=== PATIENT | female | born 1945 | race African-American/Black ===

== ENCOUNTER → 2021-10-11 15:45 | Outpatient (BNVA) | payer OTHER, SELFPAY | PROVIDERS: PCP Internal Medicine; Visit Provider Psychiatry & Neurology Neurology | DX: G25.9 Extrapyramidal and movement disorder, unspecified (principal); F09 Unspecified mental disorder due to known physiological condition | CPT/HCPCS: 99212 ==

== ENCOUNTER → 2021-12-16 09:53 | Outpatient (BNVA) | payer OTHER, SELFPAY | PROVIDERS: PCP Internal Medicine; Visit Provider Nurse Practitioner Family | DX: G25.9 Extrapyramidal and movement disorder, unspecified (principal); F09 Unspecified mental disorder due to known physiological condition; G47.10 Hypersomnia, unspecified; G47.33 Obstructive sleep apnea (adult) (pediatric); Z79.899 Other long term (current) drug therapy | CPT/HCPCS: 99212 ==

== ENCOUNTER → 2022-06-16 09:55 | Outpatient (BNVA) | payer OTHER, SELFPAY | PROVIDERS: PCP Internal Medicine; Visit Provider Nurse Practitioner Family | DX: G25.9 Extrapyramidal and movement disorder, unspecified (principal); F09 Unspecified mental disorder due to known physiological condition; G47.10 Hypersomnia, unspecified; G47.33 Obstructive sleep apnea (adult) (pediatric); Z79.899 Other long term (current) drug therapy | CPT/HCPCS: 99212 ==

== ENCOUNTER 2022-12-19 14:49 | Outpatient (AMB) | payer OTHER, SELFPAY ==
[2022-12-19 14:53] VITALS: BP 118/66; PULSE 86; O2SAT 95; BMI 31.4
--- NOTE | 2022-12-19 14:53 | MHC.OFFVIS ---
Intake Vital Signs 12/19/22 14:53 Height 5 ft 1 in Weight 166 lb 2 oz BMI 31.4 BP 118/66 Blood Pressure Location Rt brachial Position Sitting Pulse 86 Pulse Source Pulse Oximeter Pulse Oximetry (%) 95 Oxygen Delivery Method Room Air Intake Visit Reasons: 6 mnts f/u for sleep - Confirmed Intake Note: Pt presents to the office today for a 6 month follow up for sleep. Her sister states she hasnt seen any improvement in April in the past 6 months. Her sister states she still has no energy everyday. Accompanied by: Sister Allergies No Known Allergies Allergy (Verified 12/19/22 14:56) HPI HPI Comments History of Present Illness Details 77 y/o female patient presents with her sister for follow up of cognitive disorder and TORRES. Pt's sister states that her memory is about same, still forgetful and having difficulty following directions. She is on donepezil 10mg qd and namenda XR 28mg qHS. Pt needs assistance for ADLs and she is getting slow. She lives with her sister and she helps the patient for ADLs, medications and medical appointments. Pt's sister reports that patient has more sleepy during daytime. She is not physically or socially active. She goes to spiritism twice a week. She is on escitlopram to 10 mg qd for depression and her mood is stable. Pt moves slow but better with Simenet 25/100 mg, 1 tab BID. No falls since April. Denies light headedness or dizziness. Pt's sister states that patient uses CPAP almost every night but keep taking off the mask during the sleep. The CPAP compliance the therapy response reviewed but shows not compliant. Pt's sister thinks that the record is wrong, she put the CPAP on every night for patient. She is on APAP [id number]. [facility] Medical History Depression Diabetes Family History Father Cancer Mother HTN (hypertension) Social History Alcohol intake: never Patient Tobacco Use Status: Never used Tobacco Review of Systems ENT Reports Normal hearing present Neuro Reports Normal hearing present Physical Exam Vital Signs: Last Vital Signs Pulse 86 12/19/22 14:53 BP 118/66 12/19/22 14:53 Pulse Ox 95 12/19/22 14:53 Oxygen Delivery Method Room Air 12/19/22 14:53 BMI result Body Mass Index 31.4 Const General: cooperative Nutritional Appearance: overweight Orientation/consciousness: oriented to person and oriented to place Limitations: language barrier Neuro Other: Mild bradykinesia. Decreased facial expression and blink. Gait slow, good stride and steps, decreased arm swings. 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 The total AHI was 68/hr and oxygen corina was 83%. Code(s): G47.33 - Obstructive sleep apnea (adult) (pediatric) Plan Advised patient to continue to take aricept 10mg, namenda XR 28 mg qd and sinemet 25/100 bid. Continue to use APAP at [id number] to treat TORRES. Stressed compliance, nightly and more than 4 hours. Request the CPAP compliance report from [facility]. Encourage patient to increase daily physical and cognitive activity. Medications: Refilled memantine 28 mg PO DAILY 30 ea 6RF 30 days Coding Level of Care Code Est Pt Level 4 (65035) Diagnoses Extrapyramidal and movement disorder G25.9 Cognitive disorder F09 Hypersomnia G47.10 TORRES (obstructive sleep apnea) G47.33
== END 2022-12-19 15:22 | disposition home or self-care (01) ==
PROVIDERS: Visit Provider Nurse Practitioner Family
DX: R41.89 Other symptoms and signs involving cognitive functions and awareness (principal); G25.9 Extrapyramidal and movement disorder, unspecified; G47.10 Hypersomnia, unspecified; G47.33 Obstructive sleep apnea (adult) (pediatric)
CPT/HCPCS: 99214

== ENCOUNTER → 2022-12-19 14:49 | Outpatient (BNVA) | payer OTHER, SELFPAY | PROVIDERS: Visit Provider Nurse Practitioner Family | DX: G47.33 Obstructive sleep apnea (adult) (pediatric) (principal); G47.10 Hypersomnia, unspecified; F09 Unspecified mental disorder due to known physiological condition; G25.9 Extrapyramidal and movement disorder, unspecified | CPT/HCPCS: 99212 ==

== ENCOUNTER 2023-10-06 15:26 | Outpatient (AMB) | payer OTHER, SELFPAY ==
--- NOTE | 2023-10-06 15:28 | MHC.OFFVIS ---
Vital Signs 10/06/23 15:29 Height 5 ft 1 in Weight 158 lb BMI 29.9 BP 118/80 Blood Pressure Location Rt brachial Position Sitting Pulse 80 Pulse Source Pulse Oximeter Pulse Oximetry (%) 97 Oxygen Delivery Method Room Air Intake Visit Reasons: F/U - Conf Intake Note: Patient presents for follow up. Patient uses CPAP here and there. Allergies No Known Allergies Allergy (Verified 10/06/23 15:37) HPI Comments Details: 77-yr-old female presents for f/u visit. Accompanied by her daughter. Pt denies any significant interval medical changes. Patient states that she is using her CPAP machine nightly.? However she has to take it off multiple times at night when she gets up to go to the bathroom,? and then does not always put it back on.? Her daughter thinks that she uses it for about 2 hours a night. ?Her Pap compliance report shows 1 day of 2 hour use. ?However, her dtr notes that in the last 2 months, patient has been having less daytime tiredness.? She does continue to snore. ? She wonders if the status of her sleep apnea has changed. [facility] Medical History Depression Diabetes Family History Father Cancer Mother HTN (hypertension) Social History Alcohol intake: never Patient Tobacco Use Status: Never used Tobacco Physical Exam Vital Signs: Last Vital Signs Pulse 80 10/06/23 15:29 BP 118/80 10/06/23 15:29 Pulse Ox 97 10/06/23 15:29 Oxygen Delivery Method Room Air 10/06/23 15:29 BMI result Body Mass Index 29.9 Const General: cooperative and no acute distress Orientation/consciousness: patient oriented x3 Resp Effort & Inspection: normal respiratory effort and able to speak in complete sentences Neuro General: patient oriented x3 Cranial nerves: Yes CN's II-XII intact bilaterally Cognition (Neuro): normal cognition Psych Appearance: grossly normal Mental Status: mental status grossly normal Speech and movement: Normal speech and movement present Affect: normal affect Attitude: cooperative Assessment & Plan Assessment & Plan (1) TORRES (obstructive sleep apnea): Comment: Severe degree of sleep apnea. The total AHI was 68/hr and oxygen corina was 83%. Code(s): G47.33 - Obstructive sleep apnea (adult) (pediatric) Category: Medical Plan Patient advised to undergo follow-up in-lab sleep study to assess status of sleep apnea. We will request split night PAP titration, if AHI is over 35 events per hour. Reviewed complications of untreated severe obstructive sleep apnea, including cardiovascular, metabolic, and cognitive dysfunction. f/u upon review of above and in 6 months or sooner prn. Orders: Orders RT PSG in-lab sleep study 10/06/23 G47.33 - Obstructive sleep apnea (adult) (pediatric) Coding Level of Care Code Est Pt Level 3 (55513) Diagnoses TORRES (obstructive sleep apnea) G47.33
[2023-10-06 15:29] VITALS: BP 118/80; PULSE 80; O2SAT 97; BMI 29.9
== END 2023-10-06 16:04 | disposition home or self-care (01) ==
PROVIDERS: PCP Internal Medicine; Visit Provider Nurse Practitioner Family
DX: G47.33 Obstructive sleep apnea (adult) (pediatric) (principal)
CPT/HCPCS: 99213

== ENCOUNTER → 2023-10-06 15:26 | Outpatient (BNVA) | payer OTHER, SELFPAY | PROVIDERS: PCP Internal Medicine; Visit Provider Nurse Practitioner Family | DX: G47.33 Obstructive sleep apnea (adult) (pediatric) (principal) | CPT/HCPCS: 99212 ==

== ENCOUNTER → 2023-10-20 20:30 | Outpatient (REF) | payer OTHER, SELFPAY | LOC: HO.SL 20:30 | PROVIDERS: PCP Student in an Organized Health Care Education/Training Program; Visit Provider Nurse Practitioner Family | DX: G47.33 Obstructive sleep apnea (adult) (pediatric) (principal) | CPT/HCPCS: 95810 ==

== ENCOUNTER → 2024-01-10 20:30 | Outpatient (REF) | payer OTHER, SELFPAY | LOC: HO.SL 20:30 | PROVIDERS: PCP Student in an Organized Health Care Education/Training Program; Visit Provider Nurse Practitioner Family | DX: G47.33 Obstructive sleep apnea (adult) (pediatric) (principal) | CPT/HCPCS: 95811 ==

== ENCOUNTER → 2024-01-10 23:00 | Outpatient (BNV) | payer OTHER, SELFPAY | PROVIDERS: PCP Student in an Organized Health Care Education/Training Program; Visit Provider Psychiatry & Neurology Neurology | DX: G47.33 Obstructive sleep apnea (adult) (pediatric) (principal) | CPT/HCPCS: 95811 ==

== ENCOUNTER 2024-05-03 14:36 | Outpatient (AMB) | payer OTHER, SELFPAY ==
--- NOTE | 2024-05-03 14:37 | MHC.OFFVIS ---
Vital Signs 05/03/24 14:37 Height 5 ft 1 in Intake Visit Reasons: 6 month [phone] Intake Note: patient presents for follow up. Allergies No Known Allergies Allergy (Verified 05/03/24 14:37) Medication List - Last Reconciled 05/03/24 by PETER Reeder atorvastatin 20 mg PO DAILY carbidopa-levodopa 25-100 mg (Sinemet) 1 tab PO BID 90 days dapagliflozin propanediol (Farxiga) 10 mg PO DAILY donepezil 10 mg PO QAM dorzolamide-timolol 22.3-6.8 mg/mL 1 drp ophthalmic (eye) BID escitalopram oxalate 10 mg PO DAILY lamotrigine 25 mg PO BID lancets (FreeStyle Lancets) As directed magnesium oxide 400 mg PO BEDTIME 30 days melatonin 3 mg PO BEDTIME 30 days memantine 28 mg PO DAILY 30 days metformin ER 500 mg PO DAILY netarsudil 0.02% (Rhopressa) 1 drp ophthalmic (eye) BEDTIME polyethylene glycol 3350 (Miralax) 17 grams PO DAILY HPI Comments Details: 78-yr-old female presents for f/u televideo visit for TORRES and movement Disorder. Accompanied by her nephew. Pt denies any significant interval medical changes. 10/20/2023, In-lab PSG: Results were consistent with severe obstructive sleep apnea, with AHI 51/hour, REM AHI 68.8/hour, O2 corina 83%, SpO2 under 88% for 1.4 minutes of study, average SpO2 95%, PLMS 0/hour. 01/10/2024, in-lab PAP titration study, showed stabilization of breathing and oxygenation levels at BiPAP 18/14 cm H2O. Following the above studies, an order was sent for BiPAP 18/14 cm H[facility]. Patient states she did not receive a new BiPAP machine. She states she is no longer using any sort of Pap therapy at this point. Patient reports she is independent with ADLs Family does help with IADLs. She states her memory is variable, but okay. She denies hyposmia, dysphagia, tremor, rigidity, parasomnias, gait difficulties, falls. [facility] Medical History Diabetes Depression Family History Father Cancer Mother HTN (hypertension) Social History Alcohol intake: never Patient Tobacco Use Status: Never used Tobacco Telehealth Telehealth Telehealth Platform: [employer] Location of provider rendering services: practice address Location of patient: address on file Patient Identification confirmed using: Name, : Yes Telehealth method: video Patient verbally consented to treatment: Yes Patient verbally consented to billing insurance company: Yes Patient informed of any privacy concerns related to visit: Yes Minutes spent on Phone/Video with Pt.: 16 Assessment & Plan Assessment & Plan (1) Severe obstructive sleep apnea: Code(s): G47.33 - Obstructive sleep apnea (adult) (pediatric) Category: Medical (2) 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 We will follow-up on order for BiPAP 18/14 cm H2O. Once received, use BiPAP nightly greater than 4 hours for optimal effect. Clean and change PAP supplies routinely. Use distilled water in Pap water reservoir take. For movement disorder symptoms: Continue carbidopa levodopa 25-100 mg 1 tab b.i.d. f/u upon review of above and in 6 months or sooner prn. Medications: Refilled carbidopa-levodopa 25-100 mg (Sinemet) 1 tab PO BID 180 tabs 1RF 90 days Coding Level of Care Code Tele Est Pt Level 4 (86201) Diagnoses Severe obstructive sleep apnea G47.33 Extrapyramidal and movement disorder G25.9
== END 2024-05-03 16:10 | disposition home or self-care (01) ==
LOC: HO.HSMS 14:36
PROVIDERS: PCP Student in an Organized Health Care Education/Training Program; Visit Provider Nurse Practitioner Family
DX: G47.33 Obstructive sleep apnea (adult) (pediatric) (principal); G25.9 Extrapyramidal and movement disorder, unspecified
CPT/HCPCS: 99214

== ENCOUNTER 2024-11-05 14:40 | Outpatient (AMB) | payer OTHER, SELFPAY ==
--- OUTSIDE RECORDS SUMMARY | 2024-08-15 07:00 | XMS_ITS ---
Author Organization [facility] [address] Address [address] [place] [address] Care Team Providers Care Smutter Name Role Phone GAVI DE LOS SANTOS Unavailable [phone] SHAREE GORDON Unavailable [phone] REASON FOR VISIT labs Encounters Encounter Location Date Provider Diagnosis [facility] [address] [address] 08/15/2024 SHAREE GORDON Plan Of Treatment Next Appt Details Provider Name:SHAREE GORDON, 11/28/2024 09:30:00 AM, [address], [address], Progress Notes * JEANNETTE DECKER DDOB :1945 (79 yo F)Acc No.[id number]:08/15/2024 Progress Note Patient: Bill CHO JEANNETTE SANTANA Provider: Patience GORDON NP :1945 A ge:78 Y S ex:Female Date:08/15/2024 Address:[address] [place] [address] Subjective: * Chief Complaints: * 1 . Labs. * Medical History: Objective: * Vitals: Assessment: Plan: * Treatment: * Images: Billing Information: * Visit Code: * Procedure Codes: Care Plan Details* * Electronic signature of LEONARDO GORDON on 11/05/2024 at 04:00 PM EDT Sign off status: Pending * Provider: Patience GORDON NP Date: 0 08/15/2024 Generated for Stan yao/Esther/Naun on: 0 11/05/2024 04:00 PM EDT
--- NOTE | 2024-11-05 14:58 | A.OFFVIS_ITS ---
Vital Signs 11/05/24 14:59 Height 5 ft 1 in Weight 169 lb 6 oz BMI 32.0 BP 114/68 Blood Pressure Location Rt brachial Position Sitting Pulse 93 Pulse Source Pulse Oximeter Pulse Oximetry (%) 97 Oxygen Delivery Method Room Air Intake Visit Reasons: Follow Up 6mo Intake Note: Patient presents 6 month follow up for TORRES. Accompanied by: Sister Allergies No Known Allergies Allergy (Verified 11/05/24 14:59) HPI Comments Details: 79-yr-old female presents for f/u televideo visit for TORRES and movement Disorder. Accompanied by her daughter. Pt denies any significant interval medical changes. 10/20/2023, In-lab PSG: Results were consistent with severe obstructive sleep apnea, with AHI 51/hour, REM AHI 68.8/hour, O2 corina 83%, SpO2 under 88% for 1.4 minutes of study, average SpO2 95%, PLMS 0/hour. 01/10/2024, in-lab PAP titration study, showed stabilization of breathing and oxygenation levels at BiPAP 18/14 cm H2O. Since the last visit, patient has started BiPAP 18/14 cm H2O nightly, however patient is prone to taking it off after going to the bathroom. She denies any specific difficulties using her BiPAP machine. She states she sleeps well with BiPAP. * BiPAP compliance [facility] report * [facility] * Compliance Report: 10/06/2024 - 11/04/2024 * Overall usage days days 30/30 days (100%) * Usage greater than 4 hours: 17% * Average usage (days used) 2 hours 48 minutes * [employer] [facility] * Serial number [id number] * Mode Spont IPAP 18 cmH2O EPAP 14 cmH2O Easy-Breathe On * Median leaks: 8.8 3 2 per minute * Residual AHI: 2.8 per hour Patient reports she is independent with ADLs, however daughter states she needs help with socks and shoes. Family does help with IADLs. She states her memory is variable, but okay. Patient does not exercise much-typically just walks with in the house from the kitchen to the living room. She does enjoy playing dominoes with the family. Patient denies any recent involuntary movements She denies hyposmia, dysphagia, tremor, rigidity, parasomnias, gait difficulties, falls. PFSH Medical History Diabetes Depression Family History Father Cancer Mother HTN (hypertension) Social History Alcohol intake: never Patient Tobacco Use Status: Never used Tobacco Physical Exam Vital Signs: Last Vital Signs Pulse 93 11/05/24 14:59 BP 114/68 11/05/24 14:59 Pulse Ox 97 11/05/24 14:59 Oxygen Delivery Method Room Air 11/05/24 14:59 BMI result Body Mass Index 32.0 Const General: cooperative Nutritional Appearance: overweight Neuro Other: Alert and responding appropriately Mild facial expression and blink No tremors FFM decreased mildly R>L Foot taps - decreased amanda R>L Slow to stand, decreased arm swing, starts steps, steady gait, steady turn Assessment & Plan Assessment & Plan (1) Severe obstructive sleep apnea: Code(s): G47.33 - Obstructive sleep apnea (adult) (pediatric) Category: Medical (2) Extrapyramidal and movement disorder: Comment: ?parkinsons Code(s): G25.9 - Extrapyramidal and movement disorder, unspecified Category: Medical Plan For severe TORRES: Continue BiPAP 18/14 cm H2O, as patient is having improved sleep with the use. Patient is encouraged to use nightly greater than 4 hours for optimal effect, however use maybe limited due to patient's cognitive impairments. Clean and change PAP supplies routinely. Use distilled water in Pap water reservoir take. For movement disorder symptoms: Continue carbidopa levodopa 25-100 mg 1 tab b.i.d. Continue memantine ER 28 mg daily. Patient encouraged to engage in regular cognitive and social stimulating activities. Patient encouraged to increase regular physical activity. f/u upon review of above and in 6 months or sooner prn. Coding Level of Care Code Est Pt Level 4 (13377) Diagnoses Severe obstructive sleep apnea G47.33 Extrapyramidal and movement disorder G25.9
[2024-11-05 14:59] VITALS: BP 114/68; PULSE 93; O2SAT 97; BMI 32.0
--- OUTSIDE RECORDS SUMMARY | 2024-11-05 16:00 | XMS_ITS | Clinical Summary ---
Author Organization [facility] Address [address] [place] [address] Phone Care Team Providers Care Starting Gate Driver Name Role Phone Gavi Puala MD Primary Care Provider [phone] Surgical History Surgery Date Site/Laterality Comments SHOULDER SURGERY Right PROCEDURE: HISTORICAL SHOULDER SURGERY CHOLECYSTECTOMY PROCEDURE: [place] CHOLECYSTECTOMY COLONOSCOPY PROCEDURE: HISTORICAL COLONOSCOPY Medical History Medical History Date Comments Depression DX:Depression Family History Medical History Relation Name Comments Hypertension Mother Relation Name Status Comments Brother 1 Alive Brother 2 Alive Brother 3 Alive Brother 4 Alive Father Mother Sister 1 Alive Sister 2 Alive Sister 3 Alive Sister 4 Alive Sister 5 Alive Social History Tobacco Use Types Packs/Day Years Used Date Smoking Tobacco: Never Smokeless Tobacco: Never Alcohol Use Standard Drinks/Week Comments Never 0 (1 standard drink = 0.6 oz pur e alcohol) Comments Unknown Sex and Gender Information Value Date Recorded Sex Assigned at Not on file Legal Sex Female 2:14 AM EST Gender Identity Not on file Sexual Orientation Not on file Obstetrics History Plan of Treatment Health Maintenance Due Date Last Done Comments Diabetes: Annual Foot Exam 10/23/1957 Diabetes: Annual Retina Eye Exam 10/23/1957 Pneumococcal Vaccine: 50+ Years (1 of 2 - PCV) 10/23/1966 Zoster Vaccines (1 of 2) 10/23/1997 Depression Screening 03/27/2022 Falls Risk Assessment 03/27/2022 Hepatitis C Screening 03/27/2022 Osteoporosis Screening (Bone Density Screening) 03/27/2022 Social Influencers of Health Screening 03/27/2022 Diabetes: Annual Urine Albumin-Creatinine Ratio (uACR) 04/07/2022 RSV Immunization Adult Patients (1 - 1-dose 75+ series) 10/23/2022 COVID-19 Vaccine ( season) 2023 03/16/2021 Influenza Vaccine (#1) 2024 2, 01/26/2021, 02/22/2020 Diabetes: Blood Sugar Control Test (HGBA1C) 02/12/2025 08/13/2024 Diabetes: Annual GFR (Glomerular Filtration Rate) 08/13/2025 08/13/2024 Hypertension/CHF/CAD Annual BMP Blood Test 08/13/2025 08/13/2024 Cholesterol Screening (Lipid Panel) 08/13/2029 08/13/2024 DTaP,Tdap,and Td Vaccines (2 - Td or Tdap) 04/30/2032 04/30/2022 Breast Cancer Screening Discontinued 06/21/19 24, 05/26/2022, 04/01/2021, Additional history exists HIB Vaccines Aged Out No longer eligi ble based on patient's age to complete this topic HPV Vaccines Aged Out No longer eligi ble based on patient's age to complete this topic Hepatitis A Vaccines Aged Out No long er eligible based on patient's age to complete this topic Hepatitis B Vaccines Aged Out No long er eligible based on patient's age to complete this topic IPV Vaccines Aged Out No longer eligi ble based on patient's age to complete this topic MMR Vaccines Aged Out No longer eligi ble based on patient's age to complete this topic Meningococcal ACWY Vaccine Aged Out N o longer eligible based on patient's age to complete this topic Meningococcal B Vaccine Aged Out No l onger eligible based on patient's age to complete this topic RSV Immunization Patients Under 20 months Aged Out No longer eligible based on patient's age to complete this topic Varicella Vaccines Aged Out No longer eligible based on patient's age to complete this topic Procedures Procedure Name Priority Date/Time Associated Diagnosis Comments URINALYSIS WITH REFLEX MICROSCOPIC Routine 08/13/2024 3:37 PM EDT Diabetic complication (CMS/HCC V24, CMS/HCC V28) Hyperlipemia Myxedema heart disease Avitaminosis D URINALYSIS WITH REFLEX MICROSCOPIC Routine 08/13/2024 3:37 PM EDT Diabetic complication (CMS/HCC V24, CMS/HCC V28) Hyperlipemia Myxedema heart disease Avitaminosis D CULTURE URINE Routine 08/13/2024 3:37 PM EDT Diabetic complication (CMS/HCC V24, CMS/HCC V28) Hyperlipemia Myxedema heart disease Avitaminosis D CBC WITH AUTO DIFFERENTIAL Routine 08/13/2024 8:09 AM EDT Diabetic complication (CMS/HCC V24, CMS/HCC V28) Hyperlipemia Myxedema heart disease Avitaminosis D VITAMIN D 25 HYDROXY Routine 08/13/2024 8:09 AM EDT Diabetic complication (CMS/HCC V24, CMS/HCC V28) Hyperlipemia Myxedema heart disease Avitaminosis D CBC AND DIFFERENTIAL Routine 08/13/2024 8:09 AM EDT Diabetic complication (CMS/HCC V24, CMS/HCC V28) Hyperlipemia Myxedema heart disease Avitaminosis D COMPREHENSIVE METABOLIC PANEL Routine 08/13/2024 8:09 AM EDT Diabetic complication (CMS/HCC V24, CMS/HCC V28) Hyperlipemia Myxedema heart disease Avitaminosis D HEMOGLOBIN A1C Routine 08/13/2024 8:09 AM EDT Diabetic complication (CMS/HCC V24, CMS/HCC V28) Hyperlipemia Myxedema heart disease Avitaminosis D LIPID PANEL WITH REFLEX TO DIRECT LDL Routine 08/13/2024 8:09 AM EDT Diabetic complication (CMS/HCC V24, CMS/HCC V28) Hyperlipemia Myxedema heart disease Avitaminosis D THYROID STIMULATING HORMONE Routine 08/13/2024 8:09 AM EDT Diabetic complication (CMS/HCC V24, CMS/HCC V28) Hyperlipemia Myxedema heart disease Avitaminosis D VISH SCREENING DIGITAL Routine 06/21/2023 4:40 PM EST Encounter for screening mammogram for malignant neoplasm of breast from Last 3 Months or Most Recently Relevant to Health Maintenance Results * Urinalysis with reflex microscopic (08/13/2024 3:37 PM EDT) Pathologist [facility] [place] Urine 1.006 1.003 - 1.030 LAB URINALYSIS - AUTOMATED METHOD 08/13/2024 3:54 PM EDT [facility] pH, Urine 8.0 5.0 - 8.0 pH LAB URINALYSIS - AUTOMATED METHOD 08/13/2024 3:54 PM EDT [facility] Leukocytes, Urine Negative Negative LAB URINALYSIS - AUTOMATED METHOD 08/13/2024 3:54 PM EDT [facility] Nitrite, Urine Negative Negative LAB URINALYSIS - AUTOMATED METHOD 08/13/2024 3:54 PM EDT [facility] Protein, Urine Negative <=Trace mg/dL LAB URINALYSIS - AUTOMATED METHOD 08/13/2024 3:54 PM [facility] Glucose, Urine Negative Negative mg/dL LAB URINALYSIS - AUTOMATED METHOD 08/13/2024 3:54 PM T [facility] Ketones, Urine Negative Negative mg/dL LAB URINALYSIS - AUTOMATED METHOD 08/13/2024 3:54 PM T [facility] Urobilinogen, Urine 0.2 0.2 - 1.0 mg/dL LAB URINALYSIS - AUTOMATED METHOD 08/13/2024 3:54 PM [facility] Bilirubin, Urine Negative Negative LAB URINALYSIS - AUTOMATED METHOD 08/13/2024 3:54 PM T [facility] Blood, Urine Negative Negative LAB URINALYSIS - AUTOMATED METHOD 08/13/2024 3:54 PM [facility] Urine Urine specimen obtained by clean catch procedure / Unknown Non-blood Collection / Unknown 08/13/2024 3:37 PM EDT 08/13/2024 3:43 PM EDT us Ronni Bradley NP LAB URINE ORDERABLES Final Re sult [facility] [address] [place] [address], [place] [phone] * Culture urine (08/13/2024 3:37 PM EDT) [facility] Culture, Urine No growth 08/14/2024 7:25 AM EDT [facility] Urine Urine specimen obtained by clean catch procedure / Unknown Non-blood Collection / Unknown 08/13/2024 3:37 PM EDT 08/13/2024 3:43 PM EDT Ronni Bradley NP LAB MICROBIOLOGY - GENERAL OR DERABLES Final Result [facility] [address] [place] [address], [place] [phone] * Lipid panel with reflex to direct LDL (08/13/2024 8:09 AM EDT) [facility] Cholesterol 160 0 - 200 mg/dL LAB CHEMISTRY METHOD 08/13/2024 10:10 AM [facility] Triglycerides 131 0 - 150 mg/dL LAB CHEMISTRY METHOD 08/13/2024 10:10 AM [facility] HDL 69 >=40 mg/dL LAB CHEMISTRY METHOD 08/13/2024 10:10 AM [facility] LDL Calculated 65 0 - 100 mg/dL LAB CHEMISTRY METHOD 08/13/2024 10:10 AM T [facility] VLDL Cholesterol Rogelio 26.2 mg/dL LAB CHEMISTRY METHOD 08/13/2024 10:10 AM EDT [facility] Non HDL Chol. (LDL+VLDL) 91 <145 mg/dL LAB CHEMISTRY METHOD 08/13/2024 10:10 AM [facility] Chol/HDL Ratio 2.3 0.0 - 4.4 LAB CHEMISTRY METHOD 08/13/2024 10:10 AM [facility] Blood Venous blood specimen / Unknown Venipuncture / Unknown 08/13/2024 8:09 AM EDT 08/13/2024 9:10 AM EDT us Ronni Bradley RELAY MOTORMAN LAB BLOOD ORDERABLES Final Re sult [facility] [address] [place] [address], * (ABNORMAL) CBC auto differential (08/13/2024 8:09 AM EDT) WBC 7.0 4.8 - 10.8 K/mcL LAB HEMETOLOGY METHOD 08/13/2024 9:31 AM [facility] RBC 4.10 3.80 - 4.80 M/mcL LAB HEMETOLOGY METHOD 08/13/2024 9:31 AM [facility] Hemoglobin 11.0(L) 11.5 - 16.0 g/dL LAB HEMETOLOGY METHOD 08/13/2024 9:31 AM [facility] Hematocrit 35.6 35.0 - 47.0 % LAB HEMETOLOGY METHOD 08/13/2024 9:31 AM [facility] MCV 87.3 79.0 - 98.0 FL LAB HEMETOLOGY METHOD 08/13/2024 9:31 AM [facility] MCH 27.0 27.0 - 32.0 pcg LAB HEMETOLOGY METHOD 08/13/2024 9:31 AM [facility] MCHC 30.9(L) 32.0 - 37.0 g/dL LAB HEMETOLOGY METHOD 08/13/2024 9:31 AM [facility] RDW 14.0 11.0 - 15.0 % LAB HEMETOLOGY METHOD 08/13/2024 9:31 AM [facility] Platelets 302 130 - 400 K/mcL LAB HEMETOLOGY METHOD 08/13/2024 9:31 AM [facility] MPV 11.0 7.0 - 11.0 FL LAB HEMETOLOGY METHOD 08/13/2024 9:31 AM [facility] NRBC 0.0 <1.0 % LAB HEMETOLOGY METHOD 08/13/2024 9:31 AM [facility] NRBC Absolute 0.00 <0.10 K/mcL LAB HEMETOLOGY METHOD 08/13/2024 9:31 AM [facility] Neutrophils Relative 55.5 % LAB HEMETOLOGY METHOD 08/13/2024 9:31 AM [facility] Lymphocytes Relative 33.8 % LAB HEMETOLOGY METHOD 08/13/2024 9:31 AM [facility] Monocytes Relative 8.9 % LAB HEMETOLOGY METHOD 08/13/2024 9:31 AM [facility] Eosinophils Relative 1.1 % LAB HEMETOLOGY METHOD 08/13/2024 9:31 AM [facility] Basophils Relative 0.4 % LAB HEMETOLOGY METHOD 08/13/2024 9:31 AM [facility] Immature Granulocytes Relative 0.3 % LAB HEMETOLOGY METHOD 08/13/2024 9:31 AM [facility] Neutrophils Absolute 3.90 1.50 - 7.00 K/mcL LAB HEMETOLOGY METHOD 08/13/2024 9:31 AM [facility] Lymphocytes Absolute 2.38 1.00 - 5.00 K/mcL LAB HEMETOLOGY METHOD 08/13/2024 9:31 AM [facility] Monocytes Absolute 0.63 0.20 - 1.00 K/mcL LAB HEMETOLOGY METHOD 08/13/2024 9:31 AM [facility] Eosinophils Absolute 0.08 0.00 - 0.50 K/[facility] LAB HEMETOLOGY METHOD 08/13/2024 9:31 AM EDT [facility] Basophils Absolute 0.03 0.00 - 0.20 K/[facility] LAB HEMETOLOGY METHOD 08/13/2024 9:31 AM EDT [facility] Immature Granulocytes Absolute 0.02 0.00 - 0.03 K/[facility] LAB HEMETOLOGY METHOD 08/13/2024 9:31 AM EDT [facility] Blood Venous blood specimen / Unknown Venipuncture / Unknown 08/13/2024 8:09 AM EDT 08/13/2024 9:11 AM EDT Ronni Bradley [employer] LAB BLOOD ORDERABLES Final Re sult Performing Organization Address City/[facility]/ZIP Co de Phone Number [facility] [address] [place] [address], [place] [phone] * Vitamin D 25 hydroxy (08/13/2024 8:09 AM EDT) Vit D, 25-Hydroxy 30.1 30.0 - 80.0 ng/mL LAB CHEMISTRY METHOD 08/13/2024 11:09 AM EDT [facility] Blood Venous blood specimen / Unknown Venipuncture / Unknown 08/13/2024 8:09 AM EDT 08/13/2024 9:10 AM EDT Ronni Bradley [employer] LAB BLOOD ORDERABLES Final Re sult [facility] [address] [place] [address], [place] [phone] * Thyroid stimulating hormone (08/13/2024 8:09 AM EDT) TSH 2.02 0.40 - 4.00 mcIU/mL LAB CHEMISTRY METHOD 08/13/2024 11:10 AM EDT [facility] Blood Venous blood specimen / Unknown Venipuncture / Unknown 08/13/2024 8:09 AM EDT 08/13/2024 9:10 AM EDT Ronni Bradley [employer] LAB BLOOD ORDERABLES Final Re sult Performing Organization Address [facility]/ZIP Co de Phone Number [facility] [address] [place] [address], [place] [phone] * (ABNORMAL) Hemoglobin A1c (08/13/2024 8:09 AM EDT) Hemoglobin A1C 6.8(H) <6.5 % LAB CHEMISTRY METHOD 08/13/2024 11:45 AM EDT [facility] Mean Bld Glu Estim. 148 mg/dL LAB CHEMISTRY METHOD 08/13/2024 11:45 AM EDT [facility] Blood Venous blood specimen / Unknown Venipuncture / Unknown 08/13/2024 8:09 AM EDT 08/13/2024 9:11 AM EDT us Ronni Bradley [employer]AY [employer] LAB BLOOD ORDERABLES Final Re sult Performing Organization Address [facility]/ZIP Co de Phone Number [facility] [address] [place] [address], * (ABNORMAL) Comprehensive metabolic panel (08/13/2024 8:09 AM EDT) Sodium 138 133 - 145 mmol/L LAB CHEMISTRY METHOD 08/13/2024 10:10 AM EDT [facility] Potassium 4.4 3.5 - 5.5 mmol/L LAB CHEMISTRY METHOD 08/13/2024 10:10 AM EDT [facility] Chloride 105 96 - 110 mmol/L LAB CHEMISTRY METHOD 08/13/2024 10:10 AM EDT [facility] CO2 27 21 - 32 mmol/L LAB CHEMISTRY METHOD 08/13/2024 10:10 AM [facility] Anion Gap 6 3 - 11 LAB CHEMISTRY METHOD 08/13/2024 10:10 AM [facility] Glucose 108(H) 70 - 100 mg/dL LAB CHEMISTRY METHOD 08/13/2024 10:10 AM [facility] BUN 19 5 - 25 mg/dL LAB CHEMISTRY METHOD 08/13/2024 10:10 AM [facility] Creatinine 0.84 0.50 - 1.10 mg/dL LAB CHEMISTRY METHOD 08/13/2024 10:10 AM [facility] eGFR 72 >=60 mL/min/1. 73m2 LAB CHEMISTRY METHOD 08/13/2024 10:10 AM [facility] Comment:Calculation based on the Chronic Kidney Disease Epidemiology Collaboration (CKD-EPI) equation refit without adjustment for race. BUN/Creatinine Ratio 22.6 LAB CHEMISTRY METHOD 08/13/2024 10:10 AM [facility] Calcium 9.4 8.5 - 10.5 mg/dL LAB CHEMISTRY METHOD 08/13/2024 10:10 AM [facility] AST (SGOT) 17 10 - 42 unit/L LAB CHEMISTRY METHOD 08/13/2024 10:10 AM [facility] ALT (SGPT) 32 10 - 60 unit/L LAB CHEMISTRY METHOD 08/13/2024 10:10 AM [facility] Alkaline Phosphatase 91 42 - 121 unit/L LAB CHEMISTRY METHOD 08/13/2024 10:10 AM [facility] Total Protein 7.4 6.0 - 8.0 g/dL LAB CHEMISTRY METHOD 08/13/2024 10:10 AM [facility] Albumin 3.9 3.2 - 5.0 g/dL LAB CHEMISTRY METHOD 08/13/2024 10:10 AM [facility] Total Bilirubin 0.3 0.0 - 1.4 mg/dL LAB CHEMISTRY METHOD 08/13/2024 10:10 AM EDT [facility] Blood Venous blood specimen / Unknown Venipuncture / Unknown 08/13/2024 8:09 AM EDT 08/13/2024 9:10 AM EDT us Ronni Bradley RELAY MOTOR[employer] LAB BLOOD ORDERABLES Final Re sult [facility] [address] [place] [address], * VISH SCREENING DIGITAL (06/21/2023 4:40 PM EST) Anatomical Region Laterality Modality Mammography 06/21/2023 3:37 PM EST Narrative 06/21/2023 4:40 PM EST [facility] Diagnostic Imaging Department [address] [place] [address] Patient: APRIL JEAN /Age/Sex: 1945 - 77 - F Unit#: [id number] Location/Status: SPDIMAM/REG CLI Mnemonic/Ordering Site: DIGSC/SPMAM Ordering Physician: GAVI PAULA MD Vish Screening Digital - 06/21/23 - 3028 Report Status:Signed EXAM: Vish Screening Digital EXAM DATE AND TIME: 06/21/2023 4:22 PM HISTORY: Annual screening COMPARISON: Multiple exams dating back to 2019 TECHNIQUE: Bilateral digital breast tomosynthesis was performed in the CC and MLO projections. Computer aided detection with [employer] 3D 3.1 was employed. TISSUE DENSITY: b. There are scattered areas of fibroglandular density. FINDINGS: No suspicious masses, grouped microcalcifications, or areas of architectural distortion are seen. The skin and vascularity are unremarkable. IMPRESSION: Stable mammographic appearance of the breasts. No evidence of malignancy is seen. A negative mammogram in the presence of a clinically suspicious palpable abnormality does not preclude the possibility of malignancy or alter the indications for biopsy. BI-RADS: Category 1: Negative RECOMMENDATION(S): 1: Routine screening mammogram BILATERAL in 1 year. 0491F, 7074F Dictating Physician: COURTNEY CHERRY MD Electronically Signed by: COURTNEY CHERRY MD Dic Date/Time: 06/21/23 1639 Sign date/Time: 06/21/23 1640 Procedure Note Courtney Cherry MD - 12/11/2023 [facility] Diagnostic Imaging Department [address] [place] [address] Patient: APRIL JEAN./Age/Sex: 1945 - 77 -F Unit#: [id number] Location/Status: SPDIMAM/REG CLI Mnemonic/Ordering Site: [facility] Ordering Physician: GAVI PAULA MD Vish Screening Digital - 06/21/23 - 1621 Report Status:Signed EXAM: [facility] Heart Screening Digital EXAM DATE AND TIME: 06/21/2023 4:22 PM HISTORY: Annual screening COMPARISON: Multiple exams dating back to 2019 TECHNIQUE: Bilateral digital breast tomosynthesis was performed in the CCand MLO projections. Computer aided detection with [email or web address]. AI 3D 3.1was employed. TISSUE DENSITY: b. There are scattered areas of fibroglandular density. FINDINGS: No suspicious masses, grouped microcalcifications, or areas ofarchitectural distortion are seen. The skin and vascularity are unremarkable. IMPRESSION: Stable mammographic appearance of the breasts. No evidence of malignancyis seen. A negative mammogram in the presence of a clinically suspicious palpable abnormality does not preclude the possibility of malignancy or alter the indications for biopsy. BI-RADS: Category 1: Negative RECOMMENDATION(S): 1: Routine screening mammogram BILATERAL in 1 year. 3341F, 7027F Dictating Physician: COURTNEY CHERRY MD Electronically Signed by: COURTNEY CHERRY MD Dic Date/Time: 06/21/23 1639 Sign date/Time: 06/21/23 1640 Gavi Paula MD IMG BI PROCEDURES Final Result from Last 3 Months or Most Recently Relevant to Health Maintenance Insurance [facility] Member Subscriber Plan / Payer (Ef fective 2018-Present) Name:April Jean Relation to Subscriber:Self Name:April Jean Payer ID:[id number] Group ID:[id number] Type:Not on file Address: [place] [address] [place] [id number] Care Teams Starting Gate Driver Relationship Specialty Start Date End Date Gavi Paula MD [address] [place] [address] (work) PCP - General Internal Medicine 08/13/24
--- OUTSIDE RECORDS SUMMARY | 2024-11-05 16:00 | XMS_ITS | Patient Health Record ---
Author Organization [facility] Address [address] [place] [address] Care Team Providers Care Psychiatric Nurse Name Role Phone Paula, Haydenmargie Primary Care Provider Lul Cook Unavailable [phone] Allergies No Known Allergies Reason For Referral No Information Medications Medication SIG (Take, Route, Frequency, Duration) Notes Start Date End Date Status Abilify Active Memantine HCl 10 MG 1 tablet Orally Twic e a day; Duration: 30 day(s) 01/29/2019 Active Mounjaro 2.5 MG/0.5ML Subcutaneous; Dura tion: 28 Days Active Farxiga Not-Taking metFORMIN HCl 500 MG 1 tablet with a vineet l Orally Once a day; Duration: 30 day(s) 01/29/2019 Not-Taking Escitalopram Oxalate 10 MG 1 tablet Orally Once a day; Duration: 30 day(s) 01/29/2019 Not-Venkat ing Extra Depth Orthopedic Shoes, (1) Pair With (3) Pair Custom Heat Molded Multidensity Innersoles Dx: NIDDM/PVD(E11.51), Hammertoe Foot Deformity(M20.41,M20.42) , Preulcerative Skin Lesion(s)(L85.1) Wear Daily; Duration: 365 days 07/29/2024 Active Social History Tobacco Use: Social History Observation Description Date Details (start date - stop date) Never Smoker NA - NA Alcohol Screen Question Answer Notes Did you have a drink containing alcohol in the p ast year? No Points 0 Interpretation Negative Tobacco use other than smoking: Question Answer Notes Are you an other tobacco user? No Tobacco Control (Standard) Question Answer Notes Tobacco use: Nonsmoker Additional Findings: Tobacco non-user Current no nsmoker Problems Problem Type SNOMED Code ICD Code Onset Dates Problem Status W/U Status Risk Notes Problem Acquired hammer toe of right foot ([id number] 33596) Other hammer toe(s) (acquired), right foot (M20.41) Active confirmed Response to treatment,Im provement Problem Type 2 diabetes mellitus with diabetic peripheral angiopathy without gangrene (E11.51) Active confirmed Q7(A), Q8(2B), Q9(1B,2C) Problem Acquired hammer toe of left foot (43683059536 ) Other hammer toe(s) (acquired), left foot (M20.42) Active confirmed Response to treatment,Im provement Vital Signs Height 5ft 2in in 07/29/2024 Weight 165 lbs 07/29/2024 BMI 30.18 kg/m2 07/29/2024 Procedures Procedure Date Ordered Date Performed Result Body Sit e 13846-LTAPBBP NAIL, 6 OR MORE 07/29/2024 N/A 83327-Ctgmeohj Plate 07/29/2024 N/A 66232-LMZK SKIN LESIONS, OVER 4 07/29/2024 N/A Encounters Encounter Location Date Provider Diagnosis [facility] [address] 07/29/2024 Lul Ross Other hammer toe(s) (acquired), right foot M20.41 ; Other hammer toe(s) (acquired), left foot M20.42 ; Type 2 diabetes mellitus with diabetic peripheral angiopathy without gangrene E11.51 ; Tinea unguium B35.1 ; Pain in right toe(s) M79.674 ; Pain in left toe(s) M79.675 and Ingrown nail L60.[address] [facility] [address] 10/28/2024 Lul Ross Assessments Encounter Date Diagnosis (ICD Code) Assessment Notes Treatment Notes Treatment Clinical Notes Section Notes 07/29/2024 Other hammer toe(s) (acquired), right foot (ICD-10 - M20.41) Patient Educated with: DIABETIC FOOT CARE INSTRUCTIONS.p df (DIABETIC FOOT CARE INSTRUCTIONS.p df) 07/29/2024 Other hammer toe(s) (acquired), left foot (ICD-10 - M20.42) 07/29/2024 Type 2 diabetes mellitus with diabetic peripheral angiopathy without gangrene (ICD-10 - E11.51) Q7(A), Q8(2B), Q9(1B,2C) 07/29/2024 Tinea unguium (ICD-10 - B35.1) 07/29/2024 Pain in right toe(s) (ICD-10 - M79.674) 07/29/2024 Pain in left toe(s) (ICD-10 - M79.675) 07/29/2024 Ingrown nail (ICD-10 - L60.0) Plan Of Treatment Pending Test Test Name Order Date X ray : Foot, left 3V 02/21/2022 75158-HPVXTKW NAIL, 6 OR MORE 05/25/2022 04083-GLHBXDH NAIL, 6 OR MORE 01/12/2022 14074-YKFUDEI NAIL, 6 OR MORE 02/17/2021 49192-FCCPTAS NAIL, 6 OR MORE 09/15/2021 57604-YJWBPRS NAIL, 6 OR MORE 01/31/2019 44629-QJLWITQ NAIL, 6 OR MORE 05/02/2019 01516-XITSVKC NAIL, 6 OR MORE 11/27/2019 56852-VVOGWCX NAIL, 6 OR MORE 02/26/2020 38256-KBUGQYB NAIL, 6 OR MORE 05/27/2020 57932-QBPCVUL NAIL, 6 OR MORE 08/26/2020 27647-TVIREMP NAIL, 6 OR MORE 11/28/2022 12536-SNWKOHU NAIL, 6 OR MORE 02/22/2023 51089-HTYXSIA NAIL, 6 OR MORE 07/17/2023 42600-QHHXGPZ NAIL, 6 OR MORE 10/16/2023 26729-MANAKNR NAIL, 6 OR MORE 07/29/2024 15048-Xcsq Destruction, 1-14 11/28/2022 09679-Vlly Destruction, 1-14 10/16/2023 86223-Ruve Destruction, 1-14 07/17/2023 28977-Laqi Destruction, 1-14 02/22/2023 73960-Jefz Destruction, 1-14 08/26/2020 65238-Nqkd Destruction, 1-14 05/27/2020 70500-Xbme Destruction, 1-14 02/26/2020 10845-Jdmj Destruction, 1-14 11/27/2019 32671-Ubsy Destruction, 1-14 09/15/2021 44974-Glka Destruction, 1-14 02/17/2021 04119-Szlh Destruction, 1-14 01/12/2022 68809-Hrrj Destruction, 1-14 05/25/2022 78372-Rgvucewe Plate 05/25/2022 22258-Ttjleyqc Plate 01/12/2022 16563-Qzciuxjr Plate 02/17/2021 43943-Rnxqdmqr Plate 09/15/2021 20214-Necquiaa Plate 11/27/2019 31501-Xcgoochu Plate 02/26/2020 44088-Kcumgsca Plate 05/27/2020 64940-Wivmennn Plate 08/26/2020 35199-Dakpwuxt Plate 02/22/2023 18125-Ngjmgkcc Plate 11/28/2022 77553-Fklrebmx Plate 07/17/2023 94227-Mzxpkmgs Plate 10/16/2023 43395-Xnnejdcq Plate 07/29/2024 79178-Ucgeyvgs Plate Each Additional 00439-Ejtoknpk Plate Each Additional 52711-Dyaytxqu Plate Each Additional 10/2022 76506-Pjqldxgw Plate Each Additional 04/2022 14834-Fjjxyyba Plate Each Additional 08/2020 03378-Vpfdcsex Plate Each Additional 06/2020 98020-Abelxddz Plate Each Additional 07/2019 99066-Nufjqeth Plate Each Additional 08/2019 68469-Slvysupu Plate Each Additional 11040-Ssvnpbky Plate Each Additional 23232-Nyzrdqta Plate Each Additional 64373-Imcplecc Plate Each Additional 04/2022 72028-DMBMKBK SKIN/TISSUE 02/21/2022 14740 I&D ABSCESS- SIMPLE,SINGLE 022 12540-MFHO SKIN LESIONS, OVER 4 02/23/20 23 78714-BUWT SKIN LESIONS, OVER 4 07/17/19 24 24807-RNIF SKIN LESIONS, OVER 4 10/16/19 24 14921-SAYC SKIN LESIONS, OVER 4 07/30/19 48999-LNXP SKIN LESIONS, OVER 4 11/29/19 23 88051-LAMI SKIN LESIONS, OVER 4 05/25/19 23 78991-EDYP SKIN LESIONS, OVER 4 01/13/20 63474-ZEPG SKIN LESIONS, OVER 4 02/18/20 21 47487-PMCI SKIN LESIONS, OVER 4 09/16/19 66389-QZFO SKIN LESIONS, OVER 4 05/27/19 97612-WMWX SKIN LESIONS, OVER 4 08/27/19 02855-YQHM SKIN LESIONS, 2 TO 4 02/26/20 Next Appt Details Provider Name:Lul Katelynn Ross , 01/20/2025 03:00:00 PM, [address] [facility], [facility] [address], [place], [address], Insurance Providers Payer Name Payer Address Payer Phone Subscriber Number Group Number Insured Name Patient Relationship to Insured Coverage Start Date Coverage End Date [facility] SCO Claims [address] [place] [id number] April Camacho Self - patient is the insured Medical (General) History Medical History History ICD Code Alzheimers disease Depression Diabetic lots of cramps Surgical History Surgery Date(Month/Year) gall bladder 1987 Hospitalization History Reason Date(Month/Year) [facility]22 [facility] Const[facility] 02/13/20
== END 2024-11-05 15:57 | disposition home or self-care (01) ==
LOC: HO.HSMS 14:40
PROVIDERS: PCP Student in an Organized Health Care Education/Training Program; Visit Provider Nurse Practitioner Family
DX: G47.33 Obstructive sleep apnea (adult) (pediatric) (principal); G25.9 Extrapyramidal and movement disorder, unspecified
CPT/HCPCS: 99214

== ENCOUNTER → 2024-11-05 14:40 | Outpatient (BNVA) | payer OTHER, SELFPAY | PROVIDERS: PCP Student in an Organized Health Care Education/Training Program; Visit Provider Nurse Practitioner Family | DX: G47.33 Obstructive sleep apnea (adult) (pediatric) (principal); G25.9 Extrapyramidal and movement disorder, unspecified | CPT/HCPCS: 99212 ==

== ENCOUNTER 2024-12-05 12:57 | Outpatient (AMB) | payer OTHER, SELFPAY ==
--- OUTSIDE RECORDS SUMMARY | 2024-08-15 07:00 | XMS_ITS ---
Author Organization [facility] [address] Address [address] [place] [address] Care Team Providers Care Publicity Director Name Role Phone GAVI DE LOS SANTOS Unavailable [phone] SHAREE GORDON Unavailable [phone] REASON FOR VISIT labs Encounters Encounter Location Date Provider Diagnosis [facility] [address] [address] 08/15/2024 SHAREE GORDON Plan Of Treatment Next Appt Details Provider Name:SHAREE GORDON, 03/31/2025 10:30:00 AM, [address], [address], Progress Notes * JEANNETTE DECKER DDOB :1945 (79 yo F)Acc No.[id number]:08/15/2024 Progress Note Patient: Bill CHO JEANNETTE SANTANA Provider: Patience GORDON NP :1945 A ge:78 Y S ex:Female Date:08/15/2024 Address:[address] [place] [address] Subjective: * Chief Complaints: * 1 . Labs. * Medical History: Objective: * Vitals: Assessment: Plan: * Treatment: * Images: Billing Information: * Visit Code: * Procedure Codes: Care Plan Details* * Electronic signature of LEONARDO GORDON on 12/05/2024 at 01:46 PM EDT Sign off status: Pending * Provider: Patience GORDON NP Date: 0 08/15/2024 Generated for Stan yao/Esther/Naun on: 0 12/05/2024 01:46 PM EDT
--- NOTE | 2024-12-05 12:59 | A.OFFVIS_ITS ---
Vital Signs 12/05/24 13:00 Height 5 ft 1 in Weight 171 lb BMI 32.3 BP 126/74 Blood Pressure Location Rt brachial Position Sitting Pulse 91 Pulse Source Pulse Oximeter Pulse Oximetry (%) 96 Oxygen Delivery Method Room Air Intake Visit Reasons: CPAP requalification Intake Note: Patient presents follow up TORRES requalification. Compliance in chart(87/90days, >=4hrs-22%, Average usage-2hr 49min, IPAP-18, EPAP-14, Med leaks-9.5, AHI-2.6) Trackmobile Operator Required: Yes Trackmobile Operator Language: Board Design Engineer Services: Trackmobile Operator Offered & Declined Trackmobile Operator Name: sister Information Interpreted: non-clinical & clinical Accompanied by: Sister Allergies No Known Allergies Allergy (Verified 12/05/24 13:05) HPI Comments Details: 79-yr-old Belarusian speaking female presents for a f/u visit of TORRES and Movement Disorder. Her sister is here and helps with history today. She uses her Bipap every night however she forgets to put it back on after her bathroom break. 10/20/2023, In-lab PSG: She was dx was severe TORRES AHI 51/hour, REM AHI 68.8/hour, O2 corina to 83%, SpO2 under 88%. 01/10/2024, in-lab PAP titration study, showed stabilization of breathing and oxygenation levels at BiPAP 18/14 cm H2O. She uses her Bipap every night however she forgets to put it back on after her bathroom break. She washes her mask, changes filters and fills reservoir with water daily. Her sister helps her put it on at bedtime, however at night she struggles to figure out how to put it back on her face. Memory is poor she forgets she has eaten a meal, and forgets words, has difficulty processing words. Gets lost in conversations. Needs constant redirection. Denies repeating words. Reads the bible and goes to rastafarian 3x per week. She is needs support with all her ADLs, is not very active, will walk from one room to another in the home. Mood is depressed, looks in the mirror and will stand there for a long time. She likes playing dominoes. She denies falls, has a walker and can climb stairs slowly. Uses her sister's arm to ambulate. She is on Mounjaro for 6 months and is unable to lose weight 171lbs. Has a good diet. She denies drooling, dysphagia, constipation, sleep difficulties, parasomnias, tremors. COUNTS INCLUDE 234 BEDS AT THE [facility] Medical History Diabetes Depression Family History Father Cancer Mother HTN (hypertension) Social History Alcohol intake: never Patient Tobacco Use Status: Never used Tobacco Physical Exam Vital Signs: Last Vital Signs Pulse 91 12/05/24 13:00 BP 126/74 12/05/24 13:00 Pulse Ox 96 12/05/24 13:00 Oxygen Delivery Method Room Air 12/05/24 13:00 BMI result Body Mass Index 32.3 Assessment & Plan Assessment & Plan (1) Severe obstructive sleep apnea: Code(s): G47.33 - Obstructive sleep apnea (adult) (pediatric) Category: Medical (2) Extrapyramidal and movement disorder: Comment: ?parkinsons Code(s): G25.9 - Extrapyramidal and movement disorder, unspecified Category: Medical (3) Forgetfulness: Comment: MRI Code(s): R68.89 - Other general symptoms and signs Category: Medical Plan Severe TORRES on bipap therapy, Continue BiPAP 18/14 cm H2O, as patient is having improved sleep with the use. Patient is encouraged to use BIPAP > than 4 hours for therapeutic / optimizing benefits and reducing risks associated with late onset of dementia. MMSE unable to complete today. MRI Cognitive impairement, memory is worse today, will send her for MRI. Continue Memantine ER 28mg po daily. Movement disorder symptoms, continue carbidopa levodopa 25-100 mg 1 tab BID. Patient encouraged to engage in regular cognitive and social stimulating activities, adult daycare program may be a good option. Patient encouraged to increase regular physical activity by walking 10min to 15min daily. f/u in 3 months for compliance and MRI results. Orders: Orders MR head/brain wo con 12/05/24 R68.89 - Other general symptoms and signs Medications: Changed From donepezil 10 mg PO QAM R68.89 - Other general symptoms and signs To donepezil 10 mg PO QAM 90 tabs 3RF cognitive decline 3 months MDD 10mg R68.89 - Other general symptoms and signs Refilled memantine 28 mg PO DAILY 30 ea 6RF 30 days Patient Instructions: Sleep Hygiene provided: set a scheduled bedtime and wake time to help regulate the circadian rhythm and balance the release of pituitary hormones. Sleep in a dark room, temperatures below 68 degrees, and no devices n bed. Limit caffeinated products 6 hours prior to bed, and limit fluids 2-4 hours prior to bed. Gentle night yoga, diffusing essential oils, and playing soft music can be relaxing. Coding Level of Care Code Est Pt Level 4 (94723) Diagnoses Severe obstructive sleep apnea G47.33 Extrapyramidal and movement disorder G25.9 Forgetfulness R68.89
[2024-12-05 13:00] VITALS: BP 126/74; PULSE 91; O2SAT 96; BMI 32.3
--- OUTSIDE RECORDS SUMMARY | 2024-12-05 13:47 | XMS_ITS | Patient Health Record ---
Author Organization [facility] Address [address] [place] [address] Care Team Providers Care Envelope Stamping Machine Operator Name Role Phone Paula, Haydenmargie Primary Care Provider Lul Cook Unavailable [phone] Allergies No Known Allergies Reason For Referral [...] Problem Acquired hammer toe of right foot ([id number] 105) Other hammer toe(s) (acquired), right foot (M20.41) Active confirmed Response to treatment,I mprovement Problem Type 2 diabetes mellitus with peripheral angiopathy (002978095) Type 2 diabetes mellitus with diabetic peripheral angiopathy without gangrene (E11.51) Active confirmed Q7(A), Q8(2B), Q9(1B,2C) Problem Acquired hammer toe of left foot (3412172763599 103) Other hammer toe(s) (acquired), left foot (M20.42) Active confirmed Response to treatment,I mprovement Vital Signs Height 5ft 2in in 07/29/2024 Weight 165 lbs 07/29/2024 BMI 30.18 kg/m2 07/29/2024 Procedures Procedure Date Ordered Date Performed Result Body Sit e 17889-MCAKKDX NAIL, 6 OR MORE 07/29/2024 N/A 05969-Lzvexoes Plate 07/29/2024 N/A 65040-ECBB SKIN LESIONS, OVER 4 07/29/2024 N/A Encounters Encounter Location Date Provider Diagnosis [facility] [address] 07/29/2024 Lul Ross Other hammer toe(s) (acquired), right foot M20.41 ; Other hammer toe(s) (acquired), left foot M20.42 ; Type 2 diabetes mellitus with diabetic peripheral angiopathy without gangrene E11.51 ; Tinea unguium B35.1 ; Pain in right toe(s) M79.674 ; Pain in left toe(s) M79.675 and Ingrown nail L60.[address] [facility] [address] 10/28/2024 Lul Ross Assessments Encounter Date Diagnosis [...] X ray : Foot, left 3V 02/21/2022 41546-CVHSAVM NAIL, 6 OR MORE 05/25/2022 64060-XLJPBSL NAIL, 6 OR MORE 01/12/2022 35341-RMWNXJN NAIL, 6 OR MORE 02/17/2021 15489-PSQGTDR NAIL, 6 OR MORE 09/15/2021 34276-RRDYSRK NAIL, 6 OR MORE 01/31/2019 37098-DUQPWJU NAIL, 6 OR MORE 05/02/2019 07417-WACKWAD NAIL, 6 OR MORE 11/27/2019 06913-SFOXBSD NAIL, 6 OR MORE 02/26/2020 10668-CSJHGTO NAIL, 6 OR MORE 05/27/2020 48644-KWXWLYI NAIL, 6 OR MORE 08/26/2020 62048-QIENXJX NAIL, 6 OR MORE 11/28/2022 11399-QAUHGGR NAIL, 6 OR MORE 02/22/2023 19490-ZWIJXBK NAIL, 6 OR MORE 07/17/2023 18926-ROLGXUC NAIL, 6 OR MORE 10/16/2023 65591-SPONFKG NAIL, 6 OR MORE 07/29/2024 28011-Smqg Destruction, 1-14 11/28/2022 34317-Jpha Destruction, 1-14 10/16/2023 53531-Fxsy Destruction, 1-14 07/17/2023 13242-Flge Destruction, 1-14 02/22/2023 72816-Rldr Destruction, 1-14 08/26/2020 37745-Csah Destruction, 1-14 05/27/2020 83451-Auht Destruction, 1-14 02/26/2020 14331-Crne Destruction, 1-14 11/27/2019 43463-Qxgo Destruction, 1-14 09/15/2021 31265-Noti Destruction, 1-14 02/17/2021 53287-Sjkg Destruction, 1-14 01/12/2022 52255-Xwzv Destruction, 1-14 05/25/2022 42771-Qwojvyle Plate 05/25/2022 52071-Wkfuxzhb Plate 01/12/2022 04384-Nogvdviv Plate 02/17/2021 48336-Xgmxqumt Plate 09/15/2021 88629-Yfcczhiz Plate 11/27/2019 81381-Exujqokc Plate 02/26/2020 98725-Yyjomktf Plate 05/27/2020 03948-Yhxnlaur Plate 08/26/2020 48367-Auzkiaff Plate 02/22/2023 30379-Hobfmnxf Plate 11/28/2022 89044-Vxtrqzyk Plate 07/17/2023 05045-Ciwtskpo Plate 10/16/2023 64197-Ftaucvzg Plate 07/29/2024 80736-Ujvytymu Plate Each Additional 88394-Bwvbqplu Plate Each Additional 75489-Pzqeraym Plate Each Additional 10/2022 12597-Ksprcnrn Plate Each Additional 04/2022 96294-Curybkrg Plate Each Additional 08/2020 28694-Xhtqsmid Plate Each Additional 06/2020 69172-Yogbnegg Plate Each Additional 07/2019 14433-Ydngahtp Plate Each Additional 08/2019 77273-Npnesqnz Plate Each Additional 78340-Qthdogmo Plate Each Additional 29280-Ancfwqmv Plate Each Additional 13762-Olsxqtnq Plate Each Additional 04/2022 08488-CIWVYPJ SKIN/TISSUE 02/21/2022 32058 I&D ABSCESS- SIMPLE,SINGLE 022 71153-WNMT SKIN LESIONS, OVER 4 02/23/20 23 50869-HTQS SKIN LESIONS, OVER 4 07/17/19 24 32922-YDTK SKIN LESIONS, OVER 4 10/16/19 24 75494-ZFKA SKIN LESIONS, OVER 4 07/30/19 58828-NNGV SKIN LESIONS, OVER 4 11/29/19 23 28982-ZQYU SKIN LESIONS, OVER 4 05/25/19 74053-ANFZ SKIN LESIONS, OVER 4 01/13/20 66239-XPMR SKIN LESIONS, OVER 4 02/18/20 21 43462-PPKV SKIN LESIONS, OVER 4 09/16/19 46129-IBRZ SKIN LESIONS, OVER 4 05/27/19 29528-PDPP SKIN LESIONS, OVER 4 08/27/19 94547-ODSB SKIN LESIONS, 2 TO 4 02/26/20 Next Appt Details Provider Name:Lul Pace Vandana , 01/20/2025 03:00:00 PM, [address] [facility], [address], [place], [address], Insurance Providers Payer Name Payer Address Payer Phone Subscriber Number Group Number Insured Name Patient Relationship to Insured Coverage Start Date Coverage End Date [facility] SCO Claims [address] [place] [id number] April Camacho Self - patient is the insured Medical (General) History Medical History History ICD Code Alzheimers disease Depression Diabetic lots of cramps Surgical History Surgery Date(Month/Year) gall bladder 1987 Hospitalization History Reason Date(Month/Year) [facility] Const[facility] 02/13/20
--- OUTSIDE RECORDS SUMMARY | 2024-12-05 13:47 | XMS_ITS | Clinical Summary ---
Author Organization [address] [facility] Address [address] [place] [address] Phone Care Team Providers Care Deputy Head Name Role Phone Gavi Paula MD Primary Care Provider [phone] Surgical History Surgery Date Site/Laterality Comments SHOULDER SURGERY Right PROCEDURE: HISTORICAL SHOULDER SURGERY CHOLECYSTECTOMY PROCEDURE: [place] CHOLECYSTECTOMY COLONOSCOPY PROCEDURE: HISTORICAL COLONOSCOPY Medical History [...] 10/23/1966 Zoster Vaccines (1 of 2) 10/23/1997 Falls Risk Assessment 03/27/2022 Hepatitis C Screening 03/27/2022 Osteoporosis Screening (Bone Density Screening) 03/27/2022 Social Influencers of Health Screening 03/27/2022 Diabetes: Annual Urine Albumin-Creatinine Ratio (uACR) 04/07/2022 RSV Immunization Adult Patients (1 - 1-dose 75+ series) 10/23/2022 COVID-19 Vaccine (2 - season) 2023 03/16/2021 Depression Screening 04/24/2024 Influenza Vaccine (#1) 2024 2, 01/26/2021, 02/22/2020 [...] Procedure Name Priority Date/Time Associated Diagnosis Comments COMPREHENSIVE METABOLIC PANEL Routine 08/13/2024 8:09 AM EDT Diabetic complication (CMS/HCC V24, CMS/HCC V28) Hyperlipemia Myxedema heart disease Avitaminosis D HEMOGLOBIN A1C Routine 08/13/2024 8:09 AM EDT Diabetic complication (CMS/HCC V24, CMS/HCC V28) Hyperlipemia Myxedema heart disease Avitaminosis D LIPID PANEL WITH REFLEX TO DIRECT LDL Routine 08/13/2024 8:09 AM EDT Diabetic complication (CMS/HCC V24, [facility]/HCC V28) Hyperlipemia Myxedema heart disease Avitaminosis D [facility] SCREENING DIGITAL Routine 06/21/2023 4:40 PM EST Encounter for screening mammogram for malignant neoplasm of breast from Last 3 Months or Most Recently Relevant to Health Maintenance Results * Lipid panel with reflex to direct LDL (08/13/2024 8:09 AM EDT) Cholesterol 160 0 - 200 mg/dL LAB CHEMISTRY METHOD 08/13/2024 10:10 AM EDT [facility] Triglycerides 131 0 - 150 mg/dL LAB CHEMISTRY METHOD 08/13/2024 10:10 AM [facility] HDL 69 >=40 mg/dL LAB CHEMISTRY METHOD 08/13/2024 10:10 AM EDT [facility] LDL Calculated 65 0 - 100 mg/dL LAB CHEMISTRY METHOD 08/13/2024 10:10 AM EDT [facility] VLDL Cholesterol Rogelio 26.2 mg/dL LAB CHEMISTRY METHOD 08/13/2024 10:10 AM T [facility] Non HDL Chol. (LDL+VLDL) 91 <145 mg/dL LAB CHEMISTRY METHOD 08/13/2024 10:10 AM [facility] Chol/HDL Ratio 2.3 0.0 - 4.4 LAB CHEMISTRY METHOD 08/13/2024 10:10 AM T [facility] Blood Venous blood specimen / Unknown Venipuncture / Unknown 08/13/2024 8:09 AM EDT 08/13/2024 9:10 AM EDT us Ronni Bradley [employer] LAB BLOOD ORDERABLES Final Re sult [facility] [address] [place] [address], [place] [phone] * (ABNORMAL) Hemoglobin A1c (08/13/2024 8:09 AM EDT) Hemoglobin A1C 6.8(H) <6.5 % LAB CHEMISTRY METHOD 08/13/2024 11:45 AM T [facility] Mean Bld Glu Estim. 148 mg/dL LAB CHEMISTRY METHOD 08/13/2024 11:45 AM [facility] Blood Venous blood specimen / Unknown Venipuncture / Unknown 08/13/2024 8:09 AM EDT 08/13/2024 9:11 AM EDT us Ronni Bradley [employer] LAB BLOOD ORDERABLES Final Re sult [facility] [address] [place] [address], * (ABNORMAL) Comprehensive metabolic panel (08/13/2024 8:09 AM EDT) [facility] Sodium 138 133 - 145 mmol/L LAB CHEMISTRY METHOD 08/13/2024 10:10 AM [facility] Potassium 4.4 3.5 - 5.5 mmol/L LAB CHEMISTRY METHOD 08/13/2024 10:10 AM [facility] Chloride 105 96 - 110 mmol/L LAB CHEMISTRY METHOD 08/13/2024 10:10 AM [facility] CO2 27 21 - 32 mmol/L LAB CHEMISTRY METHOD 08/13/2024 10:10 AM [facility] Anion Gap 6 3 - 11 LAB CHEMISTRY METHOD 08/13/2024 10:10 AM [facility] Glucose 108(H) 70 - 100 mg/dL LAB CHEMISTRY METHOD 08/13/2024 10:10 AM [facility] BUN 19 5 - 25 mg/dL LAB CHEMISTRY METHOD 08/13/2024 10:10 AM [facility] Creatinine 0.84 0.50 - 1.10 mg/dL LAB CHEMISTRY METHOD 08/13/2024 10:10 AM [facility] eGFR 72 >=60 mL/min/1. 73m2 LAB CHEMISTRY METHOD 08/13/2024 10:10 AM [facility] Comment:Calculation based on the Chronic Kidney Disease Epidemiology Collaboration (CKD-EPI) equation refit without adjustment for race. BUN/Creatinine Ratio 22.6 LAB CHEMISTRY METHOD 08/13/2024 10:10 AM [facility] Calcium 9.4 8.5 - 10.5 mg/dL LAB CHEMISTRY METHOD 08/13/2024 10:10 AM [facility] AST (SGOT) 17 10 - 42 unit/L LAB CHEMISTRY METHOD 08/13/2024 10:10 AM [facility] ALT (SGPT) 32 10 - 60 unit/L LAB CHEMISTRY METHOD 08/13/2024 10:10 AM [facility] Alkaline Phosphatase 91 42 - 121 unit/L LAB CHEMISTRY METHOD 08/13/2024 10:10 AM [facility] Total Protein 7.4 6.0 - 8.0 g/dL LAB CHEMISTRY METHOD 08/13/2024 10:10 AM [facility] Albumin 3.9 3.2 - 5.0 g/dL LAB CHEMISTRY METHOD 08/13/2024 10:10 AM [facility] Total Bilirubin 0.3 0.0 - 1.4 mg/dL LAB CHEMISTRY METHOD 08/13/2024 10:10 AM [facility] Blood Venous blood specimen / Unknown Venipuncture / Unknown 08/13/2024 8:09 AM EDT 08/13/2024 9:10 AM EDT us Ronni Bradley NP LAB BLOOD ORDERABLES Final Re sult [facility] LAB [address] [place] [address], * [facility] SCREENING DIGITAL (06/21/2023 4:40 PM EST) Anatomical Region Laterality Modality Mammography 06/21/2023 3:37 PM EST Narrative 06/21/2023 4:40 PM EST [facility] Diagnostic Imaging Department [address] [place] [address] Patient: APRIL EJAN./Age/Sex: 1945 - 77 - F Unit#: [id number] Location/Status: [facility] CLI Mnemonic/Ordering Site: [facility] Ordering Physician: GAVI PAULA MD [facility] Screening Digital - 06/21/23 - 1621 Report Status:Signed EXAM: [facility] Screening Digital EXAM DATE AND TIME: 06/21/2023 4:22 PM HISTORY: Annual screening COMPARISON: Multiple exams dating back to 2019 TECHNIQUE: Bilateral digital breast tomosynthesis was performed in the CC and MLO projections. Computer aided detection with [employer] 3D 3.1 was employed. TISSUE DENSITY: b. [...] screening mammogram BILATERAL in 1 year. 3341F, 7097F Dictating Physician: COURTNEY CHERRY MD Electronically Signed by: COURTNEY CHERRY MD Dic Date/Time: 06/21/23 1639 Sign date/Time: 06/21/23 1640 Procedure Note Courtney Cherry MD - 12/11/2023 [facility] Diagnostic Imaging Department [address] [place], [place] [id number] Patient: APRIL JEAN /Age/Sex: 1945 - 77 -F Unit#: [id number] Location/Status: [facility] CLI Mnemonic/Ordering Site: [facility] Ordering Physician: GAVI PAULA MD [facility] Screening Digital - 06/21/23 - 1621 Report Status:Signed EXAM: [facility] Screening Digital EXAM DATE AND TIME: 06/21/2023 4:22 PM HISTORY: Annual screening COMPARISON: Multiple exams dating back to 2019 TECHNIQUE: Bilateral digital breast tomosynthesis was performed in the CCand MLO projections. Computer aided detection with [employer] 3D 3.1was employed. TISSUE DENSITY: b. There [...] screening mammogram BILATERAL in 1 year. 3341F, 7025F Dictating Physician: COURTNEY CHERRY MD Electronically Signed by: COURTNEY CHERRY MD Dic Date/Time: 06/21/23 1639 Sign date/Time: 06/21/23 1640 Gavi Paula MD IMG BI PROCEDURES Final Result from Last 3 Months or Most Recently Relevant to Health Maintenance Insurance [facility] Member Subscriber Plan / Payer (Ef fective 2018-Present) Name:April Jean Relation to Subscriber:Self Name:April Jean Payer ID:[id number] Group ID:[id number] Type:Not on file Address: [place] [address] [place] [address] Care Teams Deputy Head Relationship Specialty Start Date End Date Gavi Paula MD [address] [place] [id number] PCP - General Internal Medicine 08/13/24
== END 2024-12-05 13:54 | disposition home or self-care (01) ==
LOC: HO.HSMS 12:57
PROVIDERS: PCP Student in an Organized Health Care Education/Training Program; Visit Provider Physician Assistant Medical
DX: G47.33 Obstructive sleep apnea (adult) (pediatric) (principal); G25.9 Extrapyramidal and movement disorder, unspecified; R68.89 Other general symptoms and signs
CPT/HCPCS: 99214

== ENCOUNTER → 2024-12-05 12:57 | Outpatient (BNVA) | payer OTHER, SELFPAY | PROVIDERS: PCP Student in an Organized Health Care Education/Training Program; Visit Provider Physician Assistant Medical | DX: G47.33 Obstructive sleep apnea (adult) (pediatric) (principal); G25.9 Extrapyramidal and movement disorder, unspecified; G31.84 Mild cognitive impairment of uncertain or unknown etiology | CPT/HCPCS: 99212 ==

== ENCOUNTER → 2024-12-24 20:30 | Outpatient (BNV) | payer OTHER, SELFPAY | PROVIDERS: PCP Student in an Organized Health Care Education/Training Program; Visit Provider Psychiatry & Neurology Neurology | DX: G47.33 Obstructive sleep apnea (adult) (pediatric) (principal) | CPT/HCPCS: 95810 ==

== ENCOUNTER → 2024-12-24 20:30 | Outpatient (REF) | payer OTHER, SELFPAY ==
--- OUTSIDE RECORDS SUMMARY | 2023-09-19 07:30 | XMS_ITS ---
Author Organization [facility] [address] Address [address] [place] [address] Care Team Providers Care Hair Salon Manager Name Role Phone GAVI DE LOS SANTOS Unavailable [phone] MICKISHAREE Busch Unavailable [phone] Medications Medication SIG (Take, Route, Frequency, Duration) Notes Start Date End Date Status CeleBREX 200 MG 1 capsule with food Orally Once a day; Duration: 14 days 05/10/2022 Active Vitamin D3 125 MCG (5000 UT) 1 capsule Orally Once a day; Duration: 90 days Active Folic Acid 1 MG 1 tablet Orally Once a day; Duration: 90 days Active Vitamin B12 100 MCG 1 tablet Orally Once a day; Duration: 90 days Active Farxiga 10 MG 1 tablet Orally Once a day; Duration: 90 days Active Atorvastatin Calcium 20 MG TAKE 1 TABLET BY MOUTH EVERY DAY Orally Once a day; Duration: 90 days Active Linzess 145 MCG 1 capsule at least 3 0 minutes before the first meal of the day on an empty stomach Orally Once a day; Duration: 30 days Active Mounjaro 5 MG/0.5ML 5mg Subcutaneous wee kly; Duration: 30 days Active Clotrimazole 1 % 1 application Hassock Maker ally Twice a day; Duration: 30 days Active metFORMIN HCl 500 MG TAKE 1 TABLET BY MO UTH TWICE DAILY WITH A MEAL; Duration: 90 Active FreeStyle Test - as directed dxe11.9 In Vitro twice daily; Duration: 30 days 04/11/2023 Active FreeStyle Lancets - USE TWICE DAILY dx e 11.9; Duration: 30 days Active FreeStyle Lite - as directed in vitro dx e11.9 twice daily; Duration: 30 days Active Mounjaro 2.5 MG/0.5ML 2.5mg Subcutaneous weekly; Duration: 30 days 01/25/2023 Active Encounters Encounter Location Date Provider Diagnosis [facility] [address] [address] 09/19/2023 SHAREE GORDON Essential (primary) hypertension I10 ; Type 2 diabetes mellitus with complication, unspecified whether chcf insulin use E11.8 ; Hyperlipidemia, unspecified E78.5 [...] high risk for cardiovascular events including stroke, [place] As well as complications from infections, therefore immunizations are important The best way to monitor kidney function is through blood and urine test You should have these test done periodically If it is best if you complete the test a week or 2 before your visit with your primary care or network control operators supervisor So that the most recent data can [...] software and direct typing Please excuse inadvertent amusement ride operator or typing errors, or uncorrected word substitutions Although every attempt has been made by the provider to proofread this document, occasional misspellings and typographical errors may still be present Due to the previous pandemic, and the use of personal protective equipment (PPE) This may decrease voice recognition accuracy Inadvertent amusement ride operator errors may occur 09/19/2023 Type 2 diabetes mellitus with complication, unspecified whether terminal superintendent insulin use (ICD-10 - E11.8) Acute Concerns/Problem [...] high risk for cardiovascular events including stroke, [place] As well as complications from infections, therefore immunizations are important The best way to monitor kidney function is through blood and urine test You should have these test done periodically If it is best if you complete the test a week or 2 before your visit with your primary care or network control operators supervisor So that the most recent data can [...] software and direct typing Please excuse inadvertent amusement ride operator or typing errors, or uncorrected word substitutions Although every attempt has been made by the provider to proofread this document, occasional misspellings and typographical errors may still be present Due to the previous pandemic, and the use of personal protective equipment (PPE) This may decrease voice recognition accuracy Inadvertent amusement ride operator errors may occur 09/19/2023 Hyperlipidemia, unspecified (ICD-10 [...] high risk for cardiovascular events including stroke, [place] As well as complications from infections, therefore immunizations are important The best way to monitor kidney function is through blood and urine test You should have these test done periodically If it is best if you complete the test a week or 2 before your visit with your primary care or network control operators supervisor So that the most recent data can [...] software and direct typing Please excuse inadvertent amusement ride operator or typing errors, or uncorrected word substitutions Although every attempt has been made by the provider to proofread this document, occasional misspellings and typographical errors may still be present Due to the previous pandemic, and the use of personal protective equipment (PPE) This may decrease voice recognition accuracy Inadvertent amusement ride operator errors may occur 09/19/2023 Heart failure, unspecified [...] high risk for cardiovascular events including stroke, [place] As well as complications from infections, therefore immunizations are important The best way to monitor kidney function is through blood and urine test You should have these test done periodically If it is best if you complete the test a week or 2 before your visit with your primary care or network control operators supervisor So that the most recent data can [...] software and direct typing Please excuse inadvertent amusement ride operator or typing errors, or uncorrected word substitutions Although every attempt has been made by the provider to proofread this document, occasional misspellings and typographical errors may still be present Due to the previous pandemic, and the use of personal protective equipment (PPE) This may decrease voice recognition accuracy Inadvertent amusement ride operator errors may occur 09/19/2023 Stage 3a chronic [...] high risk for cardiovascular events including stroke, [place] As well as complications from infections, therefore immunizations are important The best way to monitor kidney function is through blood and urine test You should have these test done periodically If it is best if you complete the test a week or 2 before your visit with your primary care or network control operators supervisor So that the most recent data can [...] software and direct typing Please excuse inadvertent amusement ride operator or typing errors, or uncorrected word substitutions Although every attempt has been made by the provider to proofread this document, occasional misspellings and typographical errors may still be present Due to the previous pandemic, and the use of personal protective equipment (PPE) This may decrease voice recognition accuracy Inadvertent amusement ride operator errors may occur 09/19/2023 Hypothyroidism, unspecified type [...] high risk for cardiovascular events including stroke, [place] As well as complications from infections, therefore immunizations are important The best way to monitor kidney function is through blood and urine test You should have these test done periodically If it is best if you complete the test a week or 2 before your visit with your primary care or network control operators supervisor So that the most recent data can [...] software and direct typing Please excuse inadvertent amusement ride operator or typing errors, or uncorrected word substitutions Although every attempt has been made by the provider to proofread this document, occasional misspellings and typographical errors may still be present Due to the previous pandemic, and the use of personal protective equipment (PPE) This may decrease voice recognition accuracy Inadvertent amusement ride operator errors may occur 09/19/2023 Vitamin D deficiency, [...] high risk for cardiovascular events including stroke, [place] As well as complications from infections, therefore immunizations are important The best way to monitor kidney function is through blood and urine test You should have these test done periodically If it is best if you complete the test a week or 2 before your visit with your primary care or network control operators supervisor So that the most recent data can [...] software and direct typing Please excuse inadvertent amusement ride operator or typing errors, or uncorrected word substitutions Although every attempt has been made by the provider to proofread this document, occasional misspellings and typographical errors may still be present Due to the previous pandemic, and the use of personal protective equipment (PPE) This may decrease voice recognition accuracy Inadvertent amusement ride operator errors may occur 09/19/2023 Constipation (ICD-10 - [...] high risk for cardiovascular events including stroke, [place] As well as complications from infections, therefore immunizations are important The best way to monitor kidney function is through blood and urine test You should have these test done periodically If it is best if you complete the test a week or 2 before your visit with your primary care or network control operators supervisor So that the most recent data can [...] software and direct typing Please excuse inadvertent amusement ride operator or typing errors, or uncorrected word substitutions Although every attempt has been made by the provider to proofread this document, occasional misspellings and typographical errors may still be present Due to the previous pandemic, and the use of personal protective equipment (PPE) This may decrease voice recognition accuracy Inadvertent amusement ride operator errors may occur Plan Of Treatment Medication Medication Name Sig Start Date Stop Date Notes Atorvastatin Calcium 20 MG TAKE 1 TABLET BY MOUTH EVERY DAY Orally Once a day; Duration: 90 days Linzess 145 MCG 1 capsule at least 3 0 minutes before the first meal of the day on an empty stomach Orally Once a day; Duration: 30 days Mounjaro 5 MG/0.5ML 5mg Subcutaneous webari rubi; Duration: 30 days Next Appt Details Provider Name:SHAREE BORBESS, 03/31/2025 10:30:00 AM, [address] [facility], [facility], [place], [address], Progress Notes * JEANNETTE DECKER DDOB :1945 (79 yo F)Acc No.[id number]:09/19/2023 Progress Notes Patient: JEANNETTE LY Provider: Patience GORDON NP :1945 A ge:77 Y S ex:Female Date:09/19/2023 Address:[address] [place], [place] [id number] Subjective: * Chief Complaints: * * HPI: C onstitutional: Patient is here [...] by her sister Jenny, is with her AQUACULTURE PROGRAM DIRECTOR, home eval done, GSSS for potential hours, now gets 11 hrs weekly Her health care proxy is her sister, (Oleksandr) who takes care of her at home Healthcare proxy and MOLST filed other Past history that includes diabetes, hyperlipidemia, mild dementia recently evaluated for cardiac evaluation by window maker Ash Apparently patient was in the [place] and was noted to have apparent PVD and CHF Because of that she was started on spironolactone, Plavix and anticoagulation There are obviously no records available from that medical evaluation and then she returned to [facility] In these medications were discontinued by PCP She does have that some claudication bilaterally with walks she otherwise denies any shortness of breath rotations or syncope Cardiology is Monitoring and ordering lower extremity ultrasounds to assess circulation as well as echocardiograms She recently saw her catholic priest treated her for infection of the left [...] 50% Acute hospitalizations Patient was evaluated at [facility] on December 26 2022 Past history that [...] the ED back in april 2022 s/p [facility]. fall Patients daughter reports they think she was dizzy in the morning. Was then found to have sleep apnea. Doing much better on CPAP she was admitted on September 25, 2021, and discharged on September 28, 2021 at [facility] Who presented to the emergency department with [...] 01/2023 DM Opho: 07/2023 DM Podiatry: 07/2023 [facility]. * ROS: A ll Other Systems: Review of Systems (ROS) A ll others negative except those mentioned in HPI. * Medical History: * Medications: T aking Mounjaro 5 MG/0.5ML Solution Pen-injector 5mg Subcutaneous weekly , Taking Clotrimazole 1 % Cream 1 application Externally Twice a day , Taking Vitamin B12 100 MCG Tablet 1 tablet Orally Once a day , Taking Folic Acid 1 MG Tablet 1 tablet Orally Once a day , Taking Vitamin D3 125 MCG (5000 UT) Capsule 1 capsule Orally Once a day , Taking CeleBREX 200 MG Capsule 1 capsule with food Orally Once a day , Taking Farxiga 10 MG Tablet 1 tablet Orally Once a day , Taking Mounjaro 2.5 MG/0.5ML Solution Pen-injector 2.5mg Subcutaneous weekly , Taking FreeStyle Lite - Device as directed in vitro dx e11.9 twice daily , Taking FreeStyle Lancets - Miscellaneous USE TWICE DAILY dx e11.9 , Taking FreeStyle Test - Strip as directed dxe11.9 In Vitro twice daily , Taking metFORMIN HCl 500 MG Tablet TAKE 1 TABLET BY MOUTH TWICE DAILY WITH A MEAL , Taking Linzess 145 MCG Capsule 1 capsule at least 30 minutes before the first meal of the day on an empty stomach Orally Once a day , Taking Atorvastatin Calcium 20 MG Tablet TAKE 1 TABLET BY MOUTH EVERY DAY Orally Once a day Objective: * Vitals: * Examination: G eneral Examination: GENERAL APPEARANCE: P t is seated in exam room in chair, in no acute distress, well developed, well nourished. H EAD: n ormocephalic, atraumatic. E YES: p upils equal, round, reactive to light and accommodation. E ARS: n ormal. O RAL CAVITY: m [place] moist. T HROAT: c lear. N CARLITA/THYROID: n carlita supple, full range of motion, no cervical lymphadenopathy. S KIN: n o suspicious lesions, warm and dry. H EART: n o murmurs, regular rate and rhythm, S1, S2 normal. L UNGS: c lear to auscultation bilaterally. A BDOMEN: n ormal, bowel sounds present, soft, nondistended. E XTREMITIES: n o clubbing, cyanosis, or edema. N EUROLOGIC: n onfocal, motor strength normal upper and lower extremities, sensory exam intact. P SYCH: Anna busch is alert, but does not speak throughout interview, she follows all commands and is cooperative with exam.. Assessment: * Assessment: 1. E ssential (primary) hypertension - I10 2 . T ype 2 diabetes mellitus with complication, unspecified whether chcf insulin use - E11.8 3 . H [...] high risk for cardiovascular events including stroke, [place] As well as complications from infections, therefore immunizations are important The best way to monitor kidney function is through blood and urine test You should have these test done periodically If it is best if you complete the test a week or 2 before your visit with your primary care or network control operators supervisor So that the most recent data can [...] software and direct typing Please excuse inadvertent amusement ride operator or typing errors, or uncorrected word substitutions Although every attempt has been made by the provider to proofread this document, occasional misspellings and typographical errors may still be present Due to the previous pandemic, and the use of personal protective equipment (PPE) This may decrease voice recognition accuracy Inadvertent amusement ride operator errors may occur. Plan: * Treatment: * Procedure Codes: 9 9199 NO SHOW OFFICE VISIT * Images: Billing Information: * Visit Code: * Procedure Codes: 66440 NO SHOW OFFICE VISIT. Care Plan Details* * Electronic signature of LEONARDO SWEETNarayan on 12/24/2024 at 09:24 PM EDT Sign off status: Pending * Provider: Patience GORDON NP Date: 0 09/19/2023 Generated for Stan Liu/Naun on: 0 12/24/2024 09:24 PM EDT History and Physical Notes * HPI (History [...] by her sister Jenny, is with her AQUACULTURE PROGRAM DIRECTOR, home eval done, GSSS for potential hours, now gets 11 hrs weekly Her health care proxy is her sister, (Oleksandr) who takes care of her at home Healthcare proxy and MOLST filed other Past history that includes diabetes, hyperlipidemia, mild dementia recently evaluated for cardiac evaluation by window maker Ash Apparently patient was in the [place] and was noted to have apparent PVD and CHF Because of that she was started on spironolactone, Plavix and anticoagulation There are obviously no records available from that medical evaluation and then she returned to [facility] In these medications were discontinued by PCP She does have that some claudication bilaterally with walks she otherwise denies any shortness of breath rotations or syncope Cardiology is Monitoring and ordering lower extremity ultrasounds to assess circulation as well as echocardiograms She recently saw her catholic priest treated her for infection of the left [...] 50% Acute hospitalizations Patient was evaluated at [facility] on December 26 2022 Past history that [...] the ED back in april 2022 s/p [facility]. fall Patients daughter reports they think she was dizzy in the morning. Was then found to have sleep apnea. Doing much better on CPAP she was admitted on September 25, 2021, and discharged on September 28, 2021 at [facility] Who presented to the emergency department with [...] 01/2023 DM Opho: 07/2023 DM Podiatry: 07/2023 [facility] Examination Category Sub-Category Detail Notes Category [...]
--- OUTSIDE RECORDS SUMMARY | 2024-08-15 07:00 | XMS_ITS ---
Author Organization [facility] [address] Address [address] [place] [address] Care Team Providers Care Service Cleaner Name Role Phone GAVI DE LOS SANTOS Unavailable [phone] SHAREE GORDON Unavailable [phone] REASON FOR VISIT labs Encounters Encounter Location Date Provider Diagnosis [facility] [address] [address] 08/15/2024 SHAREE GORDON Plan Of Treatment Next Appt Details Provider Name:SHAREE GORDON, 03/31/2025 10:30:00 AM, [address], [phone], Progress Notes * JEANNETTE DECKER DDOB :1945 (79 yo F)Acc No.[id number]:08/15/2024 Progress Note Patient: Bill CHO JEANNETTE SANTANA Provider: Patience GORDON NP :1945 A ge:78 Y S ex:Female Date:08/15/2024 Address:[address] [place] [address] Subjective: * Chief Complaints: * 1 . Labs. * Medical History: Objective: * Vitals: Assessment: Plan: * Treatment: * Images: Billing Information: * Visit Code: * Procedure Codes: Care Plan Details* * Electronic signature of LEONARDO GORDON on 12/24/2024 at 09:24 PM EDT Sign off status: Pending * Provider: Patience GORDON NP Date: 0 08/15/2024 Generated for Stan yao/Esther/Naun on: 0 12/24/2024 09:24 PM EDT
--- OUTSIDE RECORDS SUMMARY | 2024-10-28 11:30 | XMS_ITS ---
Author Organization [facility] Address [address] [place] [address] Care Team Providers Care Cooling Machine Operator Name Role Phone Kosta Paula Primary Care Provider Unavailabl Lul Aggarwal Unavailable [phone] Encounters Encounter Location Date Provider Diagnosis [address] [address] 10/28/2024 Lul Ross Plan Of Treatment Next Appt Details Provider Name:Lul Ross , 01/20/2025 03:00:00 PM, [address] [place] [address], [phone], Progress Notes * April LAWSONDOB: (79 yo F)Acc No.[id number]:10/28/2024 Progress Note Patient: April QUEVEDO Provider: Migue Ross DPM :1945 A ge:79 Y S ex:Female Date:10/28/2024 Address:[address] [place] [phone] Pcp:Kosta Paula Subjective: * Chief Complaints: * [...] 0 10/28/2024 Generated for Stan yao/Esther/Naun on: 0 12/24/2024 09:25 PM EDT
--- OUTSIDE RECORDS SUMMARY | 2024-12-24 21:25 | XMS_ITS | Clinical Summary ---
Author Organization [address] [facility] Address [address] [place] [address] Phone Care Team Providers Care Tanning Wheel Filler Name Role Phone Gavi Paula MD Primary Care Provider [phone] Surgical History Surgery Date Site/Laterality Comments SHOULDER SURGERY Right PROCEDURE: HISTORICAL SHOULDER SURGERY CHOLECYSTECTOMY PROCEDURE: IN CHOLECYSTECTOMY COLONOSCOPY PROCEDURE: HISTORICAL COLONOSCOPY Medical History [...] Patients (1 - 1-dose 75+ series) 10/23/2022 Depression Screening 04/24/2024 COVID-19 Vaccine ( season) 2024 03/16/2021 Influenza Vaccine (#1) 2024 2, 01/26/2021, [...] 8:09 AM EDT Diabetic complication (CMS/HCC V24, [facility]/HCC V28) Hyperlipemia Myxedema heart disease Avitaminosis D [facility] SCREENING DIGITAL Routine 06/21/2023 4:40 PM EST Encounter for screening mammogram for malignant neoplasm of breast from Last 3 Months or Most Recently Relevant to Health Maintenance Results * Lipid panel with reflex to direct LDL (08/13/2024 8:09 AM EDT) Cholesterol 160 0 - 200 mg/dL LAB CHEMISTRY METHOD 08/13/2024 10:10 AM EDT [facility] Triglycerides 131 0 - 150 mg/dL LAB CHEMISTRY METHOD 08/13/2024 10:10 AM [facility] HDL 69 >=40 mg/dL LAB CHEMISTRY METHOD 08/13/2024 10:10 AM EDT [facility] LDL Calculated 65 0 - 100 mg/dL LAB CHEMISTRY METHOD 08/13/2024 10:10 AM EDT [facility] VLDL Cholesterol Rogelio 26.2 mg/dL LAB CHEMISTRY METHOD 08/13/2024 10:10 AM T [facility] Non HDL Chol. (LDL+VLDL) 91 <145 mg/dL LAB CHEMISTRY METHOD 08/13/2024 10:10 AM [facility] Chol/HDL Ratio 2.3 0.0 - 4.4 LAB CHEMISTRY METHOD 08/13/2024 10:10 AM T [facility] Blood Venous blood specimen / Unknown Venipuncture / Unknown 08/13/2024 8:09 AM EDT 08/13/2024 9:10 AM EDT us Ronni Bradley BUSINESS INFORMATION CONSULTANT LAB BLOOD ORDERABLES Final Re sult [facility] [address] [place] [address], [place] [phone] * (ABNORMAL) Hemoglobin A1c (08/13/2024 8:09 AM EDT) Hemoglobin A1C 6.8(H) <6.5 % LAB CHEMISTRY METHOD 08/13/2024 11:45 AM T [facility] Mean Bld Glu Estim. 148 mg/dL LAB CHEMISTRY METHOD 08/13/2024 11:45 AM [facility] Blood Venous blood specimen / Unknown Venipuncture / Unknown 08/13/2024 8:09 AM EDT 08/13/2024 9:11 AM EDT us Ronni Bradley BUSINESS INFORMATION CONSULTANT LAB BLOOD ORDERABLES Final Re sult [facility] [address] [place] [address], * (ABNORMAL) Comprehensive metabolic panel (08/13/2024 8:09 AM EDT) [facility] Sodium 138 133 - 145 mmol/L LAB CHEMISTRY METHOD 08/13/2024 10:10 AM [facility] Potassium 4.4 3.5 - 5.5 mmol/L LAB CHEMISTRY METHOD 08/13/2024 10:10 AM [facility] Chloride 105 96 - 110 mmol/L LAB CHEMISTRY METHOD 08/13/2024 10:10 AM [facility] CO2 27 21 - 32 mmol/L LAB CHEMISTRY METHOD 08/13/2024 10:10 AM [facility] Anion Gap 6 3 - 11 LAB CHEMISTRY METHOD 08/13/2024 10:10 AM [facility] Glucose 108(H) 70 - 100 mg/dL LAB CHEMISTRY METHOD 08/13/2024 10:10 AM [facility] BUN 19 5 - 25 mg/dL LAB CHEMISTRY METHOD 08/13/2024 10:10 AM [facility] Creatinine 0.84 0.50 - 1.10 mg/dL LAB CHEMISTRY METHOD 08/13/2024 10:10 AM [facility] eGFR 72 >=60 mL/min/1. 73m2 LAB CHEMISTRY METHOD 08/13/2024 10:10 AM [facility] Comment:Calculation based on the Chronic Kidney Disease Epidemiology Collaboration (CKD-EPI) equation refit without adjustment for race. BUN/Creatinine Ratio 22.6 LAB CHEMISTRY METHOD 08/13/2024 10:10 AM [facility] Calcium 9.4 8.5 - 10.5 mg/dL LAB CHEMISTRY METHOD 08/13/2024 10:10 AM [facility] AST (SGOT) 17 10 - 42 unit/L LAB CHEMISTRY METHOD 08/13/2024 10:10 AM [facility] ALT (SGPT) 32 10 - 60 unit/L LAB CHEMISTRY METHOD 08/13/2024 10:10 AM [facility] Alkaline Phosphatase 91 42 - 121 unit/L LAB CHEMISTRY METHOD 08/13/2024 10:10 AM [facility] Total Protein 7.4 6.0 - 8.0 g/dL LAB CHEMISTRY METHOD 08/13/2024 10:10 AM [facility] Albumin 3.9 3.2 - 5.0 g/dL LAB CHEMISTRY METHOD 08/13/2024 10:10 AM [facility] Total Bilirubin 0.3 0.0 - 1.4 mg/dL LAB CHEMISTRY METHOD 08/13/2024 10:10 AM [facility] Blood Venous blood specimen / Unknown Venipuncture / Unknown 08/13/2024 8:09 AM EDT 08/13/2024 9:10 AM EDT us Ronni Bradley NP LAB BLOOD ORDERABLES Final Re sult [facility] [address] [place] [address], * [facility] SCREENING DIGITAL (06/21/2023 4:40 PM EST) Anatomical Region Laterality Modality Mammography 06/21/2023 3:37 PM EST Narrative 06/21/2023 4:40 PM EST [facility] Diagnostic Imaging Department [address] [place] [address] Patient: APRIL JEAN./Age/Sex: 1945 - 77 - F Unit#: [id number] Location/Status: [facility] CLI Mnemonic/Ordering Site: [facility] Ordering Physician: GAVI PAULA MD [facility] Screening Digital - 06/21/23 - 1621 Report Status:Signed EXAM: [facility] Screening Digital EXAM DATE AND TIME: 06/21/2023 4:22 PM HISTORY: Annual screening COMPARISON: Multiple exams dating back to 2019 TECHNIQUE: Bilateral digital breast tomosynthesis was performed in the CC and MLO projections. Computer aided detection with [employer] 3D 3.1 was employed. TISSUE DENSITY: b. [...] screening mammogram BILATERAL in 1 year. 3341F, 7039F Dictating Physician: COURTNEY CHERRY MD Electronically Signed by: COURTNEY CHERRY MD Dic Date/Time: 06/21/23 1639 Sign date/Time: 06/21/23 1640 Procedure Note Courtney Cherry MD - 12/11/2023 [facility] Diagnostic Imaging Department [address] [place], [place] [id number] Patient: APRIL JEAN /Age/Sex: 1945 - 77 -F Unit#: [id number] Location/Status: [facility] CLI Mnemonic/Ordering Site: [facility] Ordering Physician: GAVI PAULA MD [facility] Screening Digital - 06/21/23 - 1621 Report Status:Signed EXAM: [facility] Screening Digital EXAM DATE AND TIME: 06/21/2023 4:22 PM HISTORY: Annual screening COMPARISON: Multiple exams dating back to 2019 TECHNIQUE: Bilateral digital breast tomosynthesis was performed in the CCand MLO projections. Computer aided detection with [employer] 3D 3.1was employed. TISSUE DENSITY: b. There [...] Most Recently Relevant to Health Maintenance Insurance [facility] Member Subscriber Plan / Payer (Ef fective 2018-Present) Name:April Jean Relation to Subscriber:Self Name:April Jean Payer ID:[id number] Group ID:[id number] Type:Not on file Address: [place] [address] [place] [address] Care Teams Tanning Wheel Filler Relationship Specialty Start Date End Date Gavi Paula MD [address] [place] [address] PCP - General Internal Medicine 08/13/24
--- OUTSIDE RECORDS SUMMARY | 2024-12-24 21:25 | XMS_ITS | Patient Health Record ---
Author Organization [facility] Address [address] [place] [address] Care Team Providers Care Nursing Informatics Clinical Analyst Name Role Phone Paula, Haydenmargie Primary Care Provider Lul Cook Unavailable [phone] Allergies No Known Allergies Reason For Referral [...] Problem Acquired hammer toe of right foot (9068126061203 105) Other hammer toe(s) (acquired), right foot (M20.41) Active confirmed Response to treatment,I mprovement Problem Type 2 diabetes mellitus with peripheral angiopathy (029270673) Type 2 diabetes mellitus with diabetic peripheral angiopathy without gangrene (E11.51) Active confirmed Q7(A), Q8(2B), Q9(1B,2C) Problem Acquired hammer toe of left foot (5377104824774 103) Other hammer toe(s) (acquired), left foot (M20.42) Active confirmed Response to treatment,I mprovement Vital Signs Height 5ft 2in in 07/29/2024 Weight 165 lbs 07/29/2024 BMI 30.18 kg/m2 07/29/2024 Procedures Procedure Date Ordered Date Performed Result Body Sit e 39688-WBMVOYO NAIL, 6 OR MORE 07/29/2024 N/A 90525-Hhayfzpf Plate 07/29/2024 N/A 64243-CNES SKIN LESIONS, OVER 4 07/29/2024 N/A Encounters Encounter Location Date Provider Diagnosis [facility] [address] 07/29/2024 Lul Ross Other hammer toe(s) (acquired), right foot M20.41 ; Other hammer toe(s) (acquired), left foot M20.42 ; Type 2 diabetes mellitus with diabetic peripheral angiopathy without gangrene E11.51 ; Tinea unguium B35.1 ; Pain in right toe(s) M79.674 ; Pain in left toe(s) M79.675 and Ingrown nail L60.[address] [facility] [address] 10/28/2024 Lul Ross Assessments Encounter Date Diagnosis [...] X ray : Foot, left 3V 02/21/2022 00765-NWCDSFL NAIL, 6 OR MORE 05/25/2022 64307-CQWDPDT NAIL, 6 OR MORE 01/12/2022 76044-KXAEKLR NAIL, 6 OR MORE 02/17/2021 14489-PYNLDKJ NAIL, 6 OR MORE 09/15/2021 62936-MYTMSPO NAIL, 6 OR MORE 01/31/2019 02916-OOMVKTG NAIL, 6 OR MORE 05/02/2019 39434-WJWCOPH NAIL, 6 OR MORE 11/27/2019 84981-DWIOJTP NAIL, 6 OR MORE 02/26/2020 60582-HCOINFM NAIL, 6 OR MORE 05/27/2020 97945-VKJBDRU NAIL, 6 OR MORE 08/26/2020 75955-EEVLTOP NAIL, 6 OR MORE 11/28/2022 22252-LJFSDBN NAIL, 6 OR MORE 02/22/2023 99171-NBMHBDO NAIL, 6 OR MORE 07/17/2023 84412-LPKJYFM NAIL, 6 OR MORE 10/16/2023 13462-KSZWQBL NAIL, 6 OR MORE 07/29/2024 75168-Rsup Destruction, 1-14 11/28/2022 09910-Kdqv Destruction, 1-14 10/16/2023 19664-Lziz Destruction, 1-14 07/17/2023 09219-Jkgy Destruction, 1-14 02/22/2023 51037-Wmpq Destruction, 1-14 08/26/2020 25521-Siky Destruction, 1-14 05/27/2020 19698-Gzqg Destruction, 1-14 02/26/2020 29274-Csus Destruction, 1-14 11/27/2019 76150-Dbbu Destruction, 1-14 09/15/2021 37784-Kjpq Destruction, 1-14 02/17/2021 94795-Dady Destruction, 1-14 01/12/2022 35110-Rham Destruction, 1-14 05/25/2022 20410-Erctevnn Plate 05/25/2022 40715-Hpcfkckk Plate 01/12/2022 08786-Qxlqlrke Plate 02/17/2021 03702-Wkuhtzgs Plate 09/15/2021 92740-Vlquuvlu Plate 11/27/2019 58280-Qoqofxyj Plate 02/26/2020 56252-Tqewkxln Plate 05/27/2020 91142-Ffmpvvwa Plate 08/26/2020 65515-Bntsfsvd Plate 02/22/2023 21727-Sqdducal Plate 11/28/2022 22377-Csehsrql Plate 07/17/2023 66873-Lxdlrssp Plate 10/16/2023 15316-Kmqblymw Plate 07/29/2024 26161-Wirlucwd Plate Each Additional 36258-Xjxqjhhj Plate Each Additional 62495-Pvrnxicm Plate Each Additional 10/2022 64954-Pnzncysi Plate Each Additional 04/2022 35846-Wkpdmauy Plate Each Additional 08/2020 76720-Krrtaptx Plate Each Additional 06/2020 01277-Eolmflhv Plate Each Additional 07/2019 19916-Qvkbavkl Plate Each Additional 08/2019 79310-Vwqevjjw Plate Each Additional 66287-Yxdgdjds Plate Each Additional 99059-Imrtvbzb Plate Each Additional 17099-Kvsfhdbx Plate Each Additional 04/2022 19968-KZLKPCB SKIN/TISSUE 02/21/2022 84285 I&D ABSCESS- SIMPLE,SINGLE 022 23496-HILK SKIN LESIONS, OVER 4 02/23/20 23 34617-OROJ SKIN LESIONS, OVER 4 07/17/19 24 22908-MFLU SKIN LESIONS, OVER 4 10/16/19 24 02709-BQZD SKIN LESIONS, OVER 4 07/30/19 80077-VMNP SKIN LESIONS, OVER 4 11/29/19 23 38187-OPJD SKIN LESIONS, OVER 4 05/25/19 66787-ZCWB SKIN LESIONS, OVER 4 01/13/20 23015-VSQO SKIN LESIONS, OVER 4 02/18/20 21 82754-DHJF SKIN LESIONS, OVER 4 09/16/19 71030-CISH SKIN LESIONS, OVER 4 05/27/19 17423-QXXL SKIN LESIONS, OVER 4 08/27/19 40562-MNHY SKIN LESIONS, 2 TO 4 02/26/20 Next Appt Details Provider Name:Lul Pace Vandana , 01/20/2025 03:00:00 PM, [address], [address], [place], [address], Insurance Providers Payer Name Payer Address Payer Phone Subscriber Number Group Number Insured Name Patient Relationship to Insured Coverage Start Date Coverage End Date [facility] [employer] Claims [address] [place] [phone] [id number] April Camacho Self - patient is the insured Medical (General) History Medical History History ICD Code Alzheimers disease Depression Diabetic lots of cramps Surgical History Surgery Date(Month/Year) gall bladder 1987 Hospitalization History Reason Date(Month/[facility]) [facility] cut [facility] 04/29/22 [facility] 01/10/22 [facility] Constipation 02/13/20
--- OUTSIDE RECORDS SUMMARY | 2024-12-24 21:25 | XMS_ITS | Patient Health Record ---
Author Organization [facility] Address [address] [place] [address] Care Team Providers Care Lay Out Machine Operator Name Role Phone GAVI DE LOS SANTOS Unavailable [phone] SHAREE GORDON Unavailable [phone] Allergies No Known Allergies Results Component Value Reference Range Notes CULTURE URINE Reviewed date:08/14/2024 07:46:44 AM Interpretation: Performing Lab: Notes/Report: Culture, Urine No growth URINALYSIS WITH REFLEX MICRO SCOPIC Reviewed date:08/13/2024 04:55:18 PM Interpretation: Performing Lab: Notes/Report: Specific Flora Urine 1.006 1.003-1.030 pH, Urine 8.0 5.0-8.0 pH Leukocytes, Urine Negative Negative Nitrite, Urine Negative Negative Protein, Urine Negative <=Trace mg/dL Glucose, Urine Negative Negative mg/dL Ketones, Urine Negative Negative mg/dL Urobilinogen, Urine 0.2 0.2-1.0 mg/dL Bilirubin, Urine Negative Negative Blood, Urine Negative Negative CBC WITH AUTO DIFFERENTIAL Reviewed date:08/13/2024 09:45:06 AM Interpretation: Performing Lab: Notes/Report: WBC 7.0 4.8-10.8 K/mcL RBC 4.10 3.80-4.80 M/mcL Hemoglobin 11.0 11.5-16.0 g/dL Hematocrit 35.6 35.0-47.0 % MCV 87.3 79.0-98.0 FL MCH 27.0 27.0-32.0 pcg MCHC 30.9 32.0-37.0 g/dL RDW 14.0 11.0-15.0 % Platelets 302 130-400 K/mcL MPV 11.0 7.0-11.0 FL NRBC 0.0 <1.0 % NRBC Absolute 0.00 <0.10 K/mcL Neutrophils Relative 55.5 Lymphocytes Relative 33.8 Monocytes Relative 8.9 Eosinophils Relative 1.1 Basophils Relative 0.4 Immature Granulocytes Relative 0.3 Neutrophils Absolute 3.90 1.50-7.00 K/mcL Lymphocytes Absolute 2.38 1.00-5.00 K/mcL Monocytes Absolute 0.63 0.20-1.00 K/mcL Eosinophils Absolute 0.08 0.00-0.50 K/mcL Basophils Absolute 0.03 0.00-0.20 K/mcL Immature Granulocytes Absolute 0.02 0.00-0.03 K/mcL HEMOGLOBIN A1C Reviewed date:08/13/2024 12:29:38 PM Interpretation: Performing Lab: Notes/Report: Hemoglobin A1C 6.8 <6.5 % Mean Bld Glu Estim. 148 COMPREHENSIVE METABOLIC PANE L Reviewed date:08/13/2024 11:14:22 AM Interpretation: Performing Lab: Notes/Report: Sodium 138 133-145 mmol/L Potassium 4.4 3.5-5.5 mmol/L Chloride 105 96-110 mmol/L CO2 27 21-32 mmol/L Anion Gap 6 3-11 Glucose 108 70-100 mg/dL BUN 19 5-25 mg/dL Creatinine 0.84 0.50-1.10 mg/dL eGFR 72 >=60 mL/min/1.73m2 Calculati on based on the?Chronic Kidney Disease Epidemiology Collaboration (CKD-EPI) equation refit?without adjustment for race. BUN/Creatinine Ratio 22.6 Calcium 9.4 8.5-10.5 mg/dL AST (SGOT) 17 10-42 unit/L ALT (SGPT) 32 10-60 unit/L Alkaline Phosphatase 91 42-121 unit/L Total Protein 7.4 6.0-8.0 g/dL Albumin 3.9 3.2-5.0 g/dL Total Bilirubin 0.3 0.0-1.4 mg/dL THYROID STIMULATING HORMONE Reviewed date:08/13/2024 11:14:22 AM Interpretation: Performing Lab: Notes/Report: TSH 2.02 0.40-4.00 mcIU/mL VITAMIN D 25 HYDROXY Reviewed date:08/13/2024 11:14:22 AM Interpretation: Performing Lab: Notes/Report: Vit D, 25-Hydroxy 30.1 30.0-80.0 ng/mL LIPID PANEL WITH REFLEX TO D IRECT LDL Reviewed date:08/13/2024 11:14:22 AM Interpretation: Performing Lab: Notes/Report: Cholesterol 160 0-200 mg/dL Triglycerides 131 0-150 mg/dL HDL 69 >=40 mg/dL LDL Calculated 65 0-100 mg/dL VLDL Cholesterol Rogelio 26.2 Non HDL Chol. (LDL+VLDL) 91 <145 mg/dL Chol/HDL Ratio 2.3 0.0-4.4 Reason For Referral No Information Medications Medication SIG (Take, Route, Frequency, Duration) Notes Start Date End Date Status Clotrimazole 1 % 1 application Media Librarian ally Twice a day; Duration: 30 days Active Atorvastatin Calcium 20 MG TAKE 1 TABLET BY MOUTH EVERY DAY Orally Once a day; Duration: 90 days Active metFORMIN HCl 500 MG TAKE 1 TABLET BY MO UT TWICE DAILY WITH A MEAL; Duration: 90 Active Folic Acid 1 MG 1 tablet Orally Once a day; Duration: 90 days Active Mounjaro 7.5 MG/0.5ML 7.5mg Subcutaneous weekly; Duration: 30 days 08/12/2024 Active Vitamin B12 100 MCG 1 tablet Orally Once a day; Duration: 90 days Active FreeStyle Lite Test - USE TO TEST TWICE DAILY DIRECTED; Duration: 50 Active Mounjaro 5 MG/0.5ML 5mg Subcutaneous wee kly; Duration: 30 days Active Mounjaro 5 MG/0.5ML ADMINISTER 5 MG UNDE R THE SKIN WEEKLY; Duration: 28 Active FreeStyle Lancets - USE TWICE DAILY dx e 11.9; Duration: 30 days Active Linzess 145 MCG 1 capsule at least 3 0 minutes before the first meal of the day on an empty stomach Orally Once a day; Duration: 30 days Active CeleBREX 200 MG 1 capsule with food Orally Once a day; Duration: 14 days 05/10/2022 Active Vitamin D3 125 MCG (5000 UT) 1 capsule Orally Once a day; Duration: 90 days Active FreeStyle Lite - as directed in vitro dx e11.9 twice daily; Duration: 30 days Active Farxiga 10 MG 1 tablet Orally Once a day; Duration: 90 days Active Immunizations Vaccine Route Administration Date Status Comme nts influenza IM Intramuscular 02/15/2022 Administered Influenza, high dose seasonal IM Intramuscular 01/25/2023 Administered Social History Tobacco Use: Social History Observation Description Date Details (start date - stop date) Never Smoker NA - NA Tobacco Use/Smoking Question Answer Notes Are you a nonsmoker Problems Problem Type SNOMED Code ICD Code Onset Dates Problem Status W/U Status Risk Notes Problem Hypothyroidism (44692584) Other specified hypothyroidism (E03.8) Active confirmed Problem Vitamin D deficiency (31885895) Vitamin D deficiency, unspecified (E55.9) Active confirmed Problem Hyperlipidemia (78873991) Hyperlipidemia, unspecified (E78.5) Active confirmed Problem Dementia (60959805) Dementia in other diseases classified elsewhere without behavioral disturbance (F02.80) Active confirmed Problem Essential hypertension (93054777) Essential (primary) hypertension (I10) Active confirmed Problem Adult health examination (488725555) Encounter for general adult medical examination without abnormal findings (Z00.00) Active confirmed Problem 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) Type 2 diabetes mellitus with complication, unspecified whether nursing home insulin use (E11.8) Active confirmed Problem Depressive disorder (disorder) (84942027) Depression, unspecified depression type (F32.9) Active confirmed Problem Hypothyroidism (48768669) Hypothyroidism, unspecified type (E03.9) Active confirmed Problem Dementia (60654654) Dementia without behavioral disturbance, unspecified dementia type (F03.90) Active confirmed Problem Screening for malignant neoplasm of breast (087436236) Breast cancer screening by mammogram (Z12.31) Active confirmed Problem Peripheral artery disease (177856116) Peripheral artery disease (I73.9) Active confirmed Problem Chronic kidney disease stage 3A (175401257) Stage 3a chronic kidney disease (N18.31) Active confirmed Problem Chronic constipation (234440502) Chronic constipation (K59.09) Active confirmed Problem Heart failure (64050447) Heart failure, unspecified HF chronicity, unspecified heart failure type (I50.9) Active confirmed Problem Constipation (72565486) Constipation (K59.00) Active confirmed Vital Signs Heart Rate 79 /min 11/28/2024 Blood pressure diastolic 80 mm Hg 11/28/2024 Oximetry 98 % 11/28/2024 Height 60 in 11/28/2024 Blood pressure systolic 130 mm Hg 11/28/2024 Weight 167.7 lbs 11/28/2024 BMI 32.75 kg/m2 11/28/2024 Encounters Encounter Location Date Provider Diagnosis [facility] [address] [address] 08/12/2024 SHAREE GORDON Adult general medica l exam Z00.00 ; Encounter for screening for other disorder Z13.89 ; Encounter for screening for depression Z13.31 ; Advanced directives, counseling/discussion Z71.89 ; Essential (primary) hypertension I10 ; Type 2 diabetes mellitus with complication, unspecified whether nursing home insulin use E11.8 ; Hyperlipidemia, unspecified E78.5 ; Stage 3a chronic kidney disease N18.31 ; Hypothyroidism, unspecified type E03.9 and Constipation K59.00 [facility] [address] [address] 11/28/2024 SHAREE GORDON Essential (primary) hypertension I10 ; Type 2 diabetes mellitus with complication, 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 ; Hyperlipidemia, unspecified E78.5 ; Stage 3a chronic kidney disease N18.31 ; Hypothyroidism, unspecified type E03.9 ; Constipation K59.00 and Encounter for examination of blood pressure without abnormal findings Z01.30 [facility] [address] [address] 03/06/2024 SHAREE GORDON Assessments Encounter Date Diagnosis (ICD Code) Assessment Notes Treatment Notes Treatment Clinical Notes Section Notes 11/28/2024 Essential (primary) hypertension (ICD-10 - I10) Acute Concerns/Problem List: 11/28/2024 Chronic conditions are stable Of note, some information is being carried forward from prior records for informational purposes only and is being cited so that efficiency, safety and quality of the patient's care is not compromised This note was prepared using voice recognition software and direct typing Please excuse inadvertent grill prep cook or typing errors, or uncorrected word substitutions Although every attempt has been made by the provider to proofread this document, occasional misspellings and typographical errors may still be present Due to the previous pandemic, and the use of personal protective equipment (PPE) This may decrease voice recognition accuracy Inadvertent grill prep cook errors may occur 08/12/2024 Encounter for screening for other disorder (ICD-10 - Z13.89) Acute Concerns/Problem List: 08/12/2024 MWV Chronic conditions are stable _update labs please Continue SGLT, Mounjaro and metformin Increase Mounjaro to 7.5 mg Of note, some information is being carried forward from prior records for informational purposes only and is being cited so that efficiency, safety and quality of the patient's care is not compromised This note was prepared using voice recognition software and direct typing Please excuse inadvertent grill prep cook or typing errors, or uncorrected word substitutions Although every attempt has been made by the provider to proofread this document, occasional misspellings and typographical errors may still be present Due to the previous pandemic, and the use of personal protective equipment (PPE) This may decrease voice recognition accuracy Inadvertent grill prep cook errors may occur 08/12/2024 Adult general medical exam (ICD-10 - Z00.00) Acute Concerns/Problem List: 08/12/2024 MWV Chronic conditions are stable _update labs please Continue SGLT, Mounjaro and metformin Increase Mounjaro to 7.5 mg Of note, some information is being carried forward from prior records for informational purposes only and is being cited so that efficiency, safety and quality of the patient's care is not compromised This note was prepared using voice recognition software and direct typing Please excuse inadvertent grill prep cook or typing errors, or uncorrected word substitutions Although every attempt has been made by the provider to proofread this document, occasional misspellings and typographical errors may still be present Due to the previous pandemic, and the use of personal protective equipment (PPE) This may decrease voice recognition accuracy Inadvertent grill prep cook errors may occur 08/12/2024 Encounter for screening for depression (ICD-10 - Z13.31) Acute Concerns/Problem List: 08/12/2024 MWV Chronic conditions are stable _update labs please Continue SGLT, Mounjaro and metformin Increase Mounjaro to 7.5 mg Of note, some information is being carried forward from prior records for informational purposes only and is being cited so that efficiency, safety and quality of the patient's care is not compromised This note was prepared using voice recognition software and direct typing Please excuse inadvertent grill prep cook or typing errors, or uncorrected word substitutions Although every attempt has been made by the provider to proofread this document, occasional misspellings and typographical errors may still be present Due to the previous pandemic, and the use of personal protective equipment (PPE) This may decrease voice recognition accuracy Inadvertent grill prep cook errors may occur 11/28/2024 Type 2 diabetes mellitus with complication, unspecified whether nursing home insulin use (ICD-10 - E11.8) Acute Concerns/Problem List: 11/28/2024 Chronic conditions are stable Of note, some information is being carried forward from prior records for informational purposes only and is being cited so that efficiency, safety and quality of the patient's care is not compromised This note was prepared using voice recognition software and direct typing Please excuse inadvertent grill prep cook or typing errors, or uncorrected word substitutions Although every attempt has been made by the provider to proofread this document, occasional misspellings and typographical errors may still be present Due to the previous pandemic, and the use of personal protective equipment (PPE) This may decrease voice recognition accuracy Inadvertent grill prep cook errors may occur 11/28/2024 Hyperlipidemia, unspecified (ICD-10 - E78.5) Acute Concerns/Problem List: 11/28/2024 Chronic conditions are stable Of note, some information is being carried forward from prior records for informational purposes only and is being cited so that efficiency, safety and quality of the patient's care is not compromised This note was prepared using voice recognition software and direct typing Please excuse inadvertent grill prep cook or typing errors, or uncorrected word substitutions Although every attempt has been made by the provider to proofread this document, occasional misspellings and typographical errors may still be present Due to the previous pandemic, and the use of personal protective equipment (PPE) This may decrease voice recognition accuracy Inadvertent grill prep cook errors may occur 08/12/2024 Advanced directives, counseling/discu ssion (ICD-10 - Z71.89) Acute Concerns/Problem List: 08/12/2024 MWV Chronic conditions are stable _update labs please Continue SGLT, Mounjaro and metformin Increase Mounjaro to 7.5 mg Of note, some information is being carried forward from prior records for informational purposes only and is being cited so that efficiency, safety and quality of the patient's care is not compromised This note was prepared using voice recognition software and direct typing Please excuse inadvertent grill prep cook or typing errors, or uncorrected word substitutions Although every attempt has been made by the provider to proofread this document, occasional misspellings and typographical errors may still be present Due to the previous pandemic, and the use of personal protective equipment (PPE) This may decrease voice recognition accuracy Inadvertent grill prep cook errors may occur 11/28/2024 Stage 3a chronic kidney disease (ICD-10 - N18.31) Acute Concerns/Problem List: 11/28/2024 Chronic conditions are stable Of note, some information is being carried forward from prior records for informational purposes only and is being cited so that efficiency, safety and quality of the patient's care is not compromised This note was prepared using voice recognition software and direct typing Please excuse inadvertent grill prep cook or typing errors, or uncorrected word substitutions Although every attempt has been made by the provider to proofread this document, occasional misspellings and typographical errors may still be present Due to the previous pandemic, and the use of personal protective equipment (PPE) This may decrease voice recognition accuracy Inadvertent grill prep cook errors may occur 08/12/2024 Essential (primary) hypertension (ICD-10 - I10) Acute Concerns/Problem List: 08/12/2024 MWV Chronic conditions are stable _update labs please Continue SGLT, Mounjaro and metformin Increase Mounjaro to 7.5 mg Of note, some information is being carried forward from prior records for informational purposes only and is being cited so that efficiency, safety and quality of the patient's care is not compromised This note was prepared using voice recognition software and direct typing Please excuse inadvertent grill prep cook or typing errors, or uncorrected word substitutions Although every attempt has been made by the provider to proofread this document, occasional misspellings and typographical errors may still be present Due to the previous pandemic, and the use of personal protective equipment (PPE) This may decrease voice recognition accuracy Inadvertent grill prep cook errors may occur 08/12/2024 Type 2 diabetes mellitus with complication, unspecified whether nursing home insulin use (ICD-10 - E11.8) Acute Concerns/Problem List: 08/12/2024 MWV Chronic conditions are stable _update labs please Continue SGLT, Mounjaro and metformin Increase Mounjaro to 7.5 mg Of note, some information is being carried forward from prior records for informational purposes only and is being cited so that efficiency, safety and quality of the patient's care is not compromised This note was prepared using voice recognition software and direct typing Please excuse inadvertent grill prep cook or typing errors, or uncorrected word substitutions Although every attempt has been made by the provider to proofread this document, occasional misspellings and typographical errors may still be present Due to the previous pandemic, and the use of personal protective equipment (PPE) This may decrease voice recognition accuracy Inadvertent grill prep cook errors may occur 11/28/2024 Hypothyroidism, unspecified type (ICD-10 - E03.9) Acute Concerns/Problem List: 11/28/2024 Chronic conditions are stable Of note, some information is being carried forward from prior records for informational purposes only and is being cited so that efficiency, safety and quality of the patient's care is not compromised This note was prepared using voice recognition software and direct typing Please excuse inadvertent grill prep cook or typing errors, or uncorrected word substitutions Although every attempt has been made by the provider to proofread this document, occasional misspellings and typographical errors may still be present Due to the previous pandemic, and the use of personal protective equipment (PPE) This may decrease voice recognition accuracy Inadvertent grill prep cook errors may occur 11/28/2024 Constipation (ICD-10 - K59.00) Acute Concerns/Problem List: 11/28/2024 Chronic conditions are stable Of note, some information is being carried forward from prior records for informational purposes only and is being cited so that efficiency, safety and quality of the patient's care is not compromised This note was prepared using voice recognition software and direct typing Please excuse inadvertent grill prep cook or typing errors, or uncorrected word substitutions Although every attempt has been made by the provider to proofread this document, occasional misspellings and typographical errors may still be present Due to the previous pandemic, and the use of personal protective equipment (PPE) This may decrease voice recognition accuracy Inadvertent grill prep cook errors may occur 08/12/2024 Hyperlipidemia, unspecified (ICD-10 - E78.5) Acute Concerns/Problem List: 08/12/2024 MWV Chronic conditions are stable _update labs please Continue SGLT, Mounjaro and metformin Increase Mounjaro to 7.5 mg Of note, some information is being carried forward from prior records for informational purposes only and is being cited so that efficiency, safety and quality of the patient's care is not compromised This note was prepared using voice recognition software and direct typing Please excuse inadvertent grill prep cook or typing errors, or uncorrected word substitutions Although every attempt has been made by the provider to proofread this document, occasional misspellings and typographical errors may still be present Due to the previous pandemic, and the use of personal protective equipment (PPE) This may decrease voice recognition accuracy Inadvertent grill prep cook errors may occur 11/28/2024 Encounter for examination of blood pressure without abnormal findings (ICD-10 - Z01.30) Acute Concerns/Problem List: 11/28/2024 Chronic conditions are stable Of note, some information is being carried forward from prior records for informational purposes only and is being cited so that efficiency, safety and quality of the patient's care is not compromised This note was prepared using voice recognition software and direct typing Please excuse inadvertent grill prep cook or typing errors, or uncorrected word substitutions Although every attempt has been made by the provider to proofread this document, occasional misspellings and typographical errors may still be present Due to the previous pandemic, and the use of personal protective equipment (PPE) This may decrease voice recognition accuracy Inadvertent grill prep cook errors may occur 08/12/2024 Stage 3a chronic kidney disease (ICD-10 - N18.31) Acute Concerns/Problem List: 08/12/2024 MWV Chronic conditions are stable _update labs please Continue SGLT, Mounjaro and metformin Increase Mounjaro to 7.5 mg Of note, some information is being carried forward from prior records for informational purposes only and is being cited so that efficiency, safety and quality of the patient's care is not compromised This note was prepared using voice recognition software and direct typing Please excuse inadvertent grill prep cook or typing errors, or uncorrected word substitutions Although every attempt has been made by the provider to proofread this document, occasional misspellings and typographical errors may still be present Due to the previous pandemic, and the use of personal protective equipment (PPE) This may decrease voice recognition accuracy Inadvertent grill prep cook errors may occur 08/12/2024 Hypothyroidism, unspecified type (ICD-10 - E03.9) Acute Concerns/Problem List: 08/12/2024 MWV Chronic conditions are stable _update labs please Continue SGLT, Mounjaro and metformin Increase Mounjaro to 7.5 mg Of note, some information is being carried forward from prior records for informational purposes only and is being cited so that efficiency, safety and quality of the patient's care is not compromised This note was prepared using voice recognition software and direct typing Please excuse inadvertent grill prep cook or typing errors, or uncorrected word substitutions Although every attempt has been made by the provider to proofread this document, occasional misspellings and typographical errors may still be present Due to the previous pandemic, and the use of personal protective equipment (PPE) This may decrease voice recognition accuracy Inadvertent grill prep cook errors may occur 08/12/2024 Constipation (ICD-10 - K59.00) Acute Concerns/Problem List: 08/12/2024 MWV Chronic conditions are stable _update labs please Continue SGLT, Mounjaro and metformin Increase Mounjaro to 7.5 mg Of note, some information is being carried forward from prior records for informational purposes only and is being cited so that efficiency, safety and quality of the patient's care is not compromised This note was prepared using voice recognition software and direct typing Please excuse inadvertent grill prep cook or typing errors, or uncorrected word substitutions Although every attempt has been made by the provider to proofread this document, occasional misspellings and typographical errors may still be present Due to the previous pandemic, and the use of personal protective equipment (PPE) This may decrease voice recognition accuracy Inadvertent grill prep cook errors may occur Plan Of Treatment Pending Test Test Name Order Date Mammogram 05/10/2022 25OH VITAMIN D 05/03/2023 25OH VITAMIN D 08/29/2018 25OH VITAMIN D 08/10/2023 25OH VITAMIN D 08/04/2022 CBC (COMPLETE BLOOD COUNT) 08/04/2022 CBC (COMPLETE BLOOD COUNT) 08/29/2018 CBC (COMPLETE BLOOD COUNT) 12/30/2020 CBC (COMPLETE BLOOD COUNT) 05/03/2023 CBC (COMPLETE BLOOD COUNT) 05/08/2020 COMPREHENSIVE METABOLIC PANEL 05/08/2020 COMPREHENSIVE METABOLIC PANEL 05/03/2023 COMPREHENSIVE METABOLIC PANEL 08/29/2018 COMPREHENSIVE METABOLIC PANEL 12/30/2020 COMPREHENSIVE METABOLIC PANEL 08/10/2023 COMPREHENSIVE METABOLIC PANEL 08/04/2022 HEMOGLOBIN A1C 08/04/2022 HEMOGLOBIN A1C 08/10/2023 HEMOGLOBIN A1C 08/29/2018 HEMOGLOBIN A1C 05/03/2023 HEMOGLOBIN A1C 12/30/2020 HEMOGLOBIN A1C 05/08/2020 HEMOGLOBIN A1C 09/10/2020 HEMOGLOBIN A1C 03/23/2021 LIPID PANEL 05/08/2020 LIPID PANEL 05/03/2023 LIPID PANEL 12/30/2020 LIPID PANEL 08/29/2018 LIPID PANEL 08/04/2022 LIPID PANEL 08/10/2023 MICROALBUMIN, URINE 03/23/2021 TSH 05/03/2023 TSH 08/10/2023 TSH 08/04/2022 TSH WITH REFLEX TO FT4 08/29/2018 URINALYSIS W/REFLEX CULTURE 05/03/2023 URINALYSIS W/REFLEX CULTURE 01/11/2022 URINALYSIS W/REFLEX CULTURE 08/10/2023 URINALYSIS, COMPLETE 05/08/2020 URINALYSIS, COMPLETE 08/29/2018 VITAMIN B12 08/29/2018 BNP (B -Type Natriuretic Peptide) 2020 CBC with Differential 08/10/2023 XR Abdomen 1 View 08/10/2023 COMPLETE URINALYSIS 08/04/2022 COMPLETE URINALYSIS 12/30/2020 Future Test Test Name Order Date COMPREHENSIVE METABOLIC PANEL 12/11/2020 HEMOGLOBIN A1C 12/11/2020 TSH 12/11/2020 BASIC METABOLIC PANEL 12/27/2021 HEMOGLOBIN A1C 12/27/2021 Next Appt Details Provider Name:SHAREE GORDON, 03/31/2025 10:30:00 AM, [address] [facility], [facility] [address], [place], [address], Insurance Providers Payer Name Payer Address Payer Phone Subscriber Number Group Number Insured Name Patient Relationship to Insured Coverage Start Date Coverage End Date [employer]/Martine or Options [address] [place] [id number] JEANNETTE DECKER Self - patient is the insured Medical (General) History Medical History History ICD Code diabetes mellitus depression Surgical History Surgery Date(Month/Year) right shoulder surgey gallbaldder colonoscopy 10 years
== END ==
LOC: HO.SL 20:30
PROVIDERS: PCP Student in an Organized Health Care Education/Training Program; Visit Provider Nurse Practitioner Family
DX: G47.33 Obstructive sleep apnea (adult) (pediatric) (principal); G47.10 Hypersomnia, unspecified
CPT/HCPCS: 95810

== ENCOUNTER 2024-12-29 18:39 | Outpatient (REF) | payer OTHER, SELFPAY ==
--- OUTSIDE RECORDS SUMMARY | 2023-09-19 07:30 | XMS_ITS ---
[facility] Organization [facility] [address] [address] Address [address] [place] [address] Care Team Providers Care Employment Specialist/Program Manager Name Role Phone GAVI DE LOS SANTOS Unavailable [phone] MICKISHAREE Busch Unavailable [phone] Medications Medication SIG (Take, Route, Frequency, Duration) [...] days Active Clotrimazole 1 % 1 application Restaurant Service Manager ally Twice a day; Duration: 30 days [...] Date Provider Diagnosis [facility] [address] [address] 09/19/2023 SHAREE GORDON Essential (primary) hypertension I10 ; Type 2 diabetes mellitus with complication, unspecified whether residential insulin use E11.8 ; Hyperlipidemia, unspecified E78.5 [...] high risk for cardiovascular events including stroke, SC As well as complications from infections, therefore immunizations are important The best way to monitor kidney function is through blood and urine test You should have these test done periodically If it is best if you complete the test a week or 2 before your visit with your primary care or director center So that the most recent data can [...] software and direct typing Please excuse inadvertent automatic folder seamer or typing errors, or uncorrected word substitutions Although every attempt has been made by the provider to proofread this document, occasional misspellings and typographical errors may still be present Due to the previous pandemic, and the use of personal protective equipment (PPE) This may decrease voice recognition accuracy Inadvertent automatic folder seamer errors may occur 09/19/2023 Type 2 diabetes mellitus with complication, unspecified whether terminologist insulin use (ICD-10 - E11.8) Acute Concerns/Problem [...] high risk for cardiovascular events including stroke, SC As well as complications from infections, therefore immunizations are important The best way to monitor kidney function is through blood and urine test You should have these test done periodically If it is best if you complete the test a week or 2 before your visit with your primary care or director center So that the most recent data can [...] software and direct typing Please excuse inadvertent automatic folder seamer or typing errors, or uncorrected word substitutions Although every attempt has been made by the provider to proofread this document, occasional misspellings and typographical errors may still be present Due to the previous pandemic, and the use of personal protective equipment (PPE) This may decrease voice recognition accuracy Inadvertent automatic folder seamer errors may occur 09/19/2023 Hyperlipidemia, unspecified (ICD-10 [...] high risk for cardiovascular events including stroke, SC As well as complications from infections, therefore immunizations are important The best way to monitor kidney function is through blood and urine test You should have these test done periodically If it is best if you complete the test a week or 2 before your visit with your primary care or director center So that the most recent data can [...] software and direct typing Please excuse inadvertent automatic folder seamer or typing errors, or uncorrected word substitutions Although every attempt has been made by the provider to proofread this document, occasional misspellings and typographical errors may still be present Due to the previous pandemic, and the use of personal protective equipment (PPE) This may decrease voice recognition accuracy Inadvertent automatic folder seamer errors may occur 09/19/2023 Heart failure, unspecified [...] high risk for cardiovascular events including stroke, SC As well as complications from infections, therefore immunizations are important The best way to monitor kidney function is through blood and urine test You should have these test done periodically If it is best if you complete the test a week or 2 before your visit with your primary care or director center So that the most recent data can [...] software and direct typing Please excuse inadvertent automatic folder seamer or typing errors, or uncorrected word substitutions Although every attempt has been made by the provider to proofread this document, occasional misspellings and typographical errors may still be present Due to the previous pandemic, and the use of personal protective equipment (PPE) This may decrease voice recognition accuracy Inadvertent automatic folder seamer errors may occur 09/19/2023 Stage 3a chronic [...] high risk for cardiovascular events including stroke, SC As well as complications from infections, therefore immunizations are important The best way to monitor kidney function is through blood and urine test You should have these test done periodically If it is best if you complete the test a week or 2 before your visit with your primary care or director center So that the most recent data can [...] software and direct typing Please excuse inadvertent automatic folder seamer or typing errors, or uncorrected word substitutions Although every attempt has been made by the provider to proofread this document, occasional misspellings and typographical errors may still be present Due to the previous pandemic, and the use of personal protective equipment (PPE) This may decrease voice recognition accuracy Inadvertent automatic folder seamer errors may occur 09/19/2023 Hypothyroidism, unspecified type [...] high risk for cardiovascular events including stroke, SC As well as complications from infections, therefore immunizations are important The best way to monitor kidney function is through blood and urine test You should have these test done periodically If it is best if you complete the test a week or 2 before your visit with your primary care or director center So that the most recent data can [...] software and direct typing Please excuse inadvertent automatic folder seamer or typing errors, or uncorrected word substitutions Although every attempt has been made by the provider to proofread this document, occasional misspellings and typographical errors may still be present Due to the previous pandemic, and the use of personal protective equipment (PPE) This may decrease voice recognition accuracy Inadvertent automatic folder seamer errors may occur 09/19/2023 Vitamin D deficiency, [...] high risk for cardiovascular events including stroke, SC As well as complications from infections, therefore immunizations are important The best way to monitor kidney function is through blood and urine test You should have these test done periodically If it is best if you complete the test a week or 2 before your visit with your primary care or director center So that the most recent data can [...] software and direct typing Please excuse inadvertent automatic folder seamer or typing errors, or uncorrected word substitutions Although every attempt has been made by the provider to proofread this document, occasional misspellings and typographical errors may still be present Due to the previous pandemic, and the use of personal protective equipment (PPE) This may decrease voice recognition accuracy Inadvertent automatic folder seamer errors may occur 09/19/2023 Constipation (ICD-10 - [...] high risk for cardiovascular events including stroke, SC As well as complications from infections, therefore immunizations are important The best way to monitor kidney function is through blood and urine test You should have these test done periodically If it is best if you complete the test a week or 2 before your visit with your primary care or director center So that the most recent data can [...] software and direct typing Please excuse inadvertent automatic folder seamer or typing errors, or uncorrected word substitutions Although every attempt has been made by the provider to proofread this document, occasional misspellings and typographical errors may still be present Due to the previous pandemic, and the use of personal protective equipment (PPE) This may decrease voice recognition accuracy Inadvertent automatic folder seamer errors may occur Plan Of Treatment Medication [...] Provider Name:SHAREE BORBESS, 03/31/2025 10:30:00 AM, [address] [facility], [facility], [place], [address], Progress Notes * JEANNETTE DECKER DDOB :1945 (79 yo F)Acc No.[id number]:09/19/2023 Progress Notes Patient: JEANNETTE LY Provider: Patience GORDON NP :1945 A ge:77 Y S ex:Female Date:09/19/2023 Address:[address] [place], [place] [id number] Subjective: * Chief Complaints: * * HPI: [...] by her sister Jenny, is with her SOCIAL MEDIA CAMPAIGN MANAGER, home eval done, GSSS for potential hours, now gets 11 hrs weekly Her health care proxy is her sister, (Oleksandr) who takes care of her at home Healthcare proxy and MOLST filed other Past history that includes diabetes, hyperlipidemia, mild dementia recently evaluated for cardiac evaluation by windlace machine operator Ash Apparently patient was in the [place] and was noted to have apparent PVD and CHF Because of that she was started on spironolactone, Plavix and anticoagulation There are obviously no records available from that medical evaluation and then she returned to [facility] In these medications were discontinued by PCP She does have that some claudication bilaterally with walks she otherwise denies any shortness of breath rotations or syncope Cardiology is Monitoring and ordering lower extremity ultrasounds to assess circulation as well as echocardiograms She recently saw her plisse machine operator helper treated her for infection of the left [...] 50% Acute hospitalizations Patient was evaluated at [facility] on December 26 2022 Past history that [...] the ED back in april 2022 s/p [facility]. fall Patients daughter reports they think she was dizzy in the morning. Was then found to have sleep apnea. Doing much better on CPAP she was admitted on September 25, 2021, and discharged on September 28, 2021 at [facility] Who presented to the emergency department with [...] 01/2023 DM Opho: 07/2023 DM Podiatry: 07/2023 [facility]. * ROS: A ll Other Systems: [...] 2 diabetes mellitus with complication, unspecified whether residential insulin use - E11.8 3 . H [...] high risk for cardiovascular events including stroke, SC As well as complications from infections, therefore immunizations are important The best way to monitor kidney function is through blood and urine test You should have these test done periodically If it is best if you complete the test a week or 2 before your visit with your primary care or director center So that the most recent data can [...] software and direct typing Please excuse inadvertent automatic folder seamer or typing errors, or uncorrected word substitutions Although every attempt has been made by the provider to proofread this document, occasional misspellings and typographical errors may still be present Due to the previous pandemic, and the use of personal protective equipment (PPE) This may decrease voice recognition accuracy Inadvertent automatic folder seamer errors may occur. Plan: * Treatment: * Procedure Codes: 9 9199 NO SHOW OFFICE VISIT * Images: Billing Information: * Visit Code: * Procedure Codes: 55563 NO SHOW OFFICE VISIT. Care Plan Details* * Electronic signature of LEONARDO GORDON on 12/29/2024 at 06:44 PM EDT Sign off status: Pending * Provider: Patience GORDON NP Date: 0 09/19/2023 Generated for Stan Liu/Naun on: 0 12/29/2024 06:44 PM EDT History and Physical Notes * [...] by her sister Jenny, is with her SOCIAL MEDIA CAMPAIGN MANAGER, home eval done, GSSS for potential hours, now gets 11 hrs weekly Her health care proxy is her sister, (Oleksandr) who takes care of her at home Healthcare proxy and MOLST filed other Past history that includes diabetes, hyperlipidemia, mild dementia recently evaluated for cardiac evaluation by windlace machine operator Ash Apparently patient was in the [place] and was noted to have apparent PVD and CHF Because of that she was started on spironolactone, Plavix and anticoagulation There are obviously no records available from that medical evaluation and then she returned to [facility] In these medications were discontinued by PCP She does have that some claudication bilaterally with walks she otherwise denies any shortness of breath rotations or syncope Cardiology is Monitoring and ordering lower extremity ultrasounds to assess circulation as well as echocardiograms She recently saw her plisse machine operator helper treated her for infection of the left [...] 50% Acute hospitalizations Patient was evaluated at [facility] on December 26 2022 Past history that [...] the ED back in april 2022 s/p [facility]. fall Patients daughter reports they think she was dizzy in the morning. Was then found to have sleep apnea. Doing much better on CPAP she was admitted on September 25, 2021, and discharged on September 28, 2021 at [facility] Who presented to the emergency department with [...] 01/2023 DM Opho: 07/2023 DM Podiatry: 07/2023 [facility] Examination Category Sub-Category Detail Notes Category [...]
--- OUTSIDE RECORDS SUMMARY | 2024-08-15 07:00 | XMS_ITS ---
Author Organization [facility] [address] Address [address] [place] [address] Care Team Providers Care Netsuite Developer Name Role Phone GAVI DE LOS SANTOS Unavailable [phone] SHAREE GORDON Unavailable [phone] REASON FOR VISIT labs Encounters Encounter Location Date Provider Diagnosis [facility] [address] [address] 08/15/2024 SHAREE GORDON Plan Of Treatment Next Appt Details Provider Name:SHAREE GORDON, 03/31/2025 10:30:00 AM, [address], [address], Progress Notes * JEANNETTE DECKER DDOB :1945 (79 yo F)Acc No.[id number]:08/15/2024 Progress Note Patient: Bill CHO JEANNETTE SANTANA Provider: Patience GORDON NP :1945 A ge:78 Y S ex:Female Date:08/15/2024 Address:[address] [place] [address] Subjective: * Chief Complaints: * 1 . Labs. * Medical History: Objective: * Vitals: Assessment: Plan: * Treatment: * Images: Billing Information: * Visit Code: * Procedure Codes: Care Plan Details* * Electronic signature of LEONARDO GORDON on 12/29/2024 at 06:43 PM EDT Sign off status: Pending * Provider: Patience GORDON NP Date: 0 08/15/2024 Generated for Stan yao/Esther/Naun on: 0 12/29/2024 06:43 PM EDT
--- OUTSIDE RECORDS SUMMARY | 2024-10-28 11:30 | XMS_ITS ---
Author Organization [facility] Address [address] [place] [address] Care Team Providers Care Screen Printer Name Role Phone Kosta Paula Primary Care Provider Unavailabl Lul Aggarwal Unavailable [phone] Encounters Encounter Location Date Provider Diagnosis [address] [address] 10/28/2024 Lul Ross Plan Of Treatment Next Appt Details Provider Name:Lul Ross , 01/20/2025 03:00:00 PM, [address] [place] [address], [phone], Progress Notes * April LAWSONDOB: (79 yo F)Acc No.[id number]:10/28/2024 Progress Note Patient: April QUEVEDO Provider: Migue Ross DPM :1945 A ge:79 Y S ex:Female Date:10/28/2024 Address:[address] [place] [phone] Pcp:Kosta Paula Subjective: * Chief Complaints: * [...] 0 10/28/2024 Generated for Stan yao/Esther/Naun on: 12/29/2024 06:44 PM EDT
--- NOTE | ~2024-12-29 | MR_ITS ---
EXAMINATION: MR BRAIN WITHOUT IV CONTRAST HISTORY: R68.89 - Other general symptoms and signs TECHNIQUE: Sagittal T1, coronal FLAIR, and axial T1, FLAIR, T2, gradient echo, and diffusion weighted MR images of the brain were obtained. COMPARISON: There are no prior studies available for comparison. FINDINGS: The pituitary is normal in size. The cerebellar tonsils are normally located. There is diffuse prominence of the ventricular system and cortical sulci, consistent with atrophy. Periventricular and subcortical white matter hyperintensities are noted on the FLAIR and T2-weighted images which are nonspecific, but often seen in the setting of small vessel ischemic disease. There is no mass effect or midline shift. No intra or extra-axial fluid collections are identified. There are no foci of restricted diffusion. Normal vascular flow voids are noted in the basilar and carotid arteries. The visualized paranasal sinuses are clear. MR/MR head/brain wo con IMPRESSION: Diffuse cerebral atrophy and findings consistent with small vessel ischemic disease of the white matter as described. Electronically signed by: Jose Armando Chase MD 12/30/2024 08:27 AM EDT
--- OUTSIDE RECORDS SUMMARY | 2024-12-29 18:44 | XMS_ITS | Patient Health Record ---
Author Organization [facility] Address [address] [place] [address] Care Team Providers Care Truck Washer Name Role Phone Paula, Haydenmargie Primary Care Provider Lul Cook Unavailable [phone] Allergies No Known Allergies Reason For Referral [...] Problem Acquired hammer toe of right foot (7541363226513 105) Other hammer toe(s) (acquired), right foot (M20.41) Active confirmed Response to treatment,I mprovement Problem Type 2 diabetes mellitus with peripheral angiopathy (358756354) Type 2 diabetes mellitus with diabetic peripheral angiopathy without gangrene (E11.51) Active confirmed Q7(A), Q8(2B), Q9(1B,2C) Problem Acquired hammer toe of left foot (8115074346310 103) Other hammer toe(s) (acquired), left foot (M20.42) Active confirmed Response to treatment,I mprovement Vital Signs Height 5ft 2in in 07/29/2024 Weight 165 lbs 07/29/2024 BMI 30.18 kg/m2 07/29/2024 Procedures Procedure Date Ordered Date Performed Result Body Sit e 13588-CYFJNNY NAIL, 6 OR MORE 07/29/2024 N/A 99997-Qsqybrxv Plate 07/29/2024 N/A 53869-ORKC SKIN LESIONS, OVER 4 07/29/2024 N/A Encounters Encounter Location Date Provider Diagnosis [facility] [address] 07/29/2024 Lul Ross Other hammer toe(s) (acquired), right foot M20.41 ; Other hammer toe(s) (acquired), left foot M20.42 ; Type 2 diabetes mellitus with diabetic peripheral angiopathy without gangrene E11.51 ; Tinea unguium B35.1 ; Pain in right toe(s) M79.674 ; Pain in left toe(s) M79.675 and Ingrown nail L60.[address] [facility] [address] 10/28/2024 Lul Ross Assessments Encounter Date Diagnosis [...] X ray : Foot, left 3V 02/21/2022 82587-LZJZCKT NAIL, 6 OR MORE 05/25/2022 08610-ENRAAXO NAIL, 6 OR MORE 01/12/2022 66251-LVNZSSD NAIL, 6 OR MORE 02/17/2021 88600-SNHPQCI NAIL, 6 OR MORE 09/15/2021 48072-IZWFDRE NAIL, 6 OR MORE 01/31/2019 63453-STLYKZT NAIL, 6 OR MORE 05/02/2019 94163-QJYYYNY NAIL, 6 OR MORE 11/27/2019 26243-LXNZGBV NAIL, 6 OR MORE 02/26/2020 05148-FUNNCEY NAIL, 6 OR MORE 05/27/2020 75426-OTFPBZZ NAIL, 6 OR MORE 08/26/2020 85098-QGIYADC NAIL, 6 OR MORE 11/28/2022 73592-GYZUTWP NAIL, 6 OR MORE 02/22/2023 47703-FYUJSQA NAIL, 6 OR MORE 07/17/2023 57871-IXIZSCR NAIL, 6 OR MORE 10/16/2023 86165-UVXVNLL NAIL, 6 OR MORE 07/29/2024 04547-Ijck Destruction, 1-14 11/28/2022 40069-Aztv Destruction, 1-14 10/16/2023 59352-Kvfr Destruction, 1-14 07/17/2023 76952-Lqis Destruction, 1-14 02/22/2023 09398-Vohd Destruction, 1-14 08/26/2020 28136-Ekuc Destruction, 1-14 05/27/2020 53908-Mjzi Destruction, 1-14 02/26/2020 21692-Pmsi Destruction, 1-14 11/27/2019 99521-Bilu Destruction, 1-14 09/15/2021 44262-Qwtw Destruction, 1-14 02/17/2021 66170-Ydkf Destruction, 1-14 01/12/2022 06612-Ednw Destruction, 1-14 05/25/2022 57823-Zxqmeaal Plate 05/25/2022 13860-Ndiyxzdw Plate 01/12/2022 15858-Npwjouoj Plate 02/17/2021 30166-Mfgxicrg Plate 09/15/2021 33220-Rlpjkyiv Plate 11/27/2019 61440-Ettbaxtq Plate 02/26/2020 49359-Dindoguk Plate 05/27/2020 10751-Yweeuoes Plate 08/26/2020 30225-Wbrektef Plate 02/22/2023 25987-Mxlgyofx Plate 11/28/2022 12983-Btdcnxzq Plate 07/17/2023 24457-Mlzgvqdo Plate 10/16/2023 69299-Xcdhtohd Plate 07/29/2024 96007-Fanbmjbb Plate Each Additional 37099-Hhmugdaw Plate Each Additional 38548-Eocuipas Plate Each Additional 10/2022 80568-Qovtcvrr Plate Each Additional 04/2022 55568-Fnfxumvz Plate Each Additional 08/2020 26344-Wulsrsjm Plate Each Additional 06/2020 42782-Haehwaku Plate Each Additional 07/2019 38478-Uqtnghwy Plate Each Additional 08/2019 68947-Kwgfbmkn Plate Each Additional 83938-Wjmunuju Plate Each Additional 35004-Apyaqbpd Plate Each Additional 47143-Bmkcinor Plate Each Additional 04/2022 07332-HCDLAAG SKIN/TISSUE 02/21/2022 37739 I&D ABSCESS- SIMPLE,SINGLE 022 87450-XGVJ SKIN LESIONS, OVER 4 02/23/20 23 33041-DPPM SKIN LESIONS, OVER 4 07/17/19 24 53038-IFMH SKIN LESIONS, OVER 4 10/16/19 24 13442-QPRK SKIN LESIONS, OVER 4 07/30/19 19661-AUZO SKIN LESIONS, OVER 4 11/29/19 23 04081-VBLI SKIN LESIONS, OVER 4 05/25/19 75895-RXPY SKIN LESIONS, OVER 4 01/13/20 72052-MYLU SKIN LESIONS, OVER 4 02/18/20 21 82882-FWFM SKIN LESIONS, OVER 4 09/16/19 13084-SXHJ SKIN LESIONS, OVER 4 05/27/19 20675-FOBC SKIN LESIONS, OVER 4 08/27/19 50108-JTRR SKIN LESIONS, 2 TO 4 02/26/20 Next Appt Details Provider Name:Lul Pace Vandana , 01/20/2025 03:00:00 PM, [address] [facility], [address], [place], [address], Insurance Providers Payer Name Payer Address Payer Phone Subscriber Number Group Number Insured Name Patient Relationship to Insured Coverage Start Date Coverage End Date [facility] [employer] Claims [address] [place] [id number] April Camacho Self - patient is the insured Medical (General) History Medical History History ICD Code Alzheimers disease Depression Diabetic lots of cramps Surgical History Surgery Date(Month/Year) gall bladder 1987 Hospitalization History Reason Date(Month/Year) [facility], cut [facility] head 04/29/22 [facility] lungs 01/10/22 [facility] Constipation 02/13/20
--- OUTSIDE RECORDS SUMMARY | 2024-12-29 18:44 | XMS_ITS | Clinical Summary ---
Author Organization [address] Address [address] [place] [address] Phone Care Team Providers Care Unemployment Inspector Name Role Phone Gavi Paula MD Primary Care Provider [phone] Allergies No known active allergies Medications linaCLOtide (Linzess) 145 mcg capsule 1 (one) time each day at the same time. Active atorvastatin (LIPITOR) 20 mg tablet 1 (one) time each day at the same time. Active clotrimazole (LOTRIMIN) 1 % cream 1 Application every 12 hours. Active cyanocobalamin (VITAMIN B-12) 100 mcg tablet 1 tablet (100 mcg total) 1 (one) time each day at the same time. Active folic acid (FOLVITE) 1 mg tablet 1 tablet (1,000 mcg total) 1 (one) time each day at the same time. Active cholecalciferol (VITAMIN D-3) 125 mcg (5,000 unit) capsule 1 capsule (5,000 Units total) 1 (one) time each day at the same time. Active celecoxib (CeleBREX) 200 mg capsule 1 capsule (200 mg total) 1 (one) time each day at the same time. 3 Active dapagliflozin propanediol (Farxiga) 10 mg tablet 1 tablet (10 mg total) 1 (one) time each day at the same time. Active metFORMIN (GLUCOPHAGE) 500 mg tablet TAKE 1 TABLET BY MOUTH TWICE DAILY WITH A MEAL for 90 Active tirzepatide (Mounjaro) 5 mg/0.5 mL injection Inject 0.5 mL (5 mg total) under the skin. Active blood-glucose meter kit 1 each if needed. Active Encounters Date Type Department Care Team Description 12/27/2024 Telephone Gastroenterology - [place] [address] [facility] [address] [place] [address] Germán Rudolph MD from Last 3 Months Surgical History Surgery Date Site/Laterality Comments SHOULDER SURGERY Right PROCEDURE: HISTORICAL SHOULDER SURGERY CHOLECYSTECTOMY PROCEDURE: MO CHOLECYSTECTOMY COLONOSCOPY PROCEDURE: HISTORICAL COLONOSCOPY Medical History [...] series) 10/23/2022 Depression Screening 04/24/2024 COVID-19 Vaccine (2 - season) 2024 03/16/2021 Influenza Vaccine (#1) 2024 , 01/26/2021, 02/22/2020 Diabetes: Blood Sugar Control Test [...] V28) Hyperlipemia Myxedema heart disease Avitaminosis D PILLO SCREENING DIGITAL Routine 06/21/2023 4:40 PM EST Encounter for screening mammogram for malignant neoplasm of breast from Last 3 Months or Most Recently Relevant to Health Maintenance Results * Lipid panel with reflex to direct LDL (08/13/2024 8:09 AM EDT) Cholesterol 160 0 - 200 mg/dL LAB CHEMISTRY METHOD 08/13/2024 10:10 AM EDT [facility] Triglycerides 131 0 - 150 mg/dL LAB CHEMISTRY METHOD 08/13/2024 10:10 AM EDT [facility] HDL 69 >=40 mg/dL LAB CHEMISTRY METHOD 08/13/2024 10:10 AM EDT [facility] LDL Calculated 65 0 - 100 mg/dL LAB CHEMISTRY METHOD 08/13/2024 10:10 AM EDT [facility] VLDL Cholesterol Rogelio 26.2 mg/dL LAB CHEMISTRY METHOD 08/13/2024 10:10 AM EDT [facility] Non HDL Chol. (LDL+VLDL) 91 <145 mg/dL LAB CHEMISTRY METHOD 08/13/2024 10:10 AM T [facility] Chol/HDL Ratio 2.3 0.0 - 4.4 LAB CHEMISTRY METHOD 08/13/2024 10:10 AM T [facility] Blood Venous blood specimen / Unknown Venipuncture / Unknown 08/13/2024 8:09 AM EDT 08/13/2024 9:10 AM EDT us Ronni Bradley [employer]OM[employer]ION[employer]DEL LAB BLOOD ORDERABLES Final Re sult [facility] [address] [place] [address], * (ABNORMAL) Hemoglobin A1c (08/13/2024 8:09 AM EDT) Hemoglobin A1C 6.8(H) <6.5 % LAB CHEMISTRY METHOD 08/13/2024 11:45 AM EDT [facility] Mean Bld Glu Estim. 148 mg/dL LAB CHEMISTRY METHOD 08/13/2024 11:45 AM EDT [facility] Blood Venous blood specimen / Unknown Venipuncture / Unknown 08/13/2024 8:09 AM EDT 08/13/2024 9:11 AM EDT us Ronni Bradley [employer]OM[employer]ION[employer] LAB BLOOD ORDERABLES Final Re sult [facility] [address] [place] [address], * (ABNORMAL) Comprehensive metabolic panel (08/13/2024 8:09 AM EDT) Sodium 138 133 - 145 mmol/L LAB CHEMISTRY METHOD 08/13/2024 10:10 AM [facility] Potassium 4.4 3.5 - 5.5 mmol/L LAB CHEMISTRY METHOD 08/13/2024 10:10 AM [facility] Chloride 105 96 - 110 mmol/L LAB CHEMISTRY METHOD 08/13/2024 10:10 AM [facility] CO2 27 21 - 32 mmol/L LAB CHEMISTRY METHOD 08/13/2024 10:10 AM [facility] Anion Gap 6 3 - 11 LAB CHEMISTRY METHOD 08/13/2024 10:10 AM [facility] Glucose 108(H) 70 - 100 mg/dL LAB CHEMISTRY METHOD 08/13/2024 10:10 AM [facility] BUN 19 5 - 25 mg/dL LAB CHEMISTRY METHOD 08/13/2024 10:10 AM [facility] Creatinine 0.84 0.50 - 1.10 mg/dL LAB CHEMISTRY METHOD 08/13/2024 10:10 AM [facility] eGFR 72 >=60 mL/min/1. 73m2 LAB CHEMISTRY METHOD 08/13/2024 10:10 AM [facility] Comment:Calculation based on the Chronic Kidney Disease Epidemiology Collaboration (CKD-EPI) equation refit without adjustment for race. BUN/Creatinine Ratio 22.6 LAB CHEMISTRY METHOD 08/13/2024 10:10 AM [facility] Calcium 9.4 8.5 - 10.5 mg/dL LAB CHEMISTRY METHOD 08/13/2024 10:10 AM [facility] AST (SGOT) 17 10 - 42 unit/L LAB CHEMISTRY METHOD 08/13/2024 10:10 AM [facility] ALT (SGPT) 32 10 - 60 unit/L LAB CHEMISTRY METHOD 08/13/2024 10:10 AM [facility] Alkaline Phosphatase 91 42 - 121 unit/L LAB CHEMISTRY METHOD 08/13/2024 10:10 AM [facility] Total Protein 7.4 6.0 - 8.0 g/dL LAB CHEMISTRY METHOD 08/13/2024 10:10 AM [facility] Albumin 3.9 3.2 - 5.0 g/dL LAB CHEMISTRY METHOD 08/13/2024 10:10 AM [facility] Total Bilirubin 0.3 0.0 - 1.4 mg/dL LAB CHEMISTRY METHOD 08/13/2024 10:10 AM [facility] Blood Venous blood specimen / Unknown Venipuncture / Unknown 08/13/2024 8:09 AM EDT 08/13/2024 9:10 AM EDT us Ronni Bradley [employer] LAB BLOOD ORDERABLES Final Re sult [facility] [address] [place] [address], * PILLO SCREENING DIGITAL (06/21/2023 4:40 PM EST) Anatomical Region Laterality Modality Mammography 06/21/2023 3:37 PM EST Narrative 06/21/2023 4:40 PM EST [facility] Diagnostic Imaging Department [address] [place] [address] Patient: ARGELIA SANTANAAPRIL /Age/Sex: 1945 - 77 - F Unit#: [id number] Location/Status: SPDIMAM/REG CLI Mnemonic/Ordering Site: [facility] Ordering Physician: GAVI PAULA MD [facility] Digital - 06/21/23 - 1621 Report Status:Signed EXAM: [facility] EXAM DATE AND TIME: 06/21/2023 4:22 PM HISTORY: Annual screening COMPARISON: Multiple exams dating back to 2019 TECHNIQUE: Bilateral digital breast tomosynthesis was performed in the CC and MLO projections. 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 TISSUE DENSITY: b. [...] Procedure Note Courtney Cherry MD - 12/11/2023 [facility] Diagnostic Imaging Department [address] [place] [id number] Patient: APRIL JEAN./Age/Sex: 1945 - 77 -F Unit#: [id number] Location/Status: SPDIMA/REG CLI Mnemonic/Ordering Site: [facility] Ordering Physician: GAVI PAULA MD [facility] - 06/21/23 - 1621 Report Status:Signed EXAM: [facility] Digital EXAM DATE AND TIME: 06/21/2023 4:22 PM HISTORY: Annual screening COMPARISON: Multiple exams dating back to 2019 TECHNIQUE: Bilateral digital breast tomosynthesis was performed in the CCand MLO projections. Computer aided detection with [facility] [employer] 3D 3.1was employed. TISSUE DENSITY: b. There [...] Most Recently Relevant to Health Maintenance Insurance [facility] Member Subscriber Plan / Payer (Ef fective 2018-Present) Name:April Jean Relation to Subscriber:Self Name:April Jean Payer ID:[id number] Group ID:[id number] Type:Not on file Address: [place] [address] [place] [phone] Care Teams Unemployment Inspector Relationship Specialty Start Date End Date Gavi Paula MD [address] [place] [id number] PCP - General Internal Medicine 08/13/24
--- OUTSIDE RECORDS SUMMARY | 2024-12-29 18:44 | XMS_ITS | Patient Health Record ---
Author Organization [facility] [address] Address [address] [place] [address] Care Team Providers Care Checkerer Hand Name Role Phone GAVI DE LOS SANTOS Unavailable [phone] SHAREE GORDON Unavailable [phone] Allergies No Known Allergies Results Component Value Reference Range Notes CULTURE URINE Reviewed date:08/14/2024 07:46:44 AM Interpretation: Performing Lab: Notes/Report: Culture, Urine No growth URINALYSIS WITH REFLEX MICRO SCOPIC Reviewed date:08/13/2024 04:55:18 PM Interpretation: Performing Lab: Notes/Report: Specific [place] Urine 1.006 1.003-1.030 pH, Urine 8.0 5.0-8.0 [...] Chol/HDL Ratio 2.3 0.0-4.4 Reason For Referral Reason evaluate & treat Diagnosis 1 Colon cancer screeni maximilian (Z12.11) Referral Organization [facility] [address] Referring Provider First Name GAVI Referring Provider Last Name FILIBERTO Referring Provider Speciality Internal M edicine Referred Provider Specialty Gastroentero logy General Notes Josefina Edda 12/26 03:35:12 PM >faxed to DR. Rudolph , [phone], p. 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 day; Duration: 30 days [...] Status W/U Status Risk Notes Problem Hypothyroidism (06904968) Other specified hypothyroidism (E03.8) Active confirmed Problem Vitamin D deficiency (67866350) Vitamin D deficiency, unspecified (E55.9) Active confirmed Problem Hyperlipidemia (11588377) Hyperlipidemia, unspecified (E78.5) Active confirmed Problem Dementia (45809307) Dementia in other diseases classified elsewhere without behavioral disturbance (F02.80) Active confirmed Problem Essential hypertension (98891978) Essential (primary) hypertension (I10) Active confirmed Problem Adult health examination (506133946) Encounter for general adult medical examination without abnormal findings (Z00.00) Active confirmed Problem 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) Type 2 diabetes mellitus with complication, unspecified whether terminal computer operator insulin use (E11.8) Active confirmed Problem Depressive disorder (disorder) (80835856) Depression, unspecified depression type (F32.9) Active confirmed Problem Hypothyroidism (22528902) Hypothyroidism, unspecified type (E03.9) Active confirmed Problem Dementia (61738574) Dementia without behavioral disturbance, unspecified dementia type (F03.90) Active confirmed Problem Screening for malignant neoplasm of breast (237333654) Breast cancer screening by mammogram (Z12.31) Active confirmed Problem Peripheral artery disease (477582021) Peripheral artery disease (I73.9) Active confirmed Problem Chronic kidney disease stage 3A (803919388) Stage 3a chronic kidney disease (N18.31) Active confirmed Problem Chronic constipation (271659455) Chronic constipation (K59.09) Active confirmed Problem Heart failure (42613251) Heart failure, unspecified HF chronicity, unspecified heart failure type (I50.9) Active confirmed Problem Constipation (98910521) Constipation (K59.00) Active confirmed Vital Signs Heart Rate 79 /min 11/28/2024 Oximetry 98 % 11/28/2024 Blood pressure diastolic 80 mm Hg 11/28/2024 Height 60 in 11/28/2024 Blood pressure systolic 130 mm Hg 11/28/2024 Weight 167.7 lbs 11/28/2024 BMI 32.75 kg/m2 11/28/2024 Encounters Encounter Location Date Provider Diagnosis [facility] [address] 08/12/2024 SHAREE GORDON Adult general medica l [...] Hypothyroidism, unspecified type E03.9 and Constipation K59.00 [facility] [address] [address] 11/28/2024 SHAREE GORDON Essential (primary) hypertension I10 ; Type 2 diabetes mellitus with complication, unspecified whether jail insulin use E11.8 ; Hyperlipidemia, unspecified E78.5 ; Stage 3a chronic kidney disease N18.31 ; Hypothyroidism, unspecified type E03.9 ; Constipation K59.00 and Encounter for examination of blood pressure without abnormal findings Z01.30 [facility] [address] [address] 03/06/2024 SHAREE GORDON [facility] [address] [place] [address] 12/26/2024 SHAREE GORDON Assessments Encounter Date Diagnosis (ICD [...] software and direct typing Please excuse inadvertent resident buyer or typing errors, or uncorrected word substitutions Although every attempt has been made by the provider to proofread this document, occasional misspellings and typographical errors may still be present Due to the previous pandemic, and the use of personal protective equipment (PPE) This may decrease voice recognition accuracy Inadvertent resident buyer errors may occur 08/12/2024 Encounter for screening [...] software and direct typing Please excuse inadvertent resident buyer or typing errors, or uncorrected word substitutions Although every attempt has been made by the provider to proofread this document, occasional misspellings and typographical errors may still be present Due to the previous pandemic, and the use of personal protective equipment (PPE) This may decrease voice recognition accuracy Inadvertent resident buyer errors may occur 08/12/2024 Adult general medical [...] software and direct typing Please excuse inadvertent resident buyer or typing errors, or uncorrected word substitutions Although every attempt has been made by the provider to proofread this document, occasional misspellings and typographical errors may still be present Due to the previous pandemic, and the use of personal protective equipment (PPE) This may decrease voice recognition accuracy Inadvertent resident buyer errors may occur 08/12/2024 Encounter for screening for depression (ICD-10 - Z13.31) Acute Concerns/Problem List: 08/12/2024 MW Chronic conditions are stable _update labs please Continue SGLT, Mounjaro and metformin Increase Mounjaro to 7.5 mg Of note, some information is being carried forward from prior records for informational purposes only and is being cited so that efficiency, safety and quality of the patient's care is not compromised This note was prepared using voice recognition software and direct typing Please excuse inadvertent resident buyer or typing errors, or uncorrected word substitutions Although every attempt has been made by the provider to proofread this document, occasional misspellings and typographical errors may still be present Due to the previous pandemic, and the use of personal protective equipment (PPE) This may decrease voice recognition accuracy Inadvertent resident buyer errors may occur 11/28/2024 Type 2 diabetes mellitus with complication, unspecified whether terminal computer operator insulin use (ICD-10 - E11.8) Acute Concerns/Problem List: 11/28/2024 Chronic conditions are stable Of note, some information is being carried forward from prior records for informational purposes only and is being cited so that efficiency, safety and quality of the patient's care is not compromised This note was prepared using voice recognition software and direct typing Please excuse inadvertent resident buyer or typing errors, or uncorrected word substitutions Although every attempt has been made by the provider to proofread this document, occasional misspellings and typographical errors may still be present Due to the previous pandemic, and the use of personal protective equipment (PPE) This may decrease voice recognition accuracy Inadvertent resident buyer errors may occur 11/28/2024 Hyperlipidemia, unspecified (ICD-10 - E78.5) Acute Concerns/Problem List: 11/28/2024 Chronic conditions are stable Of note, some information is being carried forward from prior records for informational purposes only and is being cited so that efficiency, safety and quality of the patient's care is not compromised This note was prepared using voice recognition software and direct typing Please excuse inadvertent resident buyer or typing errors, or uncorrected word substitutions Although every attempt has been made by the provider to proofread this document, occasional misspellings and typographical errors may still be present Due to the previous pandemic, and the use of personal protective equipment (PPE) This may decrease voice recognition accuracy Inadvertent resident buyer errors may occur 08/12/2024 Advanced directives, counseling/discu [...] software and direct typing Please excuse inadvertent resident buyer or typing errors, or uncorrected word substitutions Although every attempt has been made by the provider to proofread this document, occasional misspellings and typographical errors may still be present Due to the previous pandemic, and the use of personal protective equipment (PPE) This may decrease voice recognition accuracy Inadvertent resident buyer errors may occur 08/12/2024 Essential (primary) hypertension [...] software and direct typing Please excuse inadvertent resident buyer or typing errors, or uncorrected word substitutions Although every attempt has been made by the provider to proofread this document, occasional misspellings and typographical errors may still be present Due to the previous pandemic, and the use of personal protective equipment (PPE) This may decrease voice recognition accuracy Inadvertent resident buyer errors may occur 11/28/2024 Stage 3a chronic [...] software and direct typing Please excuse inadvertent resident buyer or typing errors, or uncorrected word substitutions Although every attempt has been made by the provider to proofread this document, occasional misspellings and typographical errors may still be present Due to the previous pandemic, and the use of personal protective equipment (PPE) This may decrease voice recognition accuracy Inadvertent resident buyer errors may occur 11/28/2024 Hypothyroidism, unspecified type [...] software and direct typing Please excuse inadvertent resident buyer or typing errors, or uncorrected word substitutions Although every attempt has been made by the provider to proofread this document, occasional misspellings and typographical errors may still be present Due to the previous pandemic, and the use of personal protective equipment (PPE) This may decrease voice recognition accuracy Inadvertent resident buyer errors may occur 08/12/2024 Type 2 diabetes mellitus with complication, unspecified whether terminal computer operator insulin use (ICD-10 - E11.8) Acute Concerns/Problem List: 08/12/2024 MW Chronic conditions are stable _update labs please Continue SGLT, Mounjaro and metformin Increase Mounjaro to 7.5 mg Of note, some information is being carried forward from prior records for informational purposes only and is being cited so that efficiency, safety and quality of the patient's care is not compromised This note was prepared using voice recognition software and direct typing Please excuse inadvertent resident buyer or typing errors, or uncorrected word substitutions Although every attempt has been made by the provider to proofread this document, occasional misspellings and typographical errors may still be present Due to the previous pandemic, and the use of personal protective equipment (PPE) This may decrease voice recognition accuracy Inadvertent resident buyer errors may occur 08/12/2024 Hyperlipidemia, unspecified (ICD-10 [...] software and direct typing Please excuse inadvertent resident buyer or typing errors, or uncorrected word substitutions Although every attempt has been made by the provider to proofread this document, occasional misspellings and typographical errors may still be present Due to the previous pandemic, and the use of personal protective equipment (PPE) This may decrease voice recognition accuracy Inadvertent resident buyer errors may occur 11/28/2024 Constipation (ICD-10 - K59.00) Acute Concerns/Problem List: 11/28/2024 Chronic conditions are stable Of note, some information is being carried forward from prior records for informational purposes only and is being cited so that efficiency, safety and quality of the patient's care is not compromised This note was prepared using voice recognition software and direct typing Please excuse inadvertent resident buyer or typing errors, or uncorrected word substitutions Although every attempt has been made by the provider to proofread this document, occasional misspellings and typographical errors may still be present Due to the previous pandemic, and the use of personal protective equipment (PPE) This may decrease voice recognition accuracy Inadvertent resident buyer errors may occur 11/28/2024 Encounter for examination [...] software and direct typing Please excuse inadvertent resident buyer or typing errors, or uncorrected word substitutions Although every attempt has been made by the provider to proofread this document, occasional misspellings and typographical errors may still be present Due to the previous pandemic, and the use of personal protective equipment (PPE) This may decrease voice recognition accuracy Inadvertent resident buyer errors may occur 08/12/2024 Stage 3a chronic [...] software and direct typing Please excuse inadvertent resident buyer or typing errors, or uncorrected word substitutions Although every attempt has been made by the provider to proofread this document, occasional misspellings and typographical errors may still be present Due to the previous pandemic, and the use of personal protective equipment (PPE) This may decrease voice recognition accuracy Inadvertent resident buyer errors may occur 08/12/2024 Hypothyroidism, unspecified type [...] software and direct typing Please excuse inadvertent resident buyer or typing errors, or uncorrected word substitutions Although every attempt has been made by the provider to proofread this document, occasional misspellings and typographical errors may still be present Due to the previous pandemic, and the use of personal protective equipment (PPE) This may decrease voice recognition accuracy Inadvertent resident buyer errors may occur 08/12/2024 Constipation (ICD-10 - [...] software and direct typing Please excuse inadvertent resident buyer or typing errors, or uncorrected word substitutions Although every attempt has been made by the provider to proofread this document, occasional misspellings and typographical errors may still be present Due to the previous pandemic, and the use of personal protective equipment (PPE) This may decrease voice recognition accuracy Inadvertent resident buyer errors may occur Plan Of Treatment Pending Test Test Name Order Date Mammogram 05/10/2022 25OH VITAMIN D 05/03/2023 25OH VITAMIN D 08/29/2018 25OH VITAMIN D 08/04/2022 25OH VITAMIN D 08/10/2023 CBC (COMPLETE BLOOD COUNT) 05/03/2023 CBC (COMPLETE BLOOD COUNT) 05/08/2020 CBC (COMPLETE BLOOD COUNT) 08/04/2022 CBC (COMPLETE BLOOD COUNT) 12/30/2020 CBC (COMPLETE BLOOD COUNT) 08/29/2018 COMPREHENSIVE METABOLIC PANEL 08/29/2018 COMPREHENSIVE METABOLIC PANEL 12/30/2020 COMPREHENSIVE METABOLIC PANEL 08/04/2022 COMPREHENSIVE METABOLIC PANEL 05/08/2020 COMPREHENSIVE METABOLIC PANEL 08/10/2023 COMPREHENSIVE METABOLIC PANEL 05/03/2023 HEMOGLOBIN A1C 05/08/2020 HEMOGLOBIN A1C 08/10/2023 HEMOGLOBIN A1C 08/04/2022 HEMOGLOBIN A1C 12/30/2020 HEMOGLOBIN A1C 05/03/2023 HEMOGLOBIN A1C 03/23/2021 HEMOGLOBIN A1C 09/10/2020 HEMOGLOBIN A1C 08/29/2018 LIPID PANEL 08/29/2018 LIPID PANEL 12/30/2020 LIPID PANEL 08/04/2022 LIPID PANEL 05/08/2020 LIPID PANEL 05/03/2023 LIPID PANEL 08/10/2023 MICROALBUMIN, URINE 03/23/2021 TSH 08/10/2023 TSH 05/03/2023 TSH 08/04/2022 TSH WITH REFLEX TO FT4 08/29/2018 URINALYSIS W/REFLEX CULTURE 01/11/2022 URINALYSIS W/REFLEX CULTURE 05/03/2023 URINALYSIS W/REFLEX CULTURE 08/10/2023 URINALYSIS, COMPLETE 05/08/2020 URINALYSIS, COMPLETE 08/29/2018 VITAMIN B12 08/29/2018 BNP (B -Type Natriuretic Peptide) 2020 CBC with Differential 08/10/2023 XR Abdomen 1 View 08/10/2023 COMPLETE URINALYSIS 12/30/2020 COMPLETE URINALYSIS 08/04/2022 Future Test Test Name Order Date COMPREHENSIVE METABOLIC PANEL 12/11/2020 HEMOGLOBIN A1C 12/11/2020 TSH 12/11/2020 BASIC METABOLIC PANEL 12/27/2021 HEMOGLOBIN A1C 12/27/2021 Next Appt Details Provider Name:SHAREE GORDON, 03/31/2025 10:30:00 AM, [address] [facility], [facility] [address], [place], [address], Insurance Providers Payer Name Payer Address Payer Phone Subscriber Number Group Number Insured Name Patient Relationship to Insured Coverage Start Date Coverage End Date [employer]Martine or Options [address] [place] [id number] [phone] [id number] JEANNETTE DECKER Self - patient is the insured Medical (General) History Medical History History ICD Code diabetes mellitus depression Surgical History Surgery Date(Month/Year) right shoulder surgey gallbaldder colonoscopy 10 years
--- OUTSIDE RECORDS SUMMARY | 2024-12-29 18:44 | XMS_ITS | Encounter Summary ---
Author Organization [facility] Address [address] [place] [address] Care Team Providers Care Inspector Floor Sub Assembly Name Role Phone Kosta Paula MD Primary Care Provider [phone] Reason for Visit * Reason Onset Date Comments Special Procedure 12/27/2024 Encounter Details Date Type Department Care Team (Late st Contact Info) Description 12/27/2024 Telephone Gastroenterology - [place] [address] [facility] [address] [facility] [address] [place] [address] Germán Rudolph MD [address] [place] [id number] Social History Tobacco Use Types Packs/Day Years Used Date Smoking Tobacco: Never Smokeless Tobacco: Never Alcohol Use Standard Drinks/Week Comments Never 0 (1 standard drink = 0.6 oz pur e alcohol) Comments Unknown Sex and Gender Information Value Date Recorded Sex Assigned at Not on file Legal Sex Female 2:14 AM EST Gender Identity Not on file Sexual Orientation Not on file documented as of this encounter Progress Notes * Dayan Mohamud MA - 12/27/2024 12:48 PM EDT Medications and allergies updated. Referral packet given to schedulers. SHARON * Shaneka Dhillon - 12/27/2024 12:32 PM EDT Received records from Internal Medicine for a colonoscopy screening. Given to Dayan to update meds/allergies. documented in this encounter Plan of Treatment Not on file documented as of this encounter Visit Diagnoses Not on filedocumented in this encounter Care Teams Inspector Floor Sub Assembly Relationship Specialty Start Date End Date Kosta Paula MD [address] [place] [address] [place] [address] PCP - General Internal Medicine 08/13/24 documented as of this encounter
== END 2024-12-29 18:40 | disposition home or self-care (01) ==
LOC: HO.MRI 18:39
PROVIDERS: PCP Internal Medicine; Visit Provider Physician Assistant Medical
DX: R68.89 Other general symptoms and signs (principal)
CPT/HCPCS: 70551

== ENCOUNTER → 2024-12-29 18:56 | Outpatient (BNV) | payer OTHER, SELFPAY | PROVIDERS: PCP Internal Medicine; Visit Provider Radiology Diagnostic Radiology | DX: G31.9 Degenerative disease of nervous system, unspecified (principal) | CPT/HCPCS: 70551 ==

== ENCOUNTER 2025-03-13 13:36 | Outpatient (AMB) | payer OTHER, SELFPAY ==
--- OUTSIDE RECORDS SUMMARY | 2023-09-19 06:30 | XMS_ITS ---
Author Organization [facility] [address] Address [address] [place] [address] Care Team Providers Care Nozzleman Name Role Phone SHAREE GORDON Unavailable [phone] Medications Medication SIG (Take, Route, Frequency, Duration) Notes Start Date End Date Status CeleBREX 200 MG Capsule 1 capsule with f ood Orally Once a day; Duration: 14 days 05/10/2022 Active Vitamin D3 125 MCG (5000 UT) Capsule 1 capsule Orally Once a day; Duration: 90 days Active Folic Acid 1 MG Tablet 1 tablet Orally O nce a day; Duration: 90 days Active Vitamin B12 100 MCG Tablet 1 tablet Oral ly Once a day; Duration: 90 days Active Farxiga 10 MG Tablet 1 tablet Orally Onc e a day; Duration: 90 days Active Atorvastatin Calcium 20 MG Tablet TAKE 1 TABLET BY MOUTH EVERY DAY Orally Once a day; Duration: 90 days Active Linzess 145 MCG Capsule [address] 30 minutes before the first meal of the day on an empty stomach Orally Once a day; Duration: 30 days Active Mounjaro 5 MG/0.5ML Solution Pen-injector 5mg Subcutaneous weekly; Duration: 30 days Active Clotrimazole 1 % Cream 1 application Ext ernally Twice a day; Duration: 30 days Active metFORMIN HCl 500 MG Tablet TAKE 1 TABLE T BY MOUTH TWICE DAILY WITH A MEAL; Duration: 90 Active FreeStyle Test - Strip as directed dxe11 .[id number] In Vitro twice daily; Duration: 30 days 04/11/2023 Active FreeStyle Lancets - Miscellaneous USE TWICE DAILY dx e11.9; Duration: 30 days Active FreeStyle Lite - Device as directed in v itro dx e11.9 twice daily; Duration: 30 days Active Mounjaro 2.5 MG/0.5ML Solution Pen-injector 2.5mg Subcutaneous weekly; Duration: 30 days 01/25/2023 Active Encounters Encounter Location Date Provider Diagnosis [facility] [address] [address] 09/19/2023 SHAREE GORDON Essential (primary) hypertension I10 ; Type 2 diabetes mellitus with complication, 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 ; Hyperlipidemia, unspecified E78.5 ; Heart failure, unspecified HF chronicity, unspecified heart failure type I50.9 ; Stage 3a chronic kidney disease N18.31 ; Hypothyroidism, unspecified type E03.9 ; Vitamin D deficiency, unspecified E55.9 and Constipation K59.00 Assessments Encounter Date Diagnosis (ICD Code) Assessment Notes Treatment Notes Treatment Clinical Notes Section Notes 09/19/2023 Essential (primary) hypertension (ICD-10 - I10) Acute Concerns/Problem List: 09/19/2023 Chronic conditions are stable Continue SGLT, Mounjaro and metformin Abdomen x-ray for constipation Linzess Screening measures discussed Will see her back in the fall for [facility] We discussed in detail the management of diabetes mellitus. Emphasis was paid on nutrition, low carbohydrate diet with good fat and protein sources, fruits and vegetables was discussed. Exercise was recommended. Incorporation of daily walking into a routine was discussed. A pedometer goal of 10,000 steps was discussed. Management of diabetes mellitus along with medications to treat the condition was discussed. Importance of diabetic foot exam, diabetic eye exam, urine microalbumin analysis annually was discussed. Side effects of diabetic medications were discussed again. Patient agrees to take medications as prescribed and comply with lifestyle modifications. Chronic kidney disease is usually silent Typical causes include diabetes and high blood pressure as well as dehydration If you have these issues, please make sure that there tightly controlled Ask your PCP what your blood pressure and hemoglobin A1c target should be in no your numbers Blood pressure recordings and sugar recordings should also be discussed Chronic kidney disease are at high risk for cardiovascular events including stroke, PR As well as complications from infections, therefore immunizations are important The best way to monitor kidney function is through blood and urine test You should have these test done periodically If it is best if you complete the test a week or 2 before your visit with your primary care or children's institution attendant So that the most recent data can be discussed at your visit You should keep accurate medication lists The use of nonsteroidal anti-inflammatory drugs (NSAIDS) should be avoided and cautioned The best diet for people with hypertension and chronic kidney disease include balanced Mediterranean style diet, or DASH Which limit sodium intake below 2000 mg a day, limiting carbohydrate intake under 250 g a day and avoiding simple sugars and sweets Limit consumption of alcohol Caffeine in moderation such as 1-2 cups of regular coffee a day is okay Of note, some information is being carried forward from prior records for informational purposes only and is being cited so that efficiency, safety and quality of the patient's care is not compromised This note was prepared using voice recognition software and direct typing Please excuse inadvertent windsmith or typing errors, or uncorrected word substitutions Although every attempt has been made by the provider to proofread this document, occasional misspellings and typographical errors may still be present Due to the previous pandemic, and the use of personal protective equipment (PPE) This may decrease voice recognition accuracy Inadvertent windsmith errors may occur 09/19/2023 Type 2 diabetes mellitus with complication, unspecified whether skilled nursing insulin use (ICD-10 - E11.8) Acute Concerns/Problem List: 09/19/2023 Chronic conditions are stable Continue SGLT, Mounjaro and metformin Abdomen x-ray for constipation Linzess Screening measures discussed Will see her back in the fall for [facility] We discussed in detail the management of diabetes mellitus. Emphasis was paid on nutrition, low carbohydrate diet with good fat and protein sources, fruits and vegetables was discussed. Exercise was recommended. Incorporation of daily walking into a routine was discussed. A pedometer goal of 10,000 steps was discussed. Management of diabetes mellitus along with medications to treat the condition was discussed. Importance of diabetic foot exam, diabetic eye exam, urine microalbumin analysis annually was discussed. Side effects of diabetic medications were discussed again. Patient agrees to take medications as prescribed and comply with lifestyle modifications. Chronic kidney disease is usually silent Typical causes include diabetes and high blood pressure as well as dehydration If you have these issues, please make sure that there tightly controlled Ask your PCP what your blood pressure and hemoglobin A1c target should be in no your numbers Blood pressure recordings and sugar recordings should also be discussed Chronic kidney disease are at high risk for cardiovascular events including stroke, PR As well as complications from infections, therefore immunizations are important The best way to monitor kidney function is through blood and urine test You should have these test done periodically If it is best if you complete the test a week or 2 before your visit with your primary care or children's institution attendant So that the most recent data can be discussed at your visit You should keep accurate medication lists The use of nonsteroidal anti-inflammatory drugs (NSAIDS) should be avoided and cautioned The best diet for people with hypertension and chronic kidney disease include balanced Mediterranean style diet, or DASH Which limit sodium intake below 2000 mg a day, limiting carbohydrate intake under 250 g a day and avoiding simple sugars and sweets Limit consumption of alcohol Caffeine in moderation such as 1-2 cups of regular coffee a day is okay Of note, some information is being carried forward from prior records for informational purposes only and is being cited so that efficiency, safety and quality of the patient's care is not compromised This note was prepared using voice recognition software and direct typing Please excuse inadvertent windsmith or typing errors, or uncorrected word substitutions Although every attempt has been made by the provider to proofread this document, occasional misspellings and typographical errors may still be present Due to the previous pandemic, and the use of personal protective equipment (PPE) This may decrease voice recognition accuracy Inadvertent windsmith errors may occur 09/19/2023 Hyperlipidemia, unspecified (ICD-10 - E78.5) Acute Concerns/Problem List: 09/19/2023 Chronic conditions are stable Continue SGLT, Mounjaro and metformin Abdomen x-ray for constipation Linzess Screening measures discussed Will see her back in the fall for [facility] We discussed in detail the management of diabetes mellitus. Emphasis was paid on nutrition, low carbohydrate diet with good fat and protein sources, fruits and vegetables was discussed. Exercise was recommended. Incorporation of daily walking into a routine was discussed. A pedometer goal of 10,000 steps was discussed. Management of diabetes mellitus along with medications to treat the condition was discussed. Importance of diabetic foot exam, diabetic eye exam, urine microalbumin analysis annually was discussed. Side effects of diabetic medications were discussed again. Patient agrees to take medications as prescribed and comply with lifestyle modifications. Chronic kidney disease is usually silent Typical causes include diabetes and high blood pressure as well as dehydration If you have these issues, please make sure that there tightly controlled Ask your PCP what your blood pressure and hemoglobin A1c target should be in no your numbers Blood pressure recordings and sugar recordings should also be discussed Chronic kidney disease are at high risk for cardiovascular events including stroke, PR As well as complications from infections, therefore immunizations are important The best way to monitor kidney function is through blood and urine test You should have these test done periodically If it is best if you complete the test a week or 2 before your visit with your primary care or children's institution attendant So that the most recent data can be discussed at your visit You should keep accurate medication lists The use of nonsteroidal anti-inflammatory drugs (NSAIDS) should be avoided and cautioned The best diet for people with hypertension and chronic kidney disease include balanced Mediterranean style diet, or DASH Which limit sodium intake below 2000 mg a day, limiting carbohydrate intake under 250 g a day and avoiding simple sugars and sweets Limit consumption of alcohol Caffeine in moderation such as 1-2 cups of regular coffee a day is okay Of note, some information is being carried forward from prior records for informational purposes only and is being cited so that efficiency, safety and quality of the patient's care is not compromised This note was prepared using voice recognition software and direct typing Please excuse inadvertent windsmith or typing errors, or uncorrected word substitutions Although every attempt has been made by the provider to proofread this document, occasional misspellings and typographical errors may still be present Due to the previous pandemic, and the use of personal protective equipment (PPE) This may decrease voice recognition accuracy Inadvertent windsmith errors may occur 09/19/2023 Heart failure, unspecified HF chronicity, unspecified heart failure type (ICD-10 - I50.9) Acute Concerns/Problem List: 09/19/2023 Chronic conditions are stable Continue SGLT, Mounjaro and metformin Abdomen x-ray for constipation Linzess Screening measures discussed Will see her back in the fall for [facility] We discussed in detail the management of diabetes mellitus. Emphasis was paid on nutrition, low carbohydrate diet with good fat and protein sources, fruits and vegetables was discussed. Exercise was recommended. Incorporation of daily walking into a routine was discussed. A pedometer goal of 10,000 steps was discussed. Management of diabetes mellitus along with medications to treat the condition was discussed. Importance of diabetic foot exam, diabetic eye exam, urine microalbumin analysis annually was discussed. Side effects of diabetic medications were discussed again. Patient agrees to take medications as prescribed and comply with lifestyle modifications. Chronic kidney disease is usually silent Typical causes include diabetes and high blood pressure as well as dehydration If you have these issues, please make sure that there tightly controlled Ask your PCP what your blood pressure and hemoglobin A1c target should be in no your numbers Blood pressure recordings and sugar recordings should also be discussed Chronic kidney disease are at high risk for cardiovascular events including stroke, PR As well as complications from infections, therefore immunizations are important The best way to monitor kidney function is through blood and urine test You should have these test done periodically If it is best if you complete the test a week or 2 before your visit with your primary care or children's institution attendant So that the most recent data can be discussed at your visit You should keep accurate medication lists The use of nonsteroidal anti-inflammatory drugs (NSAIDS) should be avoided and cautioned The best diet for people with hypertension and chronic kidney disease include balanced Mediterranean style diet, or DASH Which limit sodium intake below 2000 mg a day, limiting carbohydrate intake under 250 g a day and avoiding simple sugars and sweets Limit consumption of alcohol Caffeine in moderation such as 1-2 cups of regular coffee a day is okay Of note, some information is being carried forward from prior records for informational purposes only and is being cited so that efficiency, safety and quality of the patient's care is not compromised This note was prepared using voice recognition software and direct typing Please excuse inadvertent windsmith or typing errors, or uncorrected word substitutions Although every attempt has been made by the provider to proofread this document, occasional misspellings and typographical errors may still be present Due to the previous pandemic, and the use of personal protective equipment (PPE) This may decrease voice recognition accuracy Inadvertent windsmith errors may occur 09/19/2023 Stage 3a chronic kidney disease (ICD-10 - N18.31) Acute Concerns/Problem List: 09/19/2023 Chronic conditions are stable Continue SGLT, Mounjaro and metformin Abdomen x-ray for constipation Linzess Screening measures discussed Will see her back in the fall for [facility] We discussed in detail the management of diabetes mellitus. Emphasis was paid on nutrition, low carbohydrate diet with good fat and protein sources, fruits and vegetables was discussed. Exercise was recommended. Incorporation of daily walking into a routine was discussed. A pedometer goal of 10,000 steps was discussed. Management of diabetes mellitus along with medications to treat the condition was discussed. Importance of diabetic foot exam, diabetic eye exam, urine microalbumin analysis annually was discussed. Side effects of diabetic medications were discussed again. Patient agrees to take medications as prescribed and comply with lifestyle modifications. Chronic kidney disease is usually silent Typical causes include diabetes and high blood pressure as well as dehydration If you have these issues, please make sure that there tightly controlled Ask your PCP what your blood pressure and hemoglobin A1c target should be in no your numbers Blood pressure recordings and sugar recordings should also be discussed Chronic kidney disease are at high risk for cardiovascular events including stroke, PR As well as complications from infections, therefore immunizations are important The best way to monitor kidney function is through blood and urine test You should have these test done periodically If it is best if you complete the test a week or 2 before your visit with your primary care or children's institution attendant So that the most recent data can be discussed at your visit You should keep accurate medication lists The use of nonsteroidal anti-inflammatory drugs (NSAIDS) should be avoided and cautioned The best diet for people with hypertension and chronic kidney disease include balanced Mediterranean style diet, or DASH Which limit sodium intake below 2000 mg a day, limiting carbohydrate intake under 250 g a day and avoiding simple sugars and sweets Limit consumption of alcohol Caffeine in moderation such as 1-2 cups of regular coffee a day is okay Of note, some information is being carried forward from prior records for informational purposes only and is being cited so that efficiency, safety and quality of the patient's care is not compromised This note was prepared using voice recognition software and direct typing Please excuse inadvertent windsmith or typing errors, or uncorrected word substitutions Although every attempt has been made by the provider to proofread this document, occasional misspellings and typographical errors may still be present Due to the previous pandemic, and the use of personal protective equipment (PPE) This may decrease voice recognition accuracy Inadvertent windsmith errors may occur 09/19/2023 Hypothyroidism, unspecified type (ICD-10 - E03.9) Acute Concerns/Problem List: 09/19/2023 Chronic conditions are stable Continue SGLT, Mounjaro and metformin Abdomen x-ray for constipation Linzess Screening measures discussed Will see her back in the fall for [facility] We discussed in detail the management of diabetes mellitus. Emphasis was paid on nutrition, low carbohydrate diet with good fat and protein sources, fruits and vegetables was discussed. Exercise was recommended. Incorporation of daily walking into a routine was discussed. A pedometer goal of 10,000 steps was discussed. Management of diabetes mellitus along with medications to treat the condition was discussed. Importance of diabetic foot exam, diabetic eye exam, urine microalbumin analysis annually was discussed. Side effects of diabetic medications were discussed again. Patient agrees to take medications as prescribed and comply with lifestyle modifications. Chronic kidney disease is usually silent Typical causes include diabetes and high blood pressure as well as dehydration If you have these issues, please make sure that there tightly controlled Ask your PCP what your blood pressure and hemoglobin A1c target should be in no your numbers Blood pressure recordings and sugar recordings should also be discussed Chronic kidney disease are at high risk for cardiovascular events including stroke, PR As well as complications from infections, therefore immunizations are important The best way to monitor kidney function is through blood and urine test You should have these test done periodically If it is best if you complete the test a week or 2 before your visit with your primary care or children's institution attendant So that the most recent data can be discussed at your visit You should keep accurate medication lists The use of nonsteroidal anti-inflammatory drugs (NSAIDS) should be avoided and cautioned The best diet for people with hypertension and chronic kidney disease include balanced Mediterranean style diet, or DASH Which limit sodium intake below 2000 mg a day, limiting carbohydrate intake under 250 g a day and avoiding simple sugars and sweets Limit consumption of alcohol Caffeine in moderation such as 1-2 cups of regular coffee a day is okay Of note, some information is being carried forward from prior records for informational purposes only and is being cited so that efficiency, safety and quality of the patient's care is not compromised This note was prepared using voice recognition software and direct typing Please excuse inadvertent windsmith or typing errors, or uncorrected word substitutions Although every attempt has been made by the provider to proofread this document, occasional misspellings and typographical errors may still be present Due to the previous pandemic, and the use of personal protective equipment (PPE) This may decrease voice recognition accuracy Inadvertent windsmith errors may occur 09/19/2023 Vitamin D deficiency, unspecified (ICD-10 - E55.9) Acute Concerns/Problem List: 09/19/2023 Chronic conditions are stable Continue SGLT, Mounjaro and metformin Abdomen x-ray for constipation Linzess Screening measures discussed Will see her back in the fall for [facility] We discussed in detail the management of diabetes mellitus. Emphasis was paid on nutrition, low carbohydrate diet with good fat and protein sources, fruits and vegetables was discussed. Exercise was recommended. Incorporation of daily walking into a routine was discussed. A pedometer goal of 10,000 steps was discussed. Management of diabetes mellitus along with medications to treat the condition was discussed. Importance of diabetic foot exam, diabetic eye exam, urine microalbumin analysis annually was discussed. Side effects of diabetic medications were discussed again. Patient agrees to take medications as prescribed and comply with lifestyle modifications. Chronic kidney disease is usually silent Typical causes include diabetes and high blood pressure as well as dehydration If you have these issues, please make sure that there tightly controlled Ask your PCP what your blood pressure and hemoglobin A1c target should be in no your numbers Blood pressure recordings and sugar recordings should also be discussed Chronic kidney disease are at high risk for cardiovascular events including stroke, PR As well as complications from infections, therefore immunizations are important The best way to monitor kidney function is through blood and urine test You should have these test done periodically If it is best if you complete the test a week or 2 before your visit with your primary care or children's institution attendant So that the most recent data can be discussed at your visit You should keep accurate medication lists The use of nonsteroidal anti-inflammatory drugs (NSAIDS) should be avoided and cautioned The best diet for people with hypertension and chronic kidney disease include balanced Mediterranean style diet, or DASH Which limit sodium intake below 2000 mg a day, limiting carbohydrate intake under 250 g a day and avoiding simple sugars and sweets Limit consumption of alcohol Caffeine in moderation such as 1-2 cups of regular coffee a day is okay Of note, some information is being carried forward from prior records for informational purposes only and is being cited so that efficiency, safety and quality of the patient's care is not compromised This note was prepared using voice recognition software and direct typing Please excuse inadvertent windsmith or typing errors, or uncorrected word substitutions Although every attempt has been made by the provider to proofread this document, occasional misspellings and typographical errors may still be present Due to the previous pandemic, and the use of personal protective equipment (PPE) This may decrease voice recognition accuracy Inadvertent windsmith errors may occur 09/19/2023 Constipation (ICD-10 - K59.00) Acute Concerns/Problem List: 09/19/2023 Chronic conditions are stable Continue SGLT, Mounjaro and metformin Abdomen x-ray for constipation Linzess Screening measures discussed Will see her back in the fall for [facility] We discussed in detail the management of diabetes mellitus. Emphasis was paid on nutrition, low carbohydrate diet with good fat and protein sources, fruits and vegetables was discussed. Exercise was recommended. Incorporation of daily walking into a routine was discussed. A pedometer goal of 10,000 steps was discussed. Management of diabetes mellitus along with medications to treat the condition was discussed. Importance of diabetic foot exam, diabetic eye exam, urine microalbumin analysis annually was discussed. Side effects of diabetic medications were discussed again. Patient agrees to take medications as prescribed and comply with lifestyle modifications. Chronic kidney disease is usually silent Typical causes include diabetes and high blood pressure as well as dehydration If you have these issues, please make sure that there tightly controlled Ask your PCP what your blood pressure and hemoglobin A1c target should be in no your numbers Blood pressure recordings and sugar recordings should also be discussed Chronic kidney disease are at high risk for cardiovascular events including stroke, PR As well as complications from infections, therefore immunizations are important The best way to monitor kidney function is through blood and urine test You should have these test done periodically If it is best if you complete the test a week or 2 before your visit with your primary care or children's institution attendant So that the most recent data can be discussed at your visit You should keep accurate medication lists The use of nonsteroidal anti-inflammatory drugs (NSAIDS) should be avoided and cautioned The best diet for people with hypertension and chronic kidney disease include balanced Mediterranean style diet, or DASH Which limit sodium intake below 2000 mg a day, limiting carbohydrate intake under 250 g a day and avoiding simple sugars and sweets Limit consumption of alcohol Caffeine in moderation such as 1-2 cups of regular coffee a day is okay Of note, some information is being carried forward from prior records for informational purposes only and is being cited so that efficiency, safety and quality of the patient's care is not compromised This note was prepared using voice recognition software and direct typing Please excuse inadvertent windsmith or typing errors, or uncorrected word substitutions Although every attempt has been made by the provider to proofread this document, occasional misspellings and typographical errors may still be present Due to the previous pandemic, and the use of personal protective equipment (PPE) This may decrease voice recognition accuracy Inadvertent windsmith errors may occur Plan Of Treatment Medication Medication Name Sig Start Date Stop Date Notes Atorvastatin Calcium 20 MG Tablet TAKE 1 TABLET BY MOUTH EVERY DAY Orally Once a day; Duration: 90 days Linzess 145 MCG Capsule [address] 30 minutes before the first meal of the day on an empty stomach Orally Once a day; Duration: 30 days Mounjaro 5 MG/0.5ML Solution Pen-injector 5mg Subcutaneous weekly; Duration: 30 days Next Appt Details Provider Name:SHAREE GORDON, 03/31/2025 10:30:00 AM, [address] [facility], [facility] [address], [place], [id number], History and Physical Notes * HPI (History of Present Illness) Category Sub-Category Detail Notes Category Not es Constitutional Patient is here for Chronic Disease Management follow-up visit Patient seen and examined. Full past medical history, social history, family history, allergies and current medications were reviewed and updated. Acute Concerns/Problem List: 09/19/2023 Daughter states that x1 week ago she was dealing with constipation and Miralax was not working for her, so she bought Prunes which she made a shake for her with Papaya, which worked, but now she is experiencing this abdominal pain, nausea, and diarrhea Denies fever, hematochezia, vomiting, chest pain, palpitations, unintentional wt loss, or night sweats. No acute concerns at this visit. Patient is s/p left eye surgery due to glaucoma per daughter. 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, GSSS for potential hours, now gets 11 hrs weekly Her health care proxy is her sister, (Oleksandr) who takes care of her at home Healthcare proxy and MOLST filed other Past history that includes diabetes, hyperlipidemia, mild dementia recently evaluated for cardiac evaluation by independent sales representative Ash Apparently patient was in the [place] and was noted to have apparent PVD and CHF Because of that she was started on spironolactone, Plavix and anticoagulation There are obviously no records available from that medical evaluation and then she returned to [facility] In these medications were discontinued by PCP She does have that some claudication bilaterally with walks she otherwise denies any shortness of breath rotations or syncope Cardiology is Monitoring and ordering lower extremity ultrasounds to assess circulation as well as echocardiograms She recently saw her ethologist treated her for infection of the left foot with Keflex She still has an area in between the fourth and fifth toes that seems to be tinea related Has not tried any antifungal creams Would greatly benefit from diabetic shoes and insertsAs well as for her neuropathy She is currently on metformin as well as Farxiga for her diabetes We will likely add on a GLP-1 to help with some weight loss as well as further A1c reduction and likely cut her metformin by 50% Acute hospitalizations Patient was evaluated at [facility] on December 26 2022 Past history that is significant for Alzheimer's dementia, diabetes, and others as mentioned per previous notes Presented to the emergency department with her sister secondary to altered mental status and lethargy Apparently patient woke up in the middle of the night and went to use the bathroom and she peed on the floor instead of the toilet Patient has had preceding symptoms such as congestion and cough There was no chest pain or shortness of breath vomiting or diarrhea Low-grade temperature was present ER work-up was fairly comprehensive including an unremarkable chest x-ray, urinalysis No electrolyte abnormalities EKG unremarkable She did however test positive for COVID She was started on Paxlovid COVID MRNA x 3 Vax Patient was [facility] in [facility] ED [facility] Patients daughter reports they think she was dizzy in the morning. Was then found to have sleep apnea. Doing much better on CPAP she was admitted on September 25, 2021, and discharged on September 28, 2021 at [facility] Who presented to the emergency department with lethargy, encephalopathy, unsteady gait and fever Diagnosed with Covid, as well as JUAN F Acute metabolic encephalopathy likely secondary to viral illness Does not terribly hypoxic however we did have some tachypnea and Was put on antivirals Chest x-ray did not show any superimposed infiltrate or infection Sent home on supportive care Did not require supplemental oxygen Sent home with home PT Did improve clinically Creatinine did improve back to baseline Comprehensive labs 07/2023 CBC is stable Hemoglobin A1c of 6.9 which is age-appropriate Electrolytes renal function LFTs are stable Creatinine 1.03, GFR 57 Total cholesterol 222, LDL 134, HDL 66, triglycerides 113 Vitamin D 26 TSH 0.9 UA with glycosuria Health maintenance she has recieved 3 MRNA COVID Vax Colonoscopy screening February 2020 Recommending five-year surveillance There were polyps that were resected. Recommendation for 5 year surveilance Mammography 2023 COVID MRNA x 3 RSV discussed Flu 2023: 01/2023 DM Opho: 07/2023 DM Podiatry: 07/2023 [facility] Examination Category Sub-Category Detail Notes Category Not es General Examination GENERAL APPEARANCE: Pt is se ated in exam room in chair, in no acute distress, well developed, well nourished HEAD: normocephalic, atrau matic EYES: pupils equal, round, reactive to light and accommodation EARS: normal THROAT: clear NECK/THYROID: neck supple, full ra nge of motion, no cervical lymphadenopathy HEART: no murmurs, regular rate and rhythm, S1, S2 normal LUNGS: clear to auscultatio n bilaterally ABDOMEN: normal, bowel sounds present, soft, nondistended NEUROLOGIC: nonfocal, motor stre ngth normal upper and lower extremities, sensory exam intact SKIN: no suspicious lesion s, warm and dry EXTREMITIES: no clubbing, cyanosi s, or edema PSYCH: Pt is alert, but mazariegos s not speak throughout interview, she follows all commands and is cooperative with exam. ORAL CAVITY: mucosa moist Progress Notes * JEANNETTE DECKER DDOB :1945 (79 yo F)Acc No.[id number]:09/19/2023 Progress Notes Patient: Bill CHO JEANNETTE SANTANA Roni Provider: Patience GORDON NP :[id number] A ge:77 Y S ex:Female Date:09/19/2023 Address:[address] [place] [address] Subjective: * Chief Complaints: * HPI: C onstitutional: Patient is here for Chronic Disease Management follow-up visit Patient seen and examined. Full past medical history, social history, family history, allergies and current medications were reviewed and updated. Acute Concerns/Problem List: 09/19/2023 Daughter states that x1 week ago she was dealing with constipation and Miralax was not working for her, so she bought Prunes which she made a shake for her with Papaya, which worked, but now she is experiencing this abdominal pain, nausea, and diarrhea Denies fever, hematochezia, vomiting, chest pain, palpitations, unintentional wt loss, or night sweats. No acute concerns at this visit. Patient is s/p left eye surgery due to glaucoma per daughter. 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, GSSS for potential hours, now gets 11 hrs weekly Her health care proxy is her sister, (Oleksandr) who takes care of her at home Healthcare proxy and MOLST filed other Past history that includes diabetes, hyperlipidemia, mild dementia recently evaluated for cardiac evaluation by independent sales representative Ash Apparently patient was in the [place] and was noted to have apparent PVD and CHF Because of that she was started on spironolactone, Plavix and anticoagulation There are obviously no records available from that medical evaluation and then she returned to [facility] In these medications were discontinued by PCP She does have that some claudication bilaterally with walks she otherwise denies any shortness of breath rotations or syncope Cardiology is Monitoring and ordering lower extremity ultrasounds to assess circulation as well as echocardiograms She recently saw her ethologist treated her for infection of the left foot with Keflex She still has an area in between the fourth and fifth toes that seems to be tinea related Has not tried any antifungal creams Would greatly benefit from diabetic shoes and insertsAs well as for her neuropathy She is currently on metformin as well as Farxiga for her diabetes We will likely add on a GLP-1 to help with some weight loss as well as further A1c reduction and likely cut her metformin by 50% Acute hospitalizations Patient was evaluated at [facility] on December 26 2022 Past history that is significant for Alzheimer's dementia, diabetes, and others as mentioned per previous notes Presented to the emergency department with her sister secondary to altered mental status and lethargy Apparently patient woke up in the middle of the night and went to use the bathroom and she peed on the floor instead of the toilet Patient has had preceding symptoms such as congestion and cough There was no chest pain or shortness of breath vomiting or diarrhea Low-grade temperature was present ER work-up was fairly comprehensive including an unremarkable chest x-ray, urinalysis No electrolyte abnormalities EKG unremarkable She did however test positive for COVID She was started on Paxlovid COVID MRNA x 3 Vax Patient was seen in the ED back [facility]ril [facility] fall Patients daughter reports they think she was dizzy in the morning. Was then found to have sleep apnea. Doing much better on CPAP she was admitted on September 25, 2021, and discharged on September 28, 2021 at [facility] Who presented to the emergency department with lethargy, encephalopathy, unsteady gait and fever Diagnosed with Covid, as well as JUAN F Acute metabolic encephalopathy likely secondary to viral illness Does not terribly hypoxic however we did have some tachypnea and Was put on antivirals Chest x-ray did not show any superimposed infiltrate or infection Sent home on supportive care Did not require supplemental oxygen Sent home with home PT Did improve clinically Creatinine did improve back to baseline Comprehensive labs 07/2023 CBC is stable Hemoglobin A1c of 6.9 which is age-appropriate Electrolytes renal function LFTs are stable Creatinine 1.03, GFR 57 Total cholesterol 222, LDL 134, HDL 66, triglycerides 113 Vitamin D 26 TSH 0.9 UA with glycosuria Health maintenance she has recieved 3 MRNA COVID Vax Colonoscopy screening February 2020 Recommending five-year surveillance There were polyps that were resected. Recommendation for 5 year surveilance Mammography 2023 COVID MRNA x 3 RSV discussed Flu 2022: 01/2023 DM Opho: 07/2023 DM Podiatry: 07/2023 [facility]. * ROS: A ll Other Systems: Review of Systems (ROS) A ll others negative except those mentioned in HPI. * Medications: T akingMounjaro 5 MG/0.5ML Solution Pen-injector 5mg Subcutaneous weekly Clotrimazole 1 % Cream 1 application Externally Twice a day Vitamin B12 100 MCG Tablet 1 tablet Orally Once a day Folic Acid 1 MG Tablet 1 tablet Orally Once a day Vitamin D3 125 MCG (5000 UT) Capsule 1 capsule Orally Once a day CeleBREX 200 MG Capsule 1 capsule with food Orally Once a day Farxiga 10 MG Tablet 1 tablet Orally Once a day Mounjaro 2.5 MG/0.5ML Solution Pen-injector 2.5mg Subcutaneous weekly FreeStyle Lite - Device as directed in vitro dx e11.9 twice daily FreeStyle Lancets - Miscellaneous USE TWICE DAILY dx e11.9 FreeStyle Test - Strip as directed dxe11.9 In Vitro twice daily metFORMIN HCl 500 MG Tablet TAKE 1 TABLET BY MOUTH TWICE DAILY WITH A MEAL Linzess 145 MCG Capsule 1 capsule at least 30 minutes before the first meal of the day on an empty stomach Orally Once a day Atorvastatin Calcium 20 MG Tablet TAKE 1 TABLET BY MOUTH EVERY DAY Orally Once a day Taking Mounjaro 5 MG/0.5ML Solution Pen- injector 5mg Subcutaneous weekly Taking Clotrimazole 1 % Cream 1 application Externally Twice a day Taking Vitamin B12 100 MCG Tablet 1 tablet Orally Once a day Taking Folic Acid 1 MG Tablet 1 tablet Orally Once a day Taking Vitamin D3 125 MCG (5000 UT) Capsule 1 capsule Orally Once a day Taking CeleBREX 200 MG Capsule 1 capsule with food Orally Once a day Taking Farxiga 10 MG Tablet 1 tablet Orally Once a day Taking Mounjaro 2.5 MG/0.5ML Solution Pen-injector 2.5mg Subcutaneous weekly Taking FreeStyle Lite - Device as directed in vitro dx e11.9 twice daily Taking FreeStyle Lancets - Miscellaneous USE TWICE DAILY dx e11.9 Taking FreeStyle Test - Strip as directed dxe11.9 In Vitro twice daily Taking metFORMIN HCl 500 MG Tablet TAKE 1 TABLET BY MOUTH TWICE DAILY WITH A MEAL Taking Linzess 145 MCG Capsule 1 capsule at least 30 minutes before the first meal of the day on an empty stomach Orally Once a day Taking Atorvastatin Calcium 20 MG Tablet TAKE 1 TABLET BY MOUTH EVERY DAY Orally Once a day Objective: * Examination: G eneral Examination: GENERAL APPEARANCE: Anna bermudez is seated in exam room in chair, in no acute distress, well developed, well nourished. HEAD: n ormocephalic, atraumatic. EYES: p upils equal, round, reactive to light and accommodation. EARS: n ormal. ORAL CAVITY: m ucosa moist. THROAT: c lear. NECK/THYROID: n lety supple, full range of motion, no cervical lymphadenopathy. SKIN: n o suspicious lesions, warm and dry. HEART: n o murmurs, regular rate and rhythm, S1, S2 normal.? LUNGS: c lear to auscultation bilaterally. ABDOMEN: n ormal, bowel sounds present, soft, nondistended.? EXTREMITIES: n o clubbing, cyanosis, or edema. NEUROLOGIC: n onfocal, motor strength normal upper and lower extremities, sensory exam intact. PSYCH: Anna bermudez is alert, but does not speak throughout interview, she follows all commands and is cooperative with exam. Assessment: * Assessment: 1. E ssential (primary) hypertension - I10 2 . T ype 2 diabetes mellitus with complication, unspecified whether skilled nursing insulin use - E11.8 3 . H yperlipidemia, unspecified - E78.5 4 . H eart failure, unspecified HF chronicity, unspecified heart failure type - I50.9 5 . S tage 3a chronic kidney disease - N18.31? 6. H ypothyroidism, unspecified type - E03.9 7 . V itamin D deficiency, unspecified - E55.9 8 . C onstipation - K59.00 Acute Concerns/Problem List: 09/19/2023 Chronic conditions are stable Continue SGLT, Mounjaro and metformin Abdomen x-ray for constipation Linzess Screening measures discussed Will see her back in the fall for [facility] We discussed in detail the management of diabetes mellitus. Emphasis was paid on nutrition, low carbohydrate diet with good fat and protein sources, fruits and vegetables was discussed. Exercise was recommended. Incorporation of daily walking into a routine was discussed. A pedometer goal of 10,000 steps was discussed. Management of diabetes mellitus along with medications to treat the condition was discussed. Importance of diabetic foot exam, diabetic eye exam, urine microalbumin analysis annually was discussed. Side effects of diabetic medications were discussed again. Patient agrees to take medications as prescribed and comply with lifestyle modifications. Chronic kidney disease is usually silent Typical causes include diabetes and high blood pressure as well as dehydration If you have these issues, please make sure that there tightly controlled Ask your PCP what your blood pressure and hemoglobin A1c target should be in no your numbers Blood pressure recordings and sugar recordings should also be discussed Chronic kidney disease are at high risk for cardiovascular events including stroke, PR As well as complications from infections, therefore immunizations are important The best way to monitor kidney function is through blood and urine test You should have these test done periodically If it is best if you complete the test a week or 2 before your visit with your primary care or children's institution attendant So that the most recent data can be discussed at your visit You should keep accurate medication lists The use of nonsteroidal anti-inflammatory drugs (NSAIDS) should be avoided and cautioned The best diet for people with hypertension and chronic kidney disease include balanced Mediterranean style diet, or DASH Which limit sodium intake below 2000 mg a day, limiting carbohydrate intake under 250 g a day and avoiding simple sugars and sweets Limit consumption of alcohol Caffeine in moderation such as 1-2 cups of regular coffee a day is okay Of note, some information is being carried forward from prior records for informational purposes only and is being cited so that efficiency, safety and quality of the patient's care is not compromised This note was prepared using voice recognition software and direct typing Please excuse inadvertent windsmith or typing errors, or uncorrected word substitutions Although every attempt has been made by the provider to proofread this document, occasional misspellings and typographical errors may still be present Due to the previous pandemic, and the use of personal protective equipment (PPE) This may decrease voice recognition accuracy Inadvertent windsmith errors may occur. Plan: * Treatment: * Procedure Codes: 9 9199 NO SHOW OFFICE VISIT Billing Information: * Procedure Codes: 96950 NO SHOW OFFICE VISIT. Care Plan Details* * Electronic signature of LEONARDO GORDON on 03/13/2025 at 07:01 PM EST Sign off status: Pending * Provider: Patience GORDON NP Date: 0 09/19/2023 Generated for Stan yao/Esther/Naun on: 05/13/2024 07:01 PM EST
--- OUTSIDE RECORDS SUMMARY | 2024-10-28 10:30 | XMS_ITS ---
Author Organization [facility] Address [address] [place] [address] Care Team Providers Care Lumber Salvager Name Role Phone Kosta Paula Primary Care Provider Unavailabl Lul Aggarwal Unavailable [phone] Encounters Encounter Location Date Provider Diagnosis [address] [address] 10/28/2024 Lul Ross Plan Of Treatment Next Appt Details Provider Name:Lul Ross , 05/15/2025 03:00:00 PM, [address] [place] [address], [phone], Progress Notes * April LAWSONDOB: (79 yo F)Acc No.[id number]:10/28/2024 Progress Note Patient: April QUEVEDO Provider: Migue Ross DPM :1945 A ge:79 Y S ex:Female Date:10/28/2024 Address:[address] [place] [phone] Pcp:Kosta Paula Subjective: * Chief Complaints: * * Medical History: Objective: * Vitals: Assessment: Plan: * Treatment: * Images: * The named appointment provid er may or may not be the originator of this progress note, and it is not deemed complete until electronically signed by the appointment provider. Sign off status: Pending * Provider: Migue Ross DPM Date: 0 10/28/2024 Generated for Stan yao/Esther/Naun on: 05/13/2024 07:00 PM EST
[2025-03-13 13:43] VITALS: BP 114/78; PULSE 79; O2SAT 99; BMI 32.5
--- NOTE | 2025-03-13 13:43 | MHC.OFFVIS ---
Vital Signs 03/13/25 13:43 Height 5 ft 1 in Weight 172 lb 2 oz BMI 32.5 BP 114/78 Blood Pressure Location Rt brachial Position Sitting Pulse 79 Pulse Source Pulse Oximeter Pulse Oximetry (%) 99 Oxygen Delivery Method Room Air Intake Visit Reasons: 3 month F/U Intake Note: Patient presents follow up TORRES medication. Labs/Compliance in chart(88/90days, >=4hrs-47%, Average Usgae-3hr 54min, IPAP-18cm, EPAP-14cm, Med Leaks-3.1, AHI-3.1) Animal Cruelty Investigator Required: Yes Animal Cruelty Investigator Name: Daughter Accompanied by: Daughter Allergies No Known Allergies Allergy (Verified 03/13/25 13:46) HPI Comments Details: 79-yr-old [place] speaking female presents for a f/u visit of TORRES and Movement Disorder. Her sister is here and helps with history today along with credit operations specialist on IPAD. 12/2024 PSG c/w AHI was 15, REM AHI is 26/hr and oxygen nadirs to 82%, supplemental o2 2 liters used, O2< 88% for 5 min. Schedule pt for in lab titration to determine ideal pressures for therapy and assess supplemental need for Oxygen. 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 She started having difficulty with her memory and being more forgetful for years now per her sister. She goes to bed at 10pm, and uses her BIPAP every night however she forgets to put it back on after her bathroom break, as she is confused in upon returning from the bathroom. Her sister helps her put it on at bedtime prior to going to sleep, however in the middle of the night, she struggles to figure out how to put it back on her face. Memory is poor she forgets she has eaten a meal, forgets words, has difficulty with word recall and processing. She gets lost in conversations, needs constant redirection, reminders. She needs support with all her ADLs, is not very active, will walk from one room to another in the home and c/o shortness of breath, does not like to climb stairs.She uses her walker and can climb stairs slowly. Uses her sister's arm to ambulate. She is on Mounjaro for 6 months and is unable to lose weight 171lbs. Has a good diet. Mood is depressed, looks in the mirror and will stand there for a long time. She likes playing dominoes. Reads the bible and goes to latter day 3x per week. She denies drooling, dysphagia, constipation, sleep difficulties, parasomnias, tremors. [facility] Medical History Diabetes Depression Family History Father Cancer Mother HTN (hypertension) Social History Alcohol intake: never Patient Tobacco Use Status: Never used Tobacco Review of Systems Neuro Reports confusion (though could be language barrier) Psych Reports confusion (though could be language barrier) Physical Exam Vital Signs: Last Vital Signs Pulse 79 03/13/25 13:43 BP 114/78 03/13/25 13:43 Pulse Ox 99 03/13/25 13:43 Oxygen Delivery Method Room Air 03/13/25 13:43 BMI result Body Mass Index 32.5 Const General: cooperative, comfortable, no acute distress and confusion (though could be language barrier) Nutritional Appearance: overweight Orientation/consciousness: confusion (though could be language barrier) Limitations: language barrier (bulgarian speaking) HEENT Face and sinus: Yes face symmetric Teeth and gingiva: other (mallampti score is 3) Eyes Pupils: Equal, round and reactive pupils present Neck Neck: Yes full ROM Resp Effort & Inspection: normal respiratory effort and able to speak in complete sentences Neuro Other: Alert and responding appropriately Mild facial expression and decreased blink No tremors FFM decreased mildly R>L Foot taps - decreased amanda R>L Slow to stand, decreased arm swing, starts steps, steady gait, steady turn General: confusion (though could be language barrier) Cranial nerves: Yes Equal, round and reactive pupils present, Yes Midline tongue present, Yes Ability to bilaterally rotate head present and Yes Ability to bilaterally elevate shoulders present Motor exam (neuro): Abnormal motor strength present and Abnormal muscle tone present Psych Appearance: well kempt Speech and movement: Slowed movement present (Neuro) Attitude: cooperative Orientation What is the (year) (season) (date) (day) (month)?: year, season, day and month Where are we (state) (county) (town or city) (hospital) (floor)?: state, county and floor Registration Name of 3 unrelated objects clearly and slowly, then ask patient to repeat all 3 of them. (1st repeat determines score. Make sure they can repeat all three): object 1, object 2 and object 3 Attention & Calculation (CHOOSE ONE) Spell WORLD backwards (DLROW): 3 letters (ndo) Recall Ask patient to repeat the 3 items from question #3.: object 1 and object 2 Language Show patient a wristwatch & ask what it is. Repeat for pencil.: watch and pencil Ask the patient to repeat the phrase 'No ifs, ands, or buts' after you.: correct (language barrier) Ask the patient to 'take a piece of paper with their right hand' 'fold paper in half' 'place paper on floor': take paper in right hand, fold paper in half and place paper on floor Print the sentence 'CLOSE YOUR EYES' on a piece. If patient actually closes eyes then score.: followed written direction Score Score: 22 Results Reviewed Results Reviewed: 12/2024 PSG c/w AHI was 15, REM AHI is 26/hr and oxygen nadirs to 82%, supplemental o2 2 liters used, O2< 88% for 5 min. Schedule pt for in lab titration to determine ideal pressures for therapy and assess supplemental need for Oxygen. MR/MR head/brain wo con IMPRESSION: Diffuse cerebral atrophy and findings consistent with small vessel ischemic disease of the white matter as described. Assessment & Plan Assessment & Plan (1) Severe obstructive sleep apnea: Comment: bipap nasal pillows requested with chin straps Code(s): G47.33 - Obstructive sleep apnea (adult) (pediatric) Category: Medical (2) Extrapyramidal and movement disorder: Comment: ?parkinsons Code(s): G25.9 - Extrapyramidal and movement disorder, unspecified Category: Medical (3) Forgetfulness: Comment: MRI reviwed MMSE is though language barrier so uncertain of validity Code(s): R68.89 - Other general symptoms and signs Category: Medical (4) Nocturnal hypoxemia: Comment: 2 liters of o2 needed supplemental needs titration <88% for 5 min Code(s): G47.34 - Idiopathic sleep related nonobstructive alveolar hypoventilation Category: Medical Plan Severe TORRES on bipap therapy, PSG reviwed with pt. continue BiPAP, as patient continues to improve quality of her sleep. -Will assess for supplemental oxygen therapy with titration in lab. Patient is encouraged to use BIPAP > than 4 hours for therapeutic results, and optimizing benefits, reduction of risks associated with late onset of dementia. MMSE completed today. though uncertain due to language barrier. MRI Cognitive impairment, reviewed MRI with pt today, ischemic vessel disease and diffuse global atrophy, white matter disease. Continue Memantine ER 28mg po daily. Continue Donepezil 10mg po QAM. Movement disorder symptoms, continue carbidopa levodopa 25-100 mg 1 tab BID. Patient encouraged to engage in regular cognitive and social stimulating activities, adult daycare program may be a good option. Patient encouraged to increase regular physical activity by walking 10min to 15min daily as tolerable. Pt education provided today re: Kisunla and Leqembi therapies for MCI. FH+ for dementia, pt will need to review options with family, and decide upon returning from [facility] Gene Testing and labs to complete work up for infusions to reduce ARIA / tau burden. f/u in 3 months for compliance with supplemental oxygen use 2liters with nasal pillows n30i and chin straps. Patient Instructions: Sleep Hygiene provided: set a scheduled bedtime and wake time to help regulate the circadian rhythm and balance the release of pituitary hormones. Sleep in a dark room, temperatures below 68 degrees, and no devices n bed. Limit caffeinated products 6 hours prior to bed, and limit fluids 2-4 hours prior to bed. Gentle night yoga, diffusing essential oils, and playing soft music can be relaxing. Coding Level of Care Code Est Pt Level 4 (23693) Diagnoses Severe obstructive sleep apnea G47.33 Extrapyramidal and movement disorder G25.9 Forgetfulness R68.89 Nocturnal hypoxemia G47.34
--- OUTSIDE RECORDS SUMMARY | 2025-03-13 19:01 | XMS_ITS | Patient Health Record ---
Author Organization [facility] [address] Address [address] [place] [address] Care Team Providers Care Spinning Frame Changer Name Role Phone SHAREE GORDON Unavailable [phone] Allergies No Known Allergies Results Component Value Reference Range Flag Notes CBC WITH AUTO DIFFERENTIAL Reviewed date:08/13/2024 09:45:06 AM Interpretation: Performing Lab: Notes/Report: WBC 7.0 4.8-10.8 K/mcL RBC 4.10 3.80-4.80 M/mcL Hemoglobin 11.0 11.5-16.0 g/dL L Hematocrit 35.6 35.0-47.0 % MCV 87.3 79.0-98.0 FL MCH 27.0 27.0-32.0 pcg MCHC 30.9 32.0-37.0 g/dL L RDW 14.0 11.0-15.0 % Platelets 302 130-400 [...] K/mcL Immature Granulocytes Absolute 0.02 0.00-0.03 K/mcL LIPID PANEL WITH REFLEX TO D IRECT LDL Reviewed date:08/13/2024 11:14:22 AM Interpretation: Performing Lab: Notes/Report: Cholesterol 160 0-200 mg/dL Triglycerides 131 0-150 mg/dL HDL 69 >=40 mg/dL LDL Calculated 65 0-100 mg/dL VLDL Cholesterol Rogelio 26.2 Non HDL Chol. (LDL+VLDL) 91 <145 mg/dL Chol/HDL Ratio 2.3 0.0-4.4 VITAMIN D 25 HYDROXY Reviewed date:08/13/2024 11:14:22 AM Interpretation: Performing Lab: Notes/Report: Vit D, 25-Hydroxy 30.1 30.0-80.0 ng/mL THYROID STIMULATING HORMONE Reviewed date:08/13/2024 11:14:22 AM Interpretation: Performing Lab: Notes/Report: TSH 2.02 0.40-4.00 mcIU/mL COMPREHENSIVE METABOLIC PANE L Reviewed date:08/13/2024 11:14:22 AM Interpretation: Performing Lab: Notes/Report: Sodium 138 133-145 mmol/L Potassium 4.4 3.5-5.5 mmol/L Chloride 105 96-110 mmol/L CO2 27 21-32 mmol/L Anion Gap 6 3-11 Glucose 108 70-100 mg/dL H BUN 19 5-25 mg/dL Creatinine 0.84 0.50-1.10 mg/dL eGFR 72 >=60 mL/min/1.73m2 Calcul ation based on the?Chronic Kidney Disease Epidemiology Collaboration (CKD-EPI) equation refit?without adjustment for race. BUN/Creatinine Ratio 22.6 Calcium 9.4 8.5-10.5 mg/dL AST (SGOT) 17 10-42 unit/L ALT (SGPT) 32 10-60 unit/L Alkaline Phosphatase 91 42-121 unit/L Total Protein 7.4 6.0-8.0 g/dL Albumin 3.9 3.2-5.0 g/dL Total Bilirubin 0.3 0.0-1.4 mg/dL HEMOGLOBIN A1C Reviewed date:08/13/2024 12:29:38 PM Interpretation: Performing Lab: Notes/Report: Hemoglobin A1C 6.8 <6.5 % H Mean Bld Glu Estim. 148 URINALYSIS WITH REFLEX MICRO SCOPIC Reviewed date:08/13/2024 04:55:18 PM Interpretation: Performing Lab: Notes/Report: Specific [place] Urine 1.006 1.003-1.030 pH, Urine 8.0 5.0-8.0 pH Leukocytes, Urine Negative Negative Nitrite, Urine Negative Negative Protein, Urine Negative <=Trace mg/dL Glucose, Urine Negative Negative mg/dL Ketones, Urine Negative Negative mg/dL Urobilinogen, Urine 0.2 0.2-1.0 mg/dL Bilirubin, Urine Negative Negative Blood, Urine Negative Negative CULTURE URINE Reviewed date:08/14/2024 07:46:44 AM Interpretation: Performing Lab: Notes/Report: Culture, Urine No growth Reason For Referral Reason evaluate & treat Diagnosis 1 Colon cancer screeni maximilian (Z12.11) Referral Organization [facility] [address] Referring Provider First Name GAVI Referring Provider Last Name FILIBERTO Referring Provider Speciality Internal M edicine Referred Provider Specialty Gastroentero logy General Notes Edda Rocha 12/26 03:35:12 PM >faxed to lakeisha [phone], p. Clinical Notes Librado Benavides 12/30 09:23:56 AM >03/12/[address] Yanez Referral Priority Routine Medications Medication SIG (Take, Route, Frequency, Duration) Notes Start Date End Date Status Clotrimazole 1 % Cream 1 application Ext ernally Twice a day; Duration: 30 days Active Atorvastatin Calcium 20 MG Tablet TAKE 1 TABLET BY MOUTH EVERY DAY Orally Once a day; Duration: 90 days Active Folic Acid 1 MG Tablet 1 tablet Orally O nce a day; Duration: 90 days Active Vitamin B12 100 MCG Tablet 1 tablet Oral ly Once a day; Duration: 90 days Active metFORMIN HCl 500 MG Tablet TAKE 1 TABLE T BY MOUTH TWICE DAILY WITH A MEAL; Duration: 90 Active FreeStyle Lite Test - Strip USE TO TEST TWICE DAILY DIRECTED; Duration: 50 Active Mounjaro 5 MG/0.5ML Solution Pen-injector 5mg Subcutaneous weekly; Duration: 30 days Active Mounjaro 5 MG/0.5ML Solution Pen-injector ADMINISTER 5 MG UNDER THE SKIN WEEKLY; Duration: 28 Active FreeStyle Lancets - Miscellaneous USE TWICE DAILY dx e11.9; Duration: 30 days Active Linzess 145 MCG Capsule [address] 30 minutes before the first meal of the day on an empty stomach Orally Once a day; Duration: 30 days Active CeleBREX 200 MG Capsule 1 capsule with f ood Orally Once a day; Duration: 14 days 05/10/2022 Active Vitamin D3 125 MCG (5000 UT) Capsule 1 capsule Orally Once a day; Duration: 90 days Active FreeStyle Lite - Device as directed in v itro dx e11.9 twice daily; Duration: 30 days Active Farxiga 10 MG Tablet 1 tablet Orally Onc e a day; Duration: 90 days Active Mounjaro 7.5 MG/0.5ML Solution Auto-injector 7.5mg Subcutaneous weekly; Duration: 30 days 08/12/2024 Active Immunizations Vaccine Route Administration Date Status Comme nts influenza IM Intramuscular 02/15/2022 Administered Influenza, high dose seasonal IM Intramuscular 01/25/2023 Administered Social History Tobacco Use: Social History Observation Description Date Details (start date - stop date) Never Smoker NA - NA Social History Drugs/Alcohol: Social Info Question Answer Notes Drugs Have you used drugs other than those for medical reasons in the past 12 months? No Tobacco Use: Social Info Question Answer Notes Tobacco Use/Smoking Are you a nonsmoker Additional Details Category Social Info Options Details Drugs/Alcohol: Do you smoke marijuana? De nies Do you drink alcohol? No Problems Problem Type SNOMED Code ICD Code Onset Dates Problem Status W/U Status Risk Notes Problem Hypothyroidism (03642496) Other specified hypothyroidism (E03.8) Active confirmed Problem Vitamin D deficiency (45494957) Vitamin D deficiency, unspecified (E55.9) Active confirmed Problem Hyperlipidemia (34851725) Hyperlipidemia, unspecified (E78.5) Active confirmed Problem Dementia (38126755) Dementia in other diseases classified elsewhere without behavioral disturbance (F02.80) Active confirmed Problem Essential hypertension (09982260) Essential (primary) hypertension (I10) Active confirmed Problem Adult health examination (494464260) Encounter for general adult medical examination without abnormal findings (Z00.00) Active confirmed Problem 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) Type 2 diabetes mellitus with complication, unspecified whether oysterman insulin use (E11.8) Active confirmed Problem Depressive disorder (disorder) (91366073) Depression, unspecified depression type (F32.9) Active confirmed Problem Hypothyroidism (94990485) Hypothyroidism, unspecified type (E03.9) Active confirmed Problem Dementia (91948711) Dementia without behavioral disturbance, unspecified dementia type (F03.90) Active confirmed Problem Screening for malignant neoplasm of breast (934006408) Breast cancer screening by mammogram (Z12.31) Active confirmed Problem Peripheral artery disease (718342818) Peripheral artery disease (I73.9) Active confirmed Problem Chronic kidney disease stage 3A (074433989) Stage 3a chronic kidney disease (N18.31) Active confirmed Problem Chronic constipation (286638700) Chronic constipation (K59.09) Active confirmed Problem Heart failure (90057253) Heart failure, unspecified HF chronicity, unspecified heart failure type (I50.9) Active confirmed Problem Constipation (92622449) Constipation (K59.00) Active confirmed Vital Signs Heart Rate 79 /min 11/28/2024 Oximetry 98 % 11/28/2024 Blood pressure diastolic 80 mm Hg 11/28/2024 Height 60 in 11/28/2024 Blood pressure systolic 130 mm Hg 11/28/2024 Weight 167.7 lbs 11/28/2024 BMI 32.75 kg/m2 11/28/2024 Encounters Encounter Location Date Provider Diagnosis [facility] [address] [address] 08/12/2024 SHAREE GORDON Adult general medica l exam Z00.00 ; Encounter for screening for other disorder Z13.89 ; Encounter for screening for depression Z13.31 ; Advanced directives, counseling/discussion Z71.89 ; Essential (primary) hypertension I10 ; Type 2 diabetes mellitus with complication, unspecified whether oysterman insulin use E11.8 ; Hyperlipidemia, unspecified E78.5 ; Stage 3a chronic kidney disease N18.31 ; Hypothyroidism, unspecified type E03.9 and Constipation K59.00 [facility] [address] [address] 11/28/2024 SHAREE GORDON Essential (primary) hypertension I10 ; Type 2 diabetes mellitus with complication, unspecified whether halfway insulin use E11.8 ; Hyperlipidemia, unspecified E78.5 ; Stage 3a chronic kidney disease N18.31 ; Hypothyroidism, unspecified type E03.9 ; Constipation K59.00 and Encounter for examination of blood pressure without abnormal findings Z01.[address] [facility] [address] [place] [address] 12/26/2024 SHAREE GORDON [facility] [address] [facility] [address] [place] [address] 01/16/2025 SHAREE GORDON [facility] [address] [facility] [address] [place] [address] 02/06/2025 SHAREE GORDON Essential (primary) hypertension I10 Assessments Encounter Date Diagnosis (ICD Code) Assessment Notes Treatment Notes Treatment Clinical Notes Section Notes 08/12/2024 Encounter for screening for other disorder [...] and direct typing Please excuse inadvertent automatic profile shaper operator or typing errors, or uncorrected word substitutions Although every attempt has been made by the provider to proofread this document, occasional misspellings and typographical errors may still be present Due to the previous pandemic, and the use of personal protective equipment (PPE) This may decrease voice recognition accuracy Inadvertent automatic profile shaper operator errors may occur 08/12/2024 Adult general medical [...] and direct typing Please excuse inadvertent automatic profile shaper operator or typing errors, or uncorrected word substitutions Although every attempt has been made by the provider to proofread this document, occasional misspellings and typographical errors may still be present Due to the previous pandemic, and the use of personal protective equipment (PPE) This may decrease voice recognition accuracy Inadvertent automatic profile shaper operator errors may occur 11/28/2024 Essential (primary) hypertension (ICD-10 - I10) Acute Concerns/Problem List: 11/28/2024 Chronic conditions are stable Of note, some information is being carried forward from prior records for informational purposes only and is being cited so that efficiency, safety and quality of the patient's care is not compromised This note was prepared using voice recognition software and direct typing Please excuse inadvertent automatic profile shaper operator or typing errors, or uncorrected word substitutions Although every attempt has been made by the provider to proofread this document, occasional misspellings and typographical errors may still be present Due to the previous pandemic, and the use of personal protective equipment (PPE) This may decrease voice recognition accuracy Inadvertent automatic profile shaper operator errors may occur 02/06/2025 Essential (primary) hypertension (ICD-10 - I10) 11/28/2024 Type 2 diabetes mellitus with complication, unspecified whether halfway insulin use (ICD-10 - E11.8) Acute Concerns/Problem List: 11/28/2024 Chronic conditions are stable Of note, some information is being carried forward from prior records for informational purposes only and is being cited so that efficiency, safety and quality of the patient's care is not compromised This note was prepared using voice recognition software and direct typing Please excuse inadvertent automatic profile shaper operator or typing errors, or uncorrected word substitutions Although every attempt has been made by the provider to proofread this document, occasional misspellings and typographical errors may still be present Due to the previous pandemic, and the use of personal protective equipment (PPE) This may decrease voice recognition accuracy Inadvertent automatic profile shaper operator errors may occur 08/12/2024 Encounter for screening [...] and direct typing Please excuse inadvertent automatic profile shaper operator or typing errors, or uncorrected word substitutions Although every attempt has been made by the provider to proofread this document, occasional misspellings and typographical errors may still be present Due to the previous pandemic, and the use of personal protective equipment (PPE) This may decrease voice recognition accuracy Inadvertent automatic profile shaper operator errors may occur 08/12/2024 Advanced directives, counseling/discu [...] and direct typing Please excuse inadvertent automatic profile shaper operator or typing errors, or uncorrected word substitutions Although every attempt has been made by the provider to proofread this document, occasional misspellings and typographical errors may still be present Due to the previous pandemic, and the use of personal protective equipment (PPE) This may decrease voice recognition accuracy Inadvertent automatic profile shaper operator errors may occur 11/28/2024 Hyperlipidemia, unspecified (ICD-10 [...] and direct typing Please excuse inadvertent automatic profile shaper operator or typing errors, or uncorrected word substitutions Although every attempt has been made by the provider to proofread this document, occasional misspellings and typographical errors may still be present Due to the previous pandemic, and the use of personal protective equipment (PPE) This may decrease voice recognition accuracy Inadvertent automatic profile shaper operator errors may occur 11/28/2024 Stage 3a chronic [...] and direct typing Please excuse inadvertent automatic profile shaper operator or typing errors, or uncorrected word substitutions Although every attempt has been made by the provider to proofread this document, occasional misspellings and typographical errors may still be present Due to the previous pandemic, and the use of personal protective equipment (PPE) This may decrease voice recognition accuracy Inadvertent automatic profile shaper operator errors may occur 08/12/2024 Essential (primary) hypertension [...] and direct typing Please excuse inadvertent automatic profile shaper operator or typing errors, or uncorrected word substitutions Although every attempt has been made by the provider to proofread this document, occasional misspellings and typographical errors may still be present Due to the previous pandemic, and the use of personal protective equipment (PPE) This may decrease voice recognition accuracy Inadvertent automatic profile shaper operator errors may occur 08/12/2024 Type 2 diabetes mellitus with complication, unspecified whether halfway insulin use (ICD-10 - E11.8) Acute Concerns/Problem [...] and direct typing Please excuse inadvertent automatic profile shaper operator or typing errors, or uncorrected word substitutions Although every attempt has been made by the provider to proofread this document, occasional misspellings and typographical errors may still be present Due to the previous pandemic, and the use of personal protective equipment (PPE) This may decrease voice recognition accuracy Inadvertent automatic profile shaper operator errors may occur 11/28/2024 Hypothyroidism, unspecified type [...] and direct typing Please excuse inadvertent automatic profile shaper operator or typing errors, or uncorrected word substitutions Although every attempt has been made by the provider to proofread this document, occasional misspellings and typographical errors may still be present Due to the previous pandemic, and the use of personal protective equipment (PPE) This may decrease voice recognition accuracy Inadvertent automatic profile shaper operator errors may occur 11/28/2024 Constipation (ICD-10 - K59.00) Acute Concerns/Problem List: 11/28/2024 Chronic conditions are stable Of note, some information is being carried forward from prior records for informational purposes only and is being cited so that efficiency, safety and quality of the patient's care is not compromised This note was prepared using voice recognition software and direct typing Please excuse inadvertent automatic profile shaper operator or typing errors, or uncorrected word substitutions Although every attempt has been made by the provider to proofread this document, occasional misspellings and typographical errors may still be present Due to the previous pandemic, and the use of personal protective equipment (PPE) This may decrease voice recognition accuracy Inadvertent automatic profile shaper operator errors may occur 08/12/2024 Hyperlipidemia, unspecified (ICD-10 [...] and direct typing Please excuse inadvertent automatic profile shaper operator or typing errors, or uncorrected word substitutions Although every attempt has been made by the provider to proofread this document, occasional misspellings and typographical errors may still be present Due to the previous pandemic, and the use of personal protective equipment (PPE) This may decrease voice recognition accuracy Inadvertent automatic profile shaper operator errors may occur 08/12/2024 Stage 3a chronic [...] and direct typing Please excuse inadvertent automatic profile shaper operator or typing errors, or uncorrected word substitutions Although every attempt has been made by the provider to proofread this document, occasional misspellings and typographical errors may still be present Due to the previous pandemic, and the use of personal protective equipment (PPE) This may decrease voice recognition accuracy Inadvertent automatic profile shaper operator errors may occur 11/28/2024 Encounter for examination [...] and direct typing Please excuse inadvertent automatic profile shaper operator or typing errors, or uncorrected word substitutions Although every attempt has been made by the provider to proofread this document, occasional misspellings and typographical errors may still be present Due to the previous pandemic, and the use of personal protective equipment (PPE) This may decrease voice recognition accuracy Inadvertent automatic profile shaper operator errors may occur 08/12/2024 Hypothyroidism, unspecified type [...] and direct typing Please excuse inadvertent automatic profile shaper operator or typing errors, or uncorrected word substitutions Although every attempt has been made by the provider to proofread this document, occasional misspellings and typographical errors may still be present Due to the previous pandemic, and the use of personal protective equipment (PPE) This may decrease voice recognition accuracy Inadvertent automatic profile shaper operator errors may occur 08/12/2024 Constipation (ICD-10 - [...] and direct typing Please excuse inadvertent automatic profile shaper operator or typing errors, or uncorrected word substitutions Although every attempt has been made by the provider to proofread this document, occasional misspellings and typographical errors may still be present Due to the previous pandemic, and the use of personal protective equipment (PPE) This may decrease voice recognition accuracy Inadvertent automatic profile shaper operator errors may occur Plan Of Treatment Pending Test Test Name Order Date Mammogram 05/10/2022 25OH VITAMIN D 08/29/2018 25OH VITAMIN D 08/04/2022 25OH VITAMIN D 05/03/2023 25OH VITAMIN D 08/10/2023 CBC (COMPLETE BLOOD COUNT) 05/08/2020 CBC (COMPLETE BLOOD COUNT) 05/03/2023 CBC (COMPLETE BLOOD COUNT) 08/04/2022 CBC (COMPLETE BLOOD COUNT) 08/29/2018 CBC (COMPLETE BLOOD COUNT) 12/30/2020 COMPREHENSIVE METABOLIC PANEL 12/30/2020 COMPREHENSIVE METABOLIC PANEL 08/29/2018 COMPREHENSIVE METABOLIC PANEL 08/04/2022 COMPREHENSIVE METABOLIC PANEL 05/03/2023 COMPREHENSIVE METABOLIC PANEL 08/10/2023 COMPREHENSIVE METABOLIC PANEL 05/08/2020 HEMOGLOBIN A1C 05/08/2020 HEMOGLOBIN A1C 08/10/2023 HEMOGLOBIN A1C 05/03/2023 HEMOGLOBIN A1C 09/10/2020 HEMOGLOBIN A1C 12/30/2020 HEMOGLOBIN A1C 08/29/2018 HEMOGLOBIN A1C 08/04/2022 HEMOGLOBIN A1C 03/23/2021 LIPID PANEL 12/30/2020 LIPID PANEL 08/29/2018 LIPID PANEL 05/03/2023 LIPID PANEL 08/04/2022 LIPID PANEL 08/10/2023 LIPID PANEL 05/08/2020 MICROALBUMIN, URINE 03/23/2021 TSH 08/10/2023 TSH 05/03/2023 TSH 08/04/2022 TSH WITH REFLEX TO FT4 08/29/2018 URINALYSIS W/REFLEX CULTURE 01/11/2022 URINALYSIS W/REFLEX CULTURE 05/03/2023 URINALYSIS W/REFLEX CULTURE 08/10/2023 URINALYSIS, COMPLETE 08/29/2018 URINALYSIS, COMPLETE 05/08/2020 VITAMIN B12 08/29/2018 BNP (B -Type Natriuretic Peptide) 2020 CBC with Differential 08/10/2023 XR Abdomen 1 View 08/10/2023 COMPLETE URINALYSIS 08/04/2022 COMPLETE URINALYSIS 12/30/2020 Future Test Test Name Order Date COMPREHENSIVE METABOLIC PANEL 12/11/2020 HEMOGLOBIN A1C 12/11/2020 TSH 12/11/2020 BASIC METABOLIC PANEL 12/27/2021 HEMOGLOBIN A1C 12/27/2021 Next Appt Details Provider Name:SHAREE GORDON, 03/31/2025 10:30:00 AM, [address] [facility], [facility] [address], [place], [address], Insurance Providers Payer Name Payer Address Payer Phone Subscriber Number Group Number Insured Name Patient Relationship to Insured Coverage Start Date Coverage End Date [employer]Martine or Options [address] [place] [id number] JEANNETTE DECKER Self - patient is the insured Medical (General) History Medical History History ICD Code diabetes mellitus depression Surgical History Surgery Date(Month/Year) right shoulder surgey gallbaldder colonoscopy 10 years
--- OUTSIDE RECORDS SUMMARY | 2025-03-13 19:01 | XMS_ITS | Patient Health Record ---
Author Organization [facility] Address [address] [place] [address] Care Team Providers Care Ground Systems Engineer Name Role Phone Paula, Haydenmargie Primary Care Provider Lul Cook Unavailable [phone] Allergies No Known Allergies Results Component Value Reference Range Notes HEMOGLOBIN A1C (GLYCOHEMOGLO BIN) Reviewed date:01/20/2025 02:47:12 PM Interpretation: Performing Lab: Notes/Report: HEMOGLOBIN A1C % (HH) 6.8 Reason For Referral No Information Medications Medication SIG (Take, Route, Frequency, Duration) Notes Start Date End Date [facility] Not-Taking Mounjaro 2.5 MG/0.5ML Subcutaneous; Dura tion: 28 Days Active Escitalopram Oxalate 10 MG 1 tablet Orally Once a day; Duration: 30 day(s) 01/29/2019 Not-Venkat ing metFORMIN HCl 500 MG 1 tablet with a vineet l Orally Once a day; Duration: 30 day(s) 01/29/2019 Not-Taking Memantine HCl 10 MG 1 tablet Orally Twic e a day; Duration: 30 day(s) 01/29/2019 Active Abilify Active Extra Depth Orthopedic Shoes, (1) Pair With (3) Pair Custom Heat Molded Multidensity Innersoles Dx: NIDDM/PVD(E11.51), Hammertoe Foot Deformity(M20.41,M20.42) , Preulcerative Skin Lesion(s)(L85.1) Wear Daily; Duration: 365 days 07/29/2024 Active Immunizations Vaccine Route Administration Date Status Comme nts Influenza Unknown 01/26/2024 Administered Social History Tobacco Use: Social History Observation Description Date Details (start date - stop date) Never Smoker NA - NA Tobacco use other than smoking: Question Answer Notes Are you an other tobacco user? No Tobacco Control (Standard) Question Answer Notes Tobacco use: Nonsmoker Additional Findings: Tobacco non-user Current no nsmoker AUDIT-C (Standard) Question Answer Notes Did you have a drink containing alcohol in the p ast year? No Points 0 Interpretation Negative Problems Problem Type SNOMED Code ICD Code Onset Dates Problem Status W/U Status Risk Notes Problem Acquired hammer toe of right foot (7051713987609 105) Other hammer toe(s) (acquired), right foot (M20.41) Active confirmed Response to treatment,I mprovement Problem Type 2 diabetes mellitus with peripheral angiopathy (610416418) Type 2 diabetes mellitus with diabetic peripheral angiopathy without gangrene (E11.51) Active confirmed Q7(A), Q8(2B), Q9(1B,2C) Problem Acquired hammer toe of left foot (5939490108060 103) Other hammer toe(s) (acquired), left foot (M20.42) Active confirmed Response to treatment,I mprovement Vital Signs Height 5ft 2in in 01/20/2025 Weight 165 lbs 01/20/2025 BMI 30.18 kg/m2 01/20/2025 Procedures Procedure Date Ordered Date Performed Result Body Sit e 33413-UQUPLQA NAIL, 6 OR MORE 07/29/2024 N/A 96473-Htktadlj Plate 07/29/2024 N/A 51628-BZAK SKIN LESIONS, OVER 4 07/29/2024 N/A 29273-AUVLABP NAIL, 6 OR MORE 01/20/2025 N/A 52149-Xvksnpka Plate 01/20/2025 N/A 99548-RYHL SKIN LESIONS, OVER 4 01/20/2025 N/A Encounters Encounter Location Date Provider Diagnosis [facility] [address] [address] 07/29/2024 Lul Ross Other hammer toe(s) (acquired), right foot M20.41 ; Other hammer toe(s) (acquired), left foot M20.42 ; Type 2 diabetes mellitus with diabetic peripheral angiopathy without gangrene E11.51 ; Tinea unguium B35.1 ; Pain in right toe(s) M79.674 ; Pain in left toe(s) M79.675 and Ingrown nail L60.[address] [address] 01/20/2025 Lul Pattersonier Type 2 diabetes mellitus with diabetic peripheral angiopathy without gangrene E11.51 ; Tinea unguium B35.1 ; Pain in right toe(s) M79.674 ; Pain in left toe(s) M79.675 and Ingrown nail L60.[address] [address] 10/28/2024 Lul Ross Assessments Encounter Date Diagnosis (ICD Code) Assessment Notes Treatment Notes Treatment Clinical Notes Section Notes 07/29/2024 Other hammer toe(s) (acquired), right foot (ICD-10 - M20.41) Patient Educated with: DIABETIC FOOT CARE INSTRUCTIONS.p df (DIABETIC FOOT CARE INSTRUCTIONS.p df) 07/29/2024 Other hammer toe(s) (acquired), left foot (ICD-10 - M20.42) 01/20/2025 Type 2 diabetes mellitus with diabetic peripheral angiopathy without gangrene (ICD-10 - E11.51) Q7(A), Q8(2B), Q9(1B,2C) 01/20/2025 Tinea unguium (ICD-10 - B35.1) 01/20/2025 Pain in right toe(s) (ICD-10 - M79.674) 07/29/2024 Type 2 diabetes mellitus with diabetic peripheral angiopathy without gangrene (ICD-10 - E11.51) Q7(A), Q8(2B), Q9(1B,2C) 07/29/2024 Tinea unguium (ICD-10 - B35.1) 01/20/2025 Pain in left toe(s) (ICD-10 - M79.675) 07/29/2024 Pain in right toe(s) (ICD-10 - M79.674) 01/20/2025 Ingrown nail (ICD-10 - L60.0) 07/29/2024 Pain in left toe(s) (ICD-10 - M79.675) 07/29/2024 Ingrown nail (ICD-10 - L60.0) Plan Of Treatment Pending Test Test Name Order Date X ray : Foot, left 3V 02/21/2022 62986-TXRKNHU NAIL, 6 OR MORE 05/25/2022 79442-TJWHWLQ NAIL, 6 OR MORE 01/12/2022 09211-KCVFRZW NAIL, 6 OR MORE 02/17/2021 35958-OLGTULQ NAIL, 6 OR MORE 09/15/2021 08780-ZDMGDEJ NAIL, 6 OR MORE 01/31/2019 43142-EWOVWUB NAIL, 6 OR MORE 05/02/2019 04340-OJGUCFG NAIL, 6 OR MORE 11/27/2019 00950-TTQXTNB NAIL, 6 OR MORE 02/26/2020 05131-AUJPGDS NAIL, 6 OR MORE 05/27/2020 69600-NVJVVOE NAIL, 6 OR MORE 08/26/2020 02755-GFQXOGG NAIL, 6 OR MORE 11/28/2022 20498-HUEJDPB NAIL, 6 OR MORE 02/22/2023 72868-SHJAYRN NAIL, 6 OR MORE 07/17/2023 76071-NWFNELO NAIL, 6 OR MORE 10/16/2023 57570-XCHWLJP NAIL, 6 OR MORE 07/29/2024 65046-DBZVIGX NAIL, 6 OR MORE 01/20/2025 62305-Oslj Destruction, 1-14 11/28/2022 60565-Yqlr Destruction, -14 10/16/2023 84130-Egzl Destruction, -14 07/17/2023 95704-Xlci Destruction, -14 02/22/2023 68433-Qwub Destruction, -14 08/26/2020 32920-Znjj Destruction, -14 05/27/2020 66066-Ehof Destruction, -14 02/26/2020 71487-Tczx Destruction, -14 11/27/2019 08015-Ctuq Destruction, -14 09/15/2021 35305-Frnb Destruction, 1-14 02/17/2021 57361-Tngv Destruction, 1-14 01/12/2022 83527-Gxmm Destruction, -14 05/25/2022 24757-Tvaehkmh Plate 05/25/2022 43656-Szrhjjeu Plate 01/12/2022 69146-Agrzpaiv Plate 02/17/2021 65710-Hshignjd Plate 09/15/2021 70707-Dwxmpcoc Plate 11/27/2019 33639-Uhjsanwy Plate 02/26/2020 52550-Npnekcri Plate 05/27/2020 64376-Mphucqcq Plate 08/26/2020 35755-Osgpqjwq Plate 02/22/2023 10735-Drmoexpq Plate 11/28/2022 15633-Cspapuzb Plate 07/17/2023 40790-Otgiaota Plate 10/16/2023 38432-Vjoeyqny Plate 07/29/2024 26795-Xjgljgzv Plate 01/20/2025 39828-Azsyifvk Plate Each Additional 43482-Skslyfun Plate Each Additional 68045-Qcchwvqz Plate Each Additional 10/2022 50613-Rimulacf Plate Each Additional 04/2022 85385-Hgaxsluf Plate Each Additional 08/2020 70414-Auwflcub Plate Each Additional 06/2020 27763-Wqqpvgte Plate Each Additional 07/2019 38359-Fbjjcgsq Plate Each Additional 08/2019 81950-Wtszdbio Plate Each Additional 95685-Euwkyuao Plate Each Additional 88771-Svejylph Plate Each Additional 80810-Irvxtoro Plate Each Additional 04/2022 84016-ICDRESA SKIN/TISSUE 02/21/2022 06634 I&D ABSCESS- SIMPLE,SINGLE 022 19719-KXNR SKIN LESIONS, OVER 4 02/23/20 23 00674-CWJB SKIN LESIONS, OVER 4 07/17/19 24 56213-RDYH SKIN LESIONS, OVER 4 10/16/19 24 01625-LSAB SKIN LESIONS, OVER 4 01/21/20 44892-OXFE SKIN LESIONS, OVER 4 07/30/19 22637-GTDC SKIN LESIONS, OVER 4 11/29/19 23 21644-NWXU SKIN LESIONS, OVER 4 05/25/19 83003-YNZS SKIN LESIONS, OVER 4 01/13/20 22 03633-GGBU SKIN LESIONS, OVER 4 10/27/20 21 20305-GSCX SKIN LESIONS, OVER 4 09/16/19 22 42331-HZKE SKIN LESIONS, OVER 4 05/27/19 21 84113-HCRL SKIN LESIONS, OVER 4 08/27/19 21 61174-RFJH SKIN LESIONS, 2 TO 4 02/26/20 Next Appt Details Provider Name:Lul Ross , 05/15/2025 03:00:00 PM, [address], [address], [place], [address], Insurance Providers Payer Name Payer Address Payer Phone Subscriber Number Group Number Insured Name Patient Relationship to Insured Coverage Start Date Coverage End Date [facility] [employer] Claims [address] [place] [id number] April Camacho Self - patient is the insured Medical (General) History Medical History History ICD Code Alzheimers disease Depression Diabetic lots of cramps Surgical History Surgery Date(Month/Year) gall bladder 1987 Hospitalization History Reason Date(Month/[facility]) [facility] 04[facility]29/22 [facility] 01/10/22 [facility] Constipation 02/13/20
== END 2025-03-13 14:43 | disposition home or self-care (01) ==
LOC: HO.HSMS 13:36
PROVIDERS: PCP Student in an Organized Health Care Education/Training Program; Visit Provider Physician Assistant Medical
DX: G47.33 Obstructive sleep apnea (adult) (pediatric) (principal); G25.9 Extrapyramidal and movement disorder, unspecified; R68.89 Other general symptoms and signs; G47.34 Idiopathic sleep related nonobstructive alveolar hypoventilation
CPT/HCPCS: 99214

== ENCOUNTER → 2025-03-13 13:36 | Outpatient (BNVA) | payer OTHER, SELFPAY | PROVIDERS: PCP Student in an Organized Health Care Education/Training Program; Visit Provider Physician Assistant Medical | DX: G47.33 Obstructive sleep apnea (adult) (pediatric) (principal); G25.9 Extrapyramidal and movement disorder, unspecified; R68.89 Other general symptoms and signs; G47.34 Idiopathic sleep related nonobstructive alveolar hypoventilation; Z99.89 Dependence on other enabling machines and devices | CPT/HCPCS: 99212 ==

== ENCOUNTER → 2025-03-17 20:30 | Outpatient (REF) | payer OTHER, SELFPAY ==
--- OUTSIDE RECORDS SUMMARY | 2025-03-12 09:32 | XMS_ITS | Encounter Summary ---
Author Organization [facility] Address [address] [place] [address] Care Team Providers Care Pot Lining Supervisor Name Role Phone Kosta Paula MD Primary Care Provider [phone] Reason for Referral * Hospital - Outpatient (Routine) - Closed Specialty Diagnoses / Procedures Referred By Evita bermudez Referred To Contact Gastroenterology Diagnoses Hx of colonic polyps Procedures COLONOSCOPY Anesthesia - MAC; [facility] ENDOSCOPY Lobo Yanez MD [address] [address] Phone: tel: fax: [facility] End[facility] [address] [place] [address] Phone: tel: Referral ID Status Reason Start Date Expiration Date Visits Re quested Visits Authorized [id number] Closed 12/27/2024 12/27/2025 1 1 Reason for Visit * Auth/Cert (Routine) Specialty Diagnoses / Procedures Referred By Evita bermudez Referred To Contact Diagnoses Personal history of colon polyps, unspecified Procedures COLONOSCOPY WI COLONOSCOPY FLEXIBLE DIAGNOSTIC W COLLECTION SPECIMEN BRUSHING/WASHING [facility] [id number] [place] [phone] [facility] [address] [place] [address] Phone: tel: Referral ID Status Reason Start Date Expiration Date Visits Re quested Visits Authorized [id number] 1 1 Encounter Details Date Type Department Care Team (Latest Contact Info) Description 03/12/2025 9:32 AM EST - 03/12/2025 11:59 PM EST Hospital Encounter [facility] [address] [place] [address] Lobo Yanez MD [address] [address] Suzanna Marin CRNA [address] [place] [address] José Miguel Carballo DO [address] [place] [address] Hx of colonic polyps Discharge Disposition: Home or Self Care Social History Tobacco Use Types Packs/Day Years Used Date Smoking Tobacco: Never Smokeless Tobacco: Never Alcohol Use Standard Drinks/Week Comments Never 0 (1 standard drink = 0.6 oz pur e alcohol) Interpersonal Safety Answer Date Record ed Physical Abuse Unrecognized value 03/12/2025 Verbal Abuse Unrecognized value 03/12/2025 Comments No Sex and Gender Information Value Date Recorded Sex Assigned at Not on file Legal Sex Female 2:14 AM EST Gender Identity Not on file Sexual Orientation Not on file documented as of this encounter Last Filed Vital Signs Vital Sign Reading Time Taken Comments Blood Pressure 143/79 03/12/2025 11:57 AM EST Pulse 71 03/12/2025 11:57 AM EST Temperature 36.8 C (98.2 F) 03/12/2025 10:51 AM EST Respiratory Rate 16 03/12/2025 11:57 AM EST Oxygen Saturation 99% 03/12/2025 11:57 AM EST Inhaled Oxygen Concentration - - Weight 74.8 kg (165 lb) 03/12/2025 10:51 AM EST Height 157.5 cm (5' 2 ) 03/12/2025 10:51 AM EST Body Mass Index 30.18 03/12/2025 10:51 AM EST documented in this encounter Discharge Instructions * Attachments The following attachments cannot be sent through Care Everywhere. * Colonoscopy: General Info (Amharic) documented in this encounter Medications at Time of Discharge atorvastatin (LIPITOR) 20 mg tablet 1 (one) time each day at the same time. bisacodyL (DULCOLAX) 5 mg EC tablet Take 2 tablets by mouth right before beginning bowel prep. See instructions provided by the office 2 tablet 02/26/2025 blood-glucose meter kit 1 each if needed. celecoxib (CeleBREX) 200 mg capsule 1 capsule (200 mg total) 1 (one) time each day at the same time. 05/10/2022 cholecalciferol (VITAMIN D-3) 125 mcg (5,000 unit) capsule 1 capsule (5,000 Units total) 1 (one) time each day at the same time. clotrimazole (LOTRIMIN) 1 % cream 1 Application every 12 hours. cyanocobalamin (VITAMIN B-12) 100 mcg tablet 1 tablet (100 mcg total) 1 (one) time each day at the same time. dapagliflozin propanediol (Farxiga) 10 mg tablet 1 tablet (10 mg total) 1 (one) time each day at the same time. folic acid (FOLVITE) 1 mg tablet 1 tablet (1,000 mcg total) 1 (one) time each day at the same time. linaCLOtide (Linzess) 145 mcg capsule 1 (one) time each day at the same time. metFORMIN (GLUCOPHAGE) 500 mg tablet TAKE 1 TABLET BY MOUTH TWICE DAILY WITH A MEAL for 90 polyethylene glycol (Golytely) 236-22.74-6.74 -5.86 gram solution Take 4L by mouth once for one dose. May substitue any PEG. Starting at 2PM the day before your procedure drink 1 8oz glasses at your own pace until you complete half of the gallon. Finish 2nd half of the gallon at 8PM. 4000 mL 02/26/2025 tirzepatide (Mounjaro) 5 mg/0.5 mL injection Inject 0.5 mL (5 mg total) under the skin. documented as of this encounter Discharge Disposition Disposition Code Departure Means Destination Home or Self Care documented in this encounter Progress Notes * Fuad Arreola RN - 03/12/2025 11:36 AM EST Problem: Physical Regulation:Periop Procedure - Minor Goal: Ability to maintain clinical measurements within normal limits will improve Outcome: Adequate for Discharge Problem: Sensory:Periop Procedure - Minor Goal: Demonstrates/reports adequate pain control Outcome: Adequate for Discharge * Henrietta Calero RN - 03/12/2025 10:41 AM EST Problem: Physical Regulation:Periop Procedure - Minor Goal: Ability to maintain clinical measurements within normal limits will improve Outcome: Progressing Problem: Sensory:Periop Procedure - Minor Goal: Demonstrates/reports adequate pain control Outcome: Progressing PT VERBALIZED UNDERSTAND OF DC INSTRUCTIONS, FALL RISK REVIEWED, CALL GARCIA AT BEDSIDE. documented in this encounter H&P Notes * Lobo Yanez MD - 03/12/2025 11:00 AM EST Pre-Op Diagnosis: Hx polyp Proposed Procedure: colon Performing Surgeon/MD/Endoscopist: Lobo Yanez MD Medical/History: Medical History[1]Surgical History[2] Medications/Allergies: Prior to Admission medications Medication Sig Start Date End Date Taking? Authorizing Provider atorvastatin (LIPITOR) 20 mg tablet 1 (one) time each day at the same time. Yes Historical Provider, bisacodyL (DULCOLAX) 5 mg EC tablet Take 2 tablets by mouth right before beginning bowel prep. See instructions provided by the office 02/26/25 Yes Lobo Yanez MD blood-glucose meter kit 1 each if needed. Yes Historical Provider, celecoxib (CeleBREX) 200 mg capsule 1 capsule (200 mg total) 1 (one) time each day at the same time. 05/10/22 Yes Historical Provider, cholecalciferol (VITAMIN D-3) 125 mcg (5,000 unit) capsule 1 capsule (5,000 Units total) 1 (one) time each day at the same time. Yes Historical Provider, cyanocobalamin (VITAMIN B-12) 100 mcg tablet 1 tablet (100 mcg total) 1 (one) time each day at the same time. Yes Historical Provider, folic acid (FOLVITE) 1 mg tablet 1 tablet (1,000 mcg total) 1 (one) time each day at the same time.Yes Historical Provider, linaCLOtide (Linzess) 145 mcg capsule 1 (one) time each day at the same time. Yes Historical Provider, metFORMIN (GLUCOPHAGE) 500 mg tablet TAKE 1 TABLET BY MOUTH TWICE DAILY WITH A MEAL for 90 Yes Historical Provider, polyethylene glycol (Golytely) 236-22.74-6.74 -5.86 gram solution Take 4L by mouth once for one dose. May substitue any PEG. Starting at 2PM the day before your procedure drink 1 8oz glasses at your own pace until you complete half of the gallon. Finish 2nd half of the gallon at 8PM. 02/26/25 Yes Lobo Yanez MD clotrimazole (LOTRIMIN) 1 % cream 1 Application every 12 hours. Historical Provider, dapagliflozin propanediol (Farxiga) 10 mg tablet 1 tablet (10 mg total) 1 (one) time each day at the same time. Historical Provider, tirzepatide (Mounjaro) 5 mg/0.5 mL injection Inject 0.5 mL (5 mg total) under the skin. Historical Provider, Patient Age:79 y.o. Vitals: Vitals: 03/12/25 1051 BP: (!) 144/76 Pulse: 75 Resp: 18 Temp: 36.8 ??C (98.2 ??F) SpO2: 99% Physical Exam: Mental Status: Clear HEENT: WNL Heart: WNL Lungs: WNL Abdomen: WNL Extremities: WNL Neuro: WNL Labs: Imaging: Diagnosis/Plan: Colonoscopy [1] Past Medical History: Diagnosis Date Depression DX:Depression Hyperlipidemia Hypertension Sleep apnea [2] Past Surgical History: Procedure Laterality Date CHOLECYSTECTOMY PROCEDURE: WI CHOLECYSTECTOMY COLONOSCOPY PROCEDURE: HISTORICAL COLONOSCOPY SHOULDER SURGERY Right PROCEDURE: HISTORICAL SHOULDER SURGERY documented in this encounter Plan of Treatment Upcoming Encounters Date Type Department Care Team (Late st Contact Info) Description 03/27/2025 9:15 AM EST Appointment [facility] at [address] [address] documented as of this encounter Goals Goal Patient Goal Type Associated Problems Recent Progress Patient-Stated? Author Autogenerat ed Goal Care Plan Autogenerated Problem No Wilver Steinberg documented as of this encounter Procedures Procedure Name Priority Date/Time Associated Diagnosis Comments COLONOSCOPY Routine 03/12/2025 11:32 AM EST Hx of colonic polyps documented in this encounter Results * COLONOSCOPY Anesthesia - MAC; [facility] ENDOSCOPY (03/12/2025 11:32 AM EST) Anatomical Region Laterality Modality Other 03/12/2025 11:1 9 AM EST Impressions 03/12/2025 11:34 AM EST - Diverticulosis in the sigmoid colon. - The examination was otherwise normal on direct and retroflexion views. - No specimens collected. Recommendation: - Repeat colonoscopy is not recommended due to current age (66 years or older). Narrative 03/12/2025 11:34 AM EST [facility] GI Patient Name: April Nguyen Procedure Date: 03/12/2025 11:19 AM Date of : 1945 Age: 79 Room: ROOM 15 Gender: Female Note Status: Finalized Attending MD: Lobo Yanez MD, Procedure Date No Time: 03/12/2025 Procedure: Colonoscopy Indications: High risk colon cancer surveillance: Personal history of colonic polyps Providers: Lobo Yanez MD Referring MD: Lobo Yanez MD Medicines: Propofol per Anesthesia Complications: No immediate complications. Estimated Blood Loss: Estimated blood loss: none. Procedure: Pre-Anesthesia Assessment: - ASA Grade Assessment: II - A patient with mild systemic disease. After I obtained informed consent, the scope was passed under direct vision. Throughout the procedure, the patient's blood pressure, pulse, and oxygen saturations were monitored continuously.The Olympus Pediatric Colonoscope was introduced through the anus and advanced to the cecum, identified by appendiceal orifice and ileocecal valve. The colonoscopy was performed without difficulty. The patient tolerated the procedure well. The quality of the bowel preparation was adequate. Findings: The perianal and digital rectal examinations were normal. Multiple diverticula were found in the sigmoid colon. The exam was otherwise without abnormality on direct and retroflexion views. Procedure Code(s): --- Professional --- G0105, Colorectal cancer screening; colonoscopy on individual at high risk Diagnosis Code(s): --- Professional --- Z86.010, Personal history of colonic polyps K57.30, Diverticulosis of large intestine without perforation or abscess without bleeding CPT copyright 2020 [employer]. All rights reserved. The codes documented in this report are preliminary and upon volcanologist review may be revised to meet current compliance requirements. Lobo Yanez MD 03/12/2025 11:34:12 AM This report has been signed electronically.Lobo Yanez MD Number of Addenda: 0 Note Initiated On: 03/12/2025 11:19 AM Scope In: Scope Out: Endoscopy Department at [facility] - [address] [place] [id number] Procedure Note Lobo Yanez MD - 03/12/2025 [facility] GI Patient Name: April Nguyen Procedure Date: 03/12/2025 11:19 AM Date of : 1945 Age: 79 Room: ROOM 15 Gender: Female Note Status: Finalized Attending MD: Lobo Yanez MD, Procedure Date No Time: 03/12/2025 Procedure: Colonoscopy Indications: High risk colon cancer surveillance: Personalhistory of colonic polyps Providers: Lobo Yanez MD Referring MD: Lobo Yanez MD Medicines: Propofol per Anesthesia Complications: No immediate complications. Estimated Blood Loss: Estimated blood loss: none. Procedure: Pre-Anesthesia Assessment: - ASA Grade Assessment: II - A patient with mild systemic disease. After I obtained informed consent, the scope was passed under direct vision. Throughout theprocedure, the patient's blood pressure, pulse, and oxygen saturations were monitored continuously.The Olympus Pediatric Colonoscope was introduced through theanus and advanced to the cecum, identified byappendiceal orifice and ileocecal valve. The colonoscopy was performed without difficulty. The patient tolerated the procedure well. The quality of the bowel preparation was adequate. Findings: The perianal and digital rectal examinations were normal. Multiple diverticula were found in the sigmoidcolon. The exam was otherwise without abnormality ondirect and retroflexion views. Procedure Code(s): --- Professional --- G0105, Colorectal cancer screening; colonoscopy on individual at high risk Diagnosis Code(s): --- Professional --- Z86.010, Personal history of colonic polyps K57.30, Diverticulosis of large intestine without perforation or abscess without bleeding CPT copyright 2020 [employer]. All rights reserved. The codes documented in this report are preliminary and upon volcanologist reviewmay be revised to meet current compliance requirements. Lobo Yanez MD 03/12/2025 11:34:12 AM This report has been signed electronically.Lobo Yanez MD Number of Addenda: 0 Note Initiated On: 03/12/2025 11:19 AM Scope In: Scope Out: Endoscopy Department at [facility] - [address] [place] [phone] IMPRESSION: - Diverticulosis in the sigmoid colon. - The examination was otherwise normal on directand retroflexion views. - No specimens collected. Recommendation: - Repeat colonoscopy is not recommended due tocurrent age (66 years or older). Lobo Yanez MD GI~PROCEDURE ORDERABLES Fin al Result documented in this encounter Visit Diagnoses Diagnosis Hx of colonic polyps Personal history of colonic polyps Encounter for screening mammogram for breast cancer documented in this encounter Orders Discharge Count Last Ordered Date First Orde red Date DISCHARGE PATIENT 1 03/12/2025 documented in this encounter Additional Health Concerns Active Problems Noted Date Diagnosed Date Autogenerated Problem 02/11/2025 documented as of this encounter Care Teams Pot Lining Supervisor Relationship Specialty Start Date End Date Kosta Paula MD [address] [place] [id number] PCP - General Internal Medicine 08/13/24 documented as of this encounter
--- OUTSIDE RECORDS SUMMARY | 2025-03-12 11:17 | XMS_ITS | Encounter Summary ---
Author Organization [facility] Address [address] [place] [id number] Care Team Providers Care Director Motion Picture Name Role Phone Kosta Paula MD Primary Care Provider [phone] Reason for Visit * Auth/Cert (Routine) Specialty Diagnoses / Procedures Referred By Evita bermudez Referred To Contact Diagnoses Personal history of colon polyps, unspecified Procedures COLONOSCOPY TX COLONOSCOPY FLEXIBLE DIAGNOSTIC W COLLECTION SPECIMEN BRUSHING/WASHING [address] [id number] [facility] [address] [place] [address] Phone: tel: Referral ID Status Reason Start Date Expiration Date Visits Re quested Visits Authorized [id number] 1 1 Encounter Details Date Type Department Care Team (Late st Contact Info) Description 03/12/2025 11:17 AM EST Anesthesia Event [facility] [address] [place] [address] Gloria Horn MD [address] [place] [address] Anesthesia Record Procedure Summary Procedure Name Responsible Anesthesiologist Anesthesia Start Time Anesthesia Stop Time COLONOSCOPY Gloria Horn MD 03/12/25 1117 03/12/25 113 1 Events Date Time Event Comment 03/12/2025 1050 1117 An Start 1117 An Start Data The patient wa s reevaluated immediately before moderate or deep sedation use and before anesthesia induction. 1117 Anesthesia Ready 1117 In Room 1131 an stop data 1131 An Stop 1132 Out of Room 1201 Handoff to RN I completed my handoff to the receiving nurse during which we: 1. Identified the patient 2. Identified the responsible provider 3. Reviewed the pertinent medical history 4. Discussed the surgical course 5. Reviewed intra-op anesthesia management and issues during anesthesia 6. Set expectations for post-procedure period 7. Allowed opportunity for questions and acknowledgement of understanding. Meds Name Total propofol (DIPRIVAN) injection 10 mg/mL 1 00 mg lidocaine PF (XYLOCAINE-MPF) local injec tion 2% 40 mg lactated Ringer's infusion 250 mL * Agents Name O2 * Blood No blood administrations on file. Lines, Drains, and Airways Type Details Placement Removal Peripheral IV Placement Date: 02/22 01/16; Placement Time: 1053; Catheter Size: 22 G; Orientation: Anterior, Proximal, Right; Location: Forearm; Insertion Attempts: 2; Patient Tolerance: Tolerated well; Removal Date: 03/12/25; Removal Time: 1158 03/12/25 1053 by Henrietta Calero RN 03/12/25 1158 by Fuad Arreola RN documented in this encounter Social History Tobacco Use Types Packs/Day Years [...] as of this encounter Progress Notes * Suzanna Marni CRNA - 03/12/2025 12:01 PM EST Patient: April Nguyen Procedure Summary Date: 03/12/25 Room / Location: [facility] Anesthesia Start: 1117 Anesthesia Stop: 1131 Procedure: COLONOSCOPY Diagnosis: Hx of colonic polyps (High risk colon cancer surveillance: Personal history of colonic polyps) Scheduled Providers: Lobo Yanez MD; Suzanna Marin CRNA; Gloria Horn MD Responsible Provider: Gloria Horn MD Anesthesia Type: MAC ASA Status: 3 Anesthesia Plan: MAC Last Vitals: Vitals Value Taken Time BP 143/79 03/12/25 11:57 Temp 03/12/25 12:01 Pulse 71 03/12/25 11:57 Resp 16 03/12/25 11:57 SpO2 99 % 03/12/25 11:57 No data recorded Anesthesia Post Evaluation Patient location during evaluation: PACU Patient participation: complete - patient participated Level of consciousness: sleepy but conscious Pain score: 0 Pain management: adequate Airway patency: patent Anesthetic complications: no Cardiovascular status: blood pressure returned to baseline and stable Respiratory status: acceptable Hydration status: stable Nausea: No Vomiting: No There were no known notable events for this encounter. * Gloria Horn MD - 03/12/2025 10:49 AM EST 79 y.o. female scheduled for [COLONOSCOPY [GI6]] Ht Readings from Last 1 Encounters: No data found for Ht Wt Readings from Last 1 Encounters: No data found for Wt There is no height or weight on file to calculate BMI. Medical History[1] Surgical History[2] Denies anesthesia complications Allergies[3] Medications Ordered Prior to Encounter[4] Current In-hospital Medications MEDSSCHEDULED[5] MEDSCONTINUOUS[6] MEDSPRN[7] Social History[8] Is the patient a current smoker (e.g. cigarette, cigar, pip, e-cigarette, or mariajuana)? Yes [] No[] Patient previously instructed to abstain from smoking on the day of procedure? Yes [] No[] Patient smoked on the day of procedure? Yes [] No[] ASPIRE smoking VBR: [] Not interested in quitting [] Interested in quitting- referred to treatment [] Interested in quitting - treatment provided Visit Vitals Smoking Status Never Available cardiac studies reviewed: No results found. EKG No results found for this or any previous visit (from the past 4464 hours). ECHO No results found for this or any previous visit. CATH No results found for this or any previous visit. LABS: Lab Results Component Value Date WBC 7.0 08/13/2024 HGB 11.0 (L) 08/13/2024 HCT 35.6 08/13/2024 MCV 87.3 08/13/2024 PLT 302 08/13/2024 Lab Results Component Value Date GLUCOSE 108 (H) 08/13/2024 CALCIUM 9.4 08/13/2024 NA 138 08/13/2024 K 4.4 08/13/2024 CO2 27 08/13/2024 CL 105 08/13/2024 BUN 19 08/13/2024 CREATININE 0.84 08/13/2024 No results found for: INR , PROTIME No results found for: PTT Denies cardiac, pulm, neuro, hepatic or renal s/sx. Patient meets ASA guidelines for NPO status. > 4 mets without anginal symptoms. Relevant labs, vitals, imaging, cardiac and pulmonary studies as well as HPI, Meds, Allergies, ROS,PMH, PSH, SH, and FH reviewed. Relevant Problems No relevant active problems Clinical information reviewed: Allergies Meds Anesthesia Plan ASA 3 Anesthesia Plan: MAC Anesthesia Considerations MAC Plan Factors Patient is not a current smoker Smoking cessation education has not been provided Induction method: intravenous Anesthetic plan and risks discussed with patient. Anesthesia Plan discussed with HAND II THERMAL CUTTER. Anesthesia Evaluation Airway Mallampati: II Thyromental distance: >3 FB Neck ROM: fullnot intubatedno noted risk Dental Pulmonary breath sounds clear to auscultation Cardiovascular Rhythm: regular Rate: normal Neuro/Psych Mental Status: alert and oriented GI/Hepatic/Renal Endo/Other Abdominal Abdomen: soft. Bowel sounds: normal. PONV RISK SCORE: 2 There were no vitals filed for this visit. SpO2 Readings from Last 1 Encounters: No data found for SpO2 WBC Date Value Ref Range Status 08/13/2024 7.0 4.8 - 10.8 K/mcL Final RBC Date Value Ref Range Status 08/13/2024 4.10 3.80 - 4.80 M/mcL Final Hemoglobin Date Value Ref Range Status 08/13/2024 11.0 (L) 11.5 - 16.0 g/dL Final Hematocrit Date Value Ref Range Status 08/13/2024 35.6 35.0 - 47.0 % Final Platelets Date Value Ref Range Status 08/13/2024 302 130 - 400 K/mcL Final MCV Date Value Ref Range Status 08/13/2024 87.3 79.0 - 98.0 FL Final Allergies[9] STOP BANG: No data recorded NPO Status: Time of Last Liquid: 0700 [1] Past Medical History: Diagnosis Date Depression DX:Depression [2] Past Surgical History: Procedure Laterality Date CHOLECYSTECTOMY PROCEDURE: TX CHOLECYSTECTOMY COLONOSCOPY PROCEDURE: HISTORICAL COLONOSCOPY SHOULDER SURGERY Right PROCEDURE: HISTORICAL SHOULDER SURGERY [3] No Known Allergies [4] Current Outpatient Medications on File Prior to Encounter Medication Sig Dispense Refill atorvastatin (LIPITOR) 20 mg tablet 1 (one) time each day at the same time. bisacodyL (DULCOLAX) 5 mg EC tablet Take 2 tablets by mouth right before beginning bowel prep. See instructions provided by the office 2 tablet 0 blood-glucose meter kit 1 each if needed. celecoxib (CeleBREX) 200 mg capsule 1 capsule (200 mg total) 1 (one) time each day at the same time. cholecalciferol (VITAMIN D-3) 125 mcg (5,000 unit) capsule 1 capsule (5,000 Units total) 1 (one) time each day at the same time. cyanocobalamin (VITAMIN B-12) 100 mcg tablet 1 [...] of the gallon at 8PM. 4000 mL 0 clotrimazole (LOTRIMIN) 1 % cream 1 Application every 12 hours. dapagliflozin propanediol (Farxiga) 10 mg tablet 1 tablet (10 mg total) 1 (one) time each day at the same time. tirzepatide (Mounjaro) 5 mg/0.5 mL injection Inject 0.5 mL (5 mg total) under the skin. No current facility-administered medications on file prior to encounter. [5] [6] [7] [8] Social History Tobacco Use Smoking status: Never Smokeless tobacco: Never Substance Use Topics Alcohol use: Never Drug use: Never [9] No Known Allergies documented in this encounter Plan of Treatment Upcoming Encounters Date Type Department Care Team (Late st Contact Info) Description 03/27/2025 9:15 AM EST Appointment [facility] at [address] [address] documented as of this encounter Goals Goal Patient Goal Type Associated Problems Recent Progress Patient-Stated? Author Autogenerat ed Goal Care Plan Autogenerated Problem No Wilver Steinberg documented as of this encounter Visit Diagnoses Not on filedocumented in this encounter Administered Medications Inactive Administered Medications - up to 3 most recent administrations Medication Order MAR Action Action Date Dose Rate Site lactated Ringer's infusion intravenous, Continuous PRN, Starting on Mon03/12/25 at 1121, Anesthesia Intraprocedure New Bag 03/12/2025 11:21 AM EST lidocaine (PF) (XYLOCAINE-MPF) 2 % injection injection, As needed, Starting on Mon03/12/25 at 1121, Anesthesia Intraprocedure Given 03/12/2025 11:21 AM EST 40 mg propofoL (DIPRIVAN) injection intravenous, As needed, Starting on Mon03/12/25 at 1121, Anesthesia Intraprocedure Given 03/12/2025 11:26 AM EST 50 mg Given 03/12/2025 11:21 AM EST 50 mg documented in this encounter Additional Health Concerns Active Problems Noted Date Diagnosed Date Autogenerated Problem 02/11/2025 documented as of this encounter Care Teams Director Motion Picture Relationship Specialty Start Date End Date Kosta Paula MD [address] [place] [id number] PCP - General Internal Medicine 08/13/24 documented as of this encounter
--- OUTSIDE RECORDS SUMMARY | 2025-03-17 21:26 | XMS_ITS | Clinical Summary ---
Author Organization [address] Address [address] [place] [address] Phone Care Team Providers Care Supervisor Liquid Yeast Name Role Phone Gavi Paula MD Primary Care Provider [phone] Allergies No known active allergies Medications linaCLOtide [...] meter kit 1 each if needed. Active bisacodyL (DULCOLAX) 5 mg EC tablet Take 2 tablets by mouth right before beginning bowel prep. See instructions provided by the office 2 tablet 5 Active polyethylene glycol (Golytely) 236-22.74-6.74 -5.86 gram solution Take 4L by mouth once for one dose. May substitue any PEG. Starting at 2PM the day before your procedure drink 1 8oz glasses at your own pace until you complete half of the gallon. Finish 2nd half of the gallon at 8PM. 4000 mL 5 Active Encounters Date Type Department Care Team Description 03/12/2025 11:17 AM EST Anesthesia Event [facility] [address] [place] [address] Gloria Horn MD 03/12/2025 9:32 AM EST - 03/12/2025 11:59 PM EST Hospital Encounter [facility] [address] [place] [address] Lobo Yanez MD Barnes, Tyanna R, CRNA Korobkov, Vitaliy, DO Hx of colonic polyps Discharge Disposition: Home or Self Care 12/27/2024 Telephone Gastroenterology - [place] [address] [facility] [address] [facility] [address] [place] [address] Germán Rudolph MD from Last 3 Months Surgical History Surgery Date Site/Laterality Comments SHOULDER SURGERY Right PROCEDURE: HISTORICAL SHOULDER SURGERY CHOLECYSTECTOMY PROCEDURE: [place] CHOLECYSTECTOMY COLONOSCOPY PROCEDURE: HISTORICAL COLONOSCOPY Medical History Medical History Date Comments Depression DX:Depression Hyperlipidemia Hypertension Sleep apnea Family History Medical History Relation Name Comments [...] Sexual Orientation Not on file Obstetrics History Last Filed Vital Signs Vital Sign Reading [...] Mass Index 30.18 03/12/2025 10:51 AM EST Plan of Treatment Upcoming Encounters Date Type Department Care Team (Late st Contact Info) Description 03/27/2025 9:15 AM EST [facility]ointment [facility] at [address] [address] Health Maintenance Due Date Last Done Comments Diabetes: Annual Foot Exam 10/23/1957 Diabetes: Annual Retina Eye Exam 10/23/1957 Pneumococcal Vaccine: 50+ Years (1 of 2 - PCV) 10/23/1966 Zoster Vaccines (1 of 2) 10/23/1997 Hepatitis C Screening 03/27/2022 Osteoporosis Screening (Bone Density Screening) 03/27/2022 Social Influencers of Health Screening 03/27/2022 Diabetes: Annual Urine Albumin-Creatinine Ratio (uACR) 04/07/2022 RSV Immunization Adult Patients (1 - 1-dose 75+ series) 10/23/2022 Depression Screening 04/24/2024 COVID-19 Vaccine (2 - season) 2024 03/16/2021 Diabetes: Blood Sugar Control Test (HGBA1C) 02/12/2025 08/13/2024 Diabetes: Annual GFR (Glomerular Filtration Rate) 08/13/2025 08/13/2024 Falls Risk Assessment 03/12/2026 03/12/2025 Cholesterol Screening (Lipid Panel) 08/13/2029 08/13/2024 DTaP,Tdap,and Td Vaccines (2 - Td or Tdap) 04/30/2032 04/30/2022 Breast Cancer Screening Discontinued 06/21/19 24, 05/26/2022, 04/01/2021, Additional history exists Influenza Vaccine Completed 01/27/2025, , 01/26/2021, Additional history exists Colorectal Cancer Screening: Colonoscopy Discontinued 03/12/2025 HIB Vaccines Aged Out No longer eligi [...] on patient's age to complete this topic Goals Goal Patient Goal Type Associated Problems Recent Progress Patient-Stated? Author Autogenerat ed Goal Care Plan Autogenerated Problem No Wilver Steinberg Procedures Procedure Name Priority Date/Time Associated Diagnosis Comments COLONOSCOPY Routine 03/12/2025 11:32 AM EST Hx of colonic polyps COMPREHENSIVE METABOLIC PANEL Routine 08/13/2024 8:09 AM [...] Recently Relevant to Health Maintenance Results * COLONOSCOPY Anesthesia - MAC; [facility] ENDOSCOPY (03/12/2025 11:32 AM EST) Anatomical Region Laterality Modality Other 03/12/2025 11:1 9 AM EST Impressions 03/12/2025 11:34 AM EST - Diverticulosis in the sigmoid colon. - The examination was otherwise normal on direct and retroflexion views. - No specimens collected. Recommendation: - Repeat colonoscopy is not recommended due to current age (66 years or older). Narrative 03/12/2025 11:34 AM EST [facility] Patient Name: April Nguyen Procedure Date: [...] or abscess without bleeding CPT copyright 2020 [employer]. All rights reserved. The codes documented in this report are preliminary and upon crusher and blender operator review may be revised to meet current compliance requirements. Lobo Yanez MD 03/12/2025 11:34:12 AM This report has been signed electronically.Lobo Yanez MD Number of Addenda: 0 Note Initiated On: 03/12/2025 11:19 AM Scope In: Scope Out: Endoscopy Department at [facility] - [address] [place] [phone] Procedure Note Lobo Yanez MD - 03/12/2025 [facility] Patient Name: April Nguyen Procedure Date: [...] or abscess without bleeding CPT copyright 2020 [employer]. All rights reserved. The codes documented in this report are preliminary and upon crusher and blender operator reviewmay be revised to meet current compliance requirements. Lobo Yanez MD 03/12/2025 11:34:12 AM This report has been signed electronically.Lobo Yanez MD Number of Addenda: 0 Note Initiated On: 03/12/2025 11:19 AM Scope In: Scope Out: Endoscopy Department at [facility] - [address] [place] [phone] IMPRESSION: - Diverticulosis in the sigmoid colon. - The examination was otherwise normal on directand retroflexion views. - No specimens collected. Recommendation: - Repeat colonoscopy is not recommended due tocurrent age (66 years or older). Lobo Yanez MD GI~PROCEDURE ORDERABLES Fin al Result * Lipid panel with reflex to direct [...] METHOD 08/13/2024 10:10 AM [facility] VLDL Cholesterol Rogelio 26.2 mg/dL LAB CHEMISTRY METHOD 08/13/2024 10:10 AM [facility] Non HDL Chol. (LDL+VLDL) 91 <145 mg/dL LAB CHEMISTRY METHOD 08/13/2024 10:10 AM [facility] Chol/HDL Ratio 2.3 0.0 - 4.4 LAB CHEMISTRY METHOD 08/13/2024 10:10 AM EDT [facility] Blood Venous blood specimen / Unknown Venipuncture / Unknown 08/13/2024 8:09 AM EDT 08/13/2024 9:10 AM EDT Ronni Bradley [employer] LAB BLOOD ORDERABLES Final Re sult Performing Organization Address [facility]/ZIP Co de Phone Number [facility] [address] [place] [address], [place] [phone] * (ABNORMAL) Hemoglobin A1c (08/13/2024 8:09 AM EDT) Hemoglobin A1C 6.8(H) <6.5 % LAB CHEMISTRY METHOD 08/13/2024 11:45 AM EDT [facility] Mean Bld Glu Estim. 148 mg/dL LAB CHEMISTRY METHOD 08/13/2024 11:45 AM EDT [facility] Blood Venous blood specimen / Unknown Venipuncture / Unknown 08/13/2024 8:09 AM EDT 08/13/2024 9:11 AM EDT Ronni Bradley [employer] LAB BLOOD ORDERABLES Final Re sult Performing Organization Address [facility]/ZIP Co de Phone Number [facility] [address] [place] [address], [place] [phone] * (ABNORMAL) Comprehensive metabolic panel (08/13/2024 8:09 AM EDT) Sodium 138 133 - 145 mmol/L LAB CHEMISTRY METHOD 08/13/2024 10:10 AM EDT [facility] Potassium 4.4 3.5 - 5.5 mmol/L LAB CHEMISTRY METHOD 08/13/2024 10:10 AM EDT [facility] Chloride 105 96 - 110 mmol/L LAB CHEMISTRY METHOD 08/13/2024 10:10 AM EDT [facility] CO2 27 21 - 32 [...] g/dL LAB CHEMISTRY METHOD 08/13/2024 10:10 AM EDT [facility] Total Bilirubin 0.3 0.0 - 1.4 mg/dL LAB CHEMISTRY METHOD 08/13/2024 10:10 AM EDT [facility] Blood Venous blood specimen / Unknown Venipuncture / Unknown 08/13/2024 8:09 AM EDT 08/13/2024 9:10 AM EDT us Ronni Bradley [employer] LAB BLOOD ORDERABLES Final Re sult [facility] [address] [place] [address], * VISH SCREENING DIGITAL (06/21/2023 4:40 PM EST) Anatomical Region Laterality Modality Mammography 06/21/2023 3:37 PM EST Narrative 06/21/2023 4:40 PM EST [facility] Diagnostic Imaging Department [address] [place] [address] Patient: APRIL JEANO.B./Age/Sex: 1945 - 77 - F Unit#: [id number] Location/Status: SPDIMAM/REG CLI Mnemonic/Ordering Site: DIGSC/SPMAM Ordering Physician: GAVI PAULA MD Vish Screening Digital - 06/21/231620 Report Status:Signed EXAM: Vish Screening Digital EXAM DATE AND TIME: 06/21/2023 4:22 PM HISTORY: Annual screening COMPARISON: Multiple exams dating back to 2019 TECHNIQUE: Bilateral digital breast tomosynthesis was performed in the CC and MLO projections. 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 TISSUE DENSITY: b. [...] Routine screening mammogram BILATERAL in 1 year. 3611F, 5121F Dictating Physician: GREG CHERRY MD Electronically Signed by: GREG CHERRY MD Dic Date/Time: 06/21/23 1639 Sign date/Time: 06/21/23 1640 Procedure Note Greg Cherry MD - 12/11/2023 [facility] Diagnostic Imaging Department [address] [place] [address] Patient: APRIL JEAN /Age/Sex: 1945 - 77 -F Unit#: [id number] [facility] Ordering Physician: GAVI PAULA MD [facility] Screening Digital - 06/21/23 - 1621 Report Status:Signed EXAM: [facility] Screening Digital EXAM DATE AND TIME: 06/21/2023 4:22 PM HISTORY: Annual screening COMPARISON: Multiple exams dating back to 2019 TECHNIQUE: Bilateral digital breast tomosynthesis was performed in the CCand MLO projections. Computer aided detection with [employer] 3D 3.1was employed. TISSUE DENSITY: b. There [...] in 1 year. 3341F, 7025F Dictating Physician: GREG CHERRY MD Electronically Signed by: GREG CHERRY MD Dic Date/Time: 06/21/23 1639 Sign date/Time: 06/21/23 1640 Gavi Paula MD IMG BI PROCEDURES Final Result from Last 3 Months or Most Recently Relevant to Health Maintenance Additional Health Concerns Active Problems Noted Date Diagnosed Date Autogenerated Problem 02/11/2025 Insurance [facility] Member Subscriber Plan / Payer (Ef fective 2018-Present) Name:April Jean Relation to Subscriber:Self Name:April Jean Payer ID:[id number] Group ID:[id number] Type:Not on file Address: [place] [address] [place] [phone] Care Teams Supervisor Liquid Yeast Relationship Specialty Start Date End Date Gavi Paula MD [address] [place] [id number] PCP - General Internal Medicine 08/13/24
== END ==
LOC: HO.SL 20:30
PROVIDERS: PCP Internal Medicine; Visit Provider Nurse Practitioner Family
DX: G47.33 Obstructive sleep apnea (adult) (pediatric) (principal); G47.34 Idiopathic sleep related nonobstructive alveolar hypoventilation; Z99.89 Dependence on other enabling machines and devices
CPT/HCPCS: 95811

== ENCOUNTER → 2025-03-17 21:58 | Outpatient (BNV) | payer OTHER, SELFPAY | PROVIDERS: PCP Internal Medicine; Visit Provider Psychiatry & Neurology Neurology | DX: G47.33 Obstructive sleep apnea (adult) (pediatric) (principal) | CPT/HCPCS: 95811 ==